=== PATIENT | female | born 1990 | race Caucasian/White ===

== ENCOUNTER 2021-09-30 12:21 | Emergency (ER) | payer MEDICAID, SELFPAY ==
[2021-09-30 12:54] VITALS: BP 127/90; PULSE 76; RESP 18; TEMP 36.9; O2SAT 99; BMI 23.8
[2021-09-30 14:42] LABS: PLT CLUMP 1
[2021-09-30 14:44] LABS: Hematocrit 40.4 % (37.0-47.0); Hemoglobin 13.5 g/dl (12.0-16.0); Mean Corpuscular HGB Conc 33.4 g/dl (31.0-35.0); Mean Corpuscular Hemoglobin 29.5 pg (27.0-33.0); Mean Corpuscular Volume 88.2 fL (80.0-98.0); Mean Platelet Volume 10.6 fL (9.4-12.3); Red Blood Count 4.58 X10*6/uL (4.20-5.50); Red Cell Distribution Width 12.8 % (11.0-16.0)
[2021-09-30 14:48] LABS: COVID-19 Test Negative (Negative)
[2021-09-30 14:54] LABS: IDNOW Serial# 55D5AD1C; Influenza A Negative (Negative); Influenza B2 Negative (Negative)
[2021-09-30 15:00] LABS: Strep A Nucleic Acid Negative (Negative)
[2021-09-30 15:01] LABS: Alanine Aminotransferase 67 U/L (0-31); Albumin Level 4.1 g/dL (3.5-5.0); Alkaline Phosphatase 70 U/L (39-117); Anion Gap 12 (12-20); Aspartate Amino Transferase 55 U/L (5-31); Bilirubin Total 0.5 mg/dL (0.0-1.0); Blood Urea Nitrogen 10 mg/dL (9-16); Calcium 9.4 mg/dL (8.4-10.2); Carbon Dioxide 26 mmol/L (22-29); Chloride 104 mmol/L (96-108); Creatinine Clr Calc Pharmacy 85.9; Estimated Glomerular Filt Rate > 60; Glucose Random 106 mg/dL (60-115); Potassium 4.1 mmol/L (3.3-5.1); Sodium 138 mmol/L (135-145); Total Protein 7.8 g/dL (6.5-8.0)
[2021-09-30 15:40] LABS: Platelet Count 124 X10*3/uL (160-400); White Blood Count 8.1 X10*3/uL (4.8-10.8)
[2021-09-30 16:17] LABS: Atypical Lymph Absolute Manual 1.1 x10*3/uL; Atypical Lymphs Percent Manual 14 % (0-6); Band Neutrophils Percent 1 % (3-5); Basophils Abs Manual 0.1 X10*3/uL (0.0-0.2); Basophils Percent Manual 1 % (0-2); Eosinophils Absolute Manual 0.2 X10*3/uL (0.0-0.4); Eosinophils Percent Manual 2 % (0-4); Lymphocytes Absolute Manual 3.8 X10*3/uL (1.2-4.9); Lymphocytes Percent Manual 47 % (20-40); Monocytes Absolute Manual 0.6 X10*3/uL (0.1-1.2); Monocytes Percent Manual 7 % (2-11); Neutrophils Absolute Manual 2.3 X10*3/uL (2.0-8.3); Neutrophils Percent Manual 28 % (45-73)
[2021-09-30 16:19] LABS: Microcytosis 1+ (5-14) /OIF; RBC Morphology NOTED
[2021-09-30 16:20] LABS: Giant Platelet PRESENT; Large Platelet PRESENT; Platelet Estimate SLIGHTLY DECREASED (NORMAL); Platelet Morphology Comment NOTED; Polychromasia 1+ (0-2) /OIF
[2021-09-30 16:21] LABS: Smudge Cells PRESENT; Toxic Granulation PRESENT; Toxic Vacuolation PRESENT
--- NOTE | 2021-09-30 17:00 | ED.GENADULT ---
HPI - General Adult General Chief complaint: General Medical Stated complaint: body aches Time Seen by Provider: 09/30/21 12:24 Source: patient Mode of arrival: ambulatory Limitations: no limitations History of Present Illness HPI narrative: 31-year-old female presents with symptoms that started yesterday body ache and sore throat. Patient lives with 3 other people 2 of which have tested positive for influenza A. No cough, no chest pain, no shortness of breath, no diarrhea, vomiting, abdominal pain, no urinary frequency or dysuria Related Data Previous Rx's Medication Instructions Recorded oseltamivir 75 mg capsule 75 mg PO BID 5 Days #10 cap 09/30/21 Allergies Allergy/AdvReac Type Severity Reaction Status Date / Time No Known Allergies Allergy Unverified 02/20/20 19:33 [No Known Allergies*] Review of Systems Constitutional: Constitutional: Reports body ache(s), Reports chills, Denies fatigue, Denies fever(s), Denies headache(s), Reports malaise and Denies weakness Eyes: Eyes: Denies diplopia ENT: Denies vertigo, Denies dizziness, Denies otalgia, Denies headache(s), Reports post nasal drip, Denies sinus pain and Reports sore throat Cardiovascular: Cardiovascular: Denies chest pain, Denies syncope, Denies leg edema, Denies lightheadedness, Denies Loss of Consciousness, Denies palpitations and Denies dyspnea Respiratory: Respiratory: Denies chest congestion, Denies cough and Denies dyspnea Gastrointestinal: Gastrointestinal: Denies abdominal pain, Denies hematochezia, Denies constipation, Denies diarrhea and Denies vomiting Musculoskeletal: Musculoskeletal: Reports myalgias Neurologic: Denies confusion, Denies vertigo, Denies dizziness, Denies syncope, Denies headache(s) and Denies weakness Psychiatric: Psychiatric: Denies anxiety, Denies confusion and Denies depression Endocrine: Endocrine: Denies fatigue and Denies palpitations [facility] Past Medical History Medical History (Updated 09/30/21 @ 16:20 by LATONYA Hurtado) No known health problems Social History Social History Advance Directives: No Advance Directives Information Provided: No Patient : No Physical Exam ED Vital Signs: Vital Signs - 24 hr 09/30/21 12:54 Temperature 98.5 F Pulse Rate 76 Respiratory Rate 18 Blood Pressure 127/90 H Pulse Oximetry 99 BMI result Body Mass Index 23.8 Const General: No confusion Nutritional Appearance: well nourished Orientation/consciousness: No confusion Limitations: no limitations HENMT Head: Yes normal to inspection, Yes normocephalic and Yes atraumatic Ears: hearing grossly normal bilaterally, external ears normal, TM's normal bilaterally and EAC's normal General nose exam: Normal external nose present Face and sinus: Yes normal facial exam and Yes sinuses nontender Mouth: mucous membranes dry Throat: Yes posterior oropharynx abnormal and Yes postnasal drainage Eyes Conjunctivae: conjunctivae normal Pupils: Equal, round and reactive pupils present EOM: EOMs intact bilaterally Neck Neck: Yes full ROM, Yes no lymphadenopathy and Yes supple Resp Effort & Inspection: normal respiratory effort and able to speak in complete sentences Auscultation: clear to auscultation bilaterally, no crackles, no rales, no rhonchi and no wheezes Cardio Rate: regular rate Rhythm: regular rhythm Heart sounds: S1 normal heart sound present and S2 normal heart sound present GI Inspection: Yes normal to inspection Palpation (GI): Soft to palpation, nontender, no guarding and not rigid Percussion: Yes normal to percussion Auscultation: normal bowel sounds Skin General skin exam: no rashes or lesions noted Neuro General: No confusion Cranial nerves: Yes Equal, round and reactive pupils present Extrem General: Yes normal to inspection and Yes full ROM Psych Appearance: grossly normal Affect: normal affect Attitude: cooperative Thought process: Normal thought process present Course Course Course Narrative: 31-year-old female with flu-like symptoms that started yesterday. Patient has 2/3 other people she lives with test positive for flu today. On exam, stable vitals, lungs clear to auscultation bilaterally. Injected oropharynx. Will treat with Tamiflu given patient's flu exposure and most likely etiology of this viral illness Gave return precautions Medical Decision Making Lab Data Result diagrams: 09/30/21 14:31 09/30/21 14:31 Labs: Lab Results 09/30/21 09/30/21 09/30/21 Range/Units 13:45 13:45 13:45 WBC (4.8-10.8) X10*3/uL RBC (4.20-5.50) X10*6/uL Hgb (12.0-16.0) g/dl Hct (37.0-47.0) % MCV (80.0-98.0) fL MCH (27.0-33.0) pg MCHC (31.0-35.0) g/dl RDW (11.0-16.0) % Plt Count (160-400) X10*3/uL MPV (9.4-12.3) fL Immature Gran % (Auto) Neut % (Auto) Lymph % (Auto) Crook % (Auto) Eos % (Auto) Baso % (Auto) Lymph # (Auto) [place] # (Auto) Eos # (Auto) Baso # (Auto) Abs Immat Gran (auto) Absolute Neuts (auto) Absolute Nucleated RBC (0.0-0.012) X10*3/uL Nucleated RBC % (auto) (0.0-0.2) /100WBC Neutrophils % (Manual) (45-73) % Band Neutrophils % (3-5) % Lymphocytes % (Manual) (20-40) % Atypical Lymphs % (Man) (0-6) % Monocytes % (Manual) (2-11) % Eosinophils % (Manual) (0-4) % Basophils % (Manual) (0-2) % Abs Neuts (Manual) (2.0-8.3) X10*3/uL Lymphocytes # (Manual) (1.2-4.9) X10*3/uL Atyp Lymphs # (Manual) x10*3/uL Monocytes # (Manual) (0.1-1.2) X10*3/uL Eosinophils # (Manual) (0.0-0.4) X10*3/uL Basophils # (Manual) (0.0-0.2) X10*3/uL Smudge Cells Toxic Granulation Toxic Vacuolation Platelet Estimate (NORMAL) Large Platelets Giant Platelets Plt Morphology Comment RBC Morphology Polychromasia /OIF Microcytosis /OIF Sodium (135-145) mmol/L Potassium (3.3-5.1) mmol/L Chloride (96-108) mmol/L Carbon Dioxide (22-29) mmol/L Anion Gap (12-20) BUN (9-16) mg/dL Creatinine (0.5-1.4) mg/dL Estim Creat Clear Calc Estimated GFR Random Glucose (60-115) mg/dL Calcium (8.4-10.2) mg/dL Total Bilirubin (0.0-1.0) mg/dL AST (5-31) U/L ALT (0-31) U/L Alkaline Phosphatase (39-117) U/L Total Protein (6.5-8.0) g/dL Albumin (3.5-5.0) g/dL COVID-19 (JORDYN) Negative (Negative) COVID-19 Clin Com See Note Influenza Type A (MIKIE) Negative (Negative) Influenza Type B (MIKIE) Negative (Negative) Influenza A & B Note See Note S. pyogenes GrpA MIKIE Negative (Negative) 09/30/21 09/30/21 Range/Units 14:31 14:31 WBC 8.1 (4.8-10.8) X10*3/uL RBC 4.58 (4.20-5.50) X10*6/uL Hgb 13.5 (12.0-16.0) g/dl Hct 40.4 (37.0-47.0) % MCV 88.2 (80.0-98.0) fL MCH 29.5 (27.0-33.0) pg MCHC 33.4 (31.0-35.0) g/dl RDW 12.8 (11.0-16.0) % Plt Count 124 L (160-400) X10*3/uL MPV 10.6 (9.4-12.3) fL Immature Gran % (Auto) Cancelled Neut % (Auto) Cancelled Lymph % (Auto) Cancelled Crook % (Auto) Cancelled Eos % (Auto) Cancelled Baso % (Auto) Cancelled Lymph # (Auto) Cancelled Crook # (Auto) Cancelled Eos # (Auto) Cancelled Baso # (Auto) Cancelled Abs Immat Gran (auto) Cancelled Absolute Neuts (auto) Cancelled Absolute Nucleated RBC 0.000 (0.0-0.012) X10*3/uL Nucleated RBC % (auto) 0.0 (0.0-0.2) /100WBC Neutrophils % (Manual) 28 L (45-73) % Band Neutrophils % 1 L (3-5) % Lymphocytes % (Manual) 47 H (20-40) % Atypical Lymphs % (Man) 14 H (0-6) % Monocytes % (Manual) 7 (2-11) % Eosinophils % (Manual) 2 (0-4) % Basophils % (Manual) 1 (0-2) % Abs Neuts (Manual) 2.3 (2.0-8.3) X10*3/uL Lymphocytes # (Manual) 3.8 (1.2-4.9) X10*3/uL Atyp Lymphs # (Manual) 1.1 x10*3/uL Monocytes # (Manual) 0.6 (0.1-1.2) X10*3/uL Eosinophils # (Manual) 0.2 (0.0-0.4) X10*3/uL Basophils # (Manual) 0.1 (0.0-0.2) X10*3/uL Smudge Cells PRESENT Toxic Granulation PRESENT Toxic Vacuolation PRESENT Platelet Estimate SLIGHTLY DECREASED (NORMAL) Large Platelets PRESENT Giant Platelets PRESENT Plt Morphology Comment NOTED RBC Morphology NOTED Polychromasia 1+ (0-2) /OIF Microcytosis 1+ (5-14) /OIF Sodium 138 (135-145) mmol/L Potassium 4.1 (3.3-5.1) mmol/L Chloride 104 (96-108) mmol/L Carbon Dioxide 26 (22-29) mmol/L Anion Gap 12 (12-20) BUN 10 (9-16) mg/dL Creatinine 0.75 (0.5-1.4) mg/dL Estim Creat Clear Calc 85.9 Estimated GFR > 60 Random Glucose 106 (60-115) mg/dL Calcium 9.4 (8.4-10.2) mg/dL Total Bilirubin 0.5 (0.0-1.0) mg/dL AST 55 H (5-31) U/L ALT 67 H (0-31) U/L Alkaline Phosphatase 70 (39-117) U/L Total Protein 7.8 (6.5-8.0) g/dL Albumin 4.1 (3.5-5.0) g/dL COVID-19 (JORDYN) (Negative) COVID-19 Clin Com Influenza Type A (MIKIE) (Negative) Influenza Type B (MIKIE) (Negative) Influenza A & B Note S. pyogenes GrpA MIKIE (Negative) Discharge Plan Discharge Clinical Impression: Influenza A Patient Disposition: Home, Self-Care Instructions: Influenza (ED) Additional Instructions: Please drink plenty of fluids, taking medicine, take Tylenol, saltwater gargles, return for any new concerning symptoms Prescriptions: New oseltamivir 75 mg capsule 75 mg PO BID 5 Days Qty: 10 0RF Interventions: ED Discharge Assessment Last Done: 09/30/21 16:51 Discharge Date/Time: 09/30/21 16:52
== END 2021-09-30 16:52 | disposition home or self-care (01) ==
PROVIDERS: Physician Assistant; Physician Assistant Medical; Emergency Provider Emergency Medicine; PCP Student in an Organized Health Care Education/Training Program
DX: J10.1 Influenza due to other identified influenza virus with other respiratory manifestations (principal); Z20.822 Contact with and (suspected) exposure to COVID-19
CPT/HCPCS: 36415; 80053; 85007; 85025; 85027; 87502; 87635; 87651; 99282; 99283

== ENCOUNTER 2022-02-13 18:10 | Emergency (ER) | payer MEDICAID, SELFPAY ==
--- NOTE | ~2022-02-13 | CT_ITS ---
EXAMINATION: CT ABDOMEN AND PELVIS WITHOUT CONTRAST CLINICAL INFORMATION: Urinary symptoms, vaginal bleeding and suprapubic discomfort COMPARISON: None TECHNIQUE: Multidetector volumetric imaging was performed from the superior aspect of the liver through the pubic symphysis. Sagittal and coronal reformatted images were obtained on the technologist's workstation. This CT examination was performed using dose optimization techniques as appropriate, variously including the following: *Automated exposure control *Adjustment of mA and/or kV according to patient size (this includes techniques or standardized protocols for targeted exams where dose is matched to indication/reason for exam; i.e. extremities or head) *Use of iterative reconstruction technique DLP: 370 mGy-cm FINDINGS: LUNG BASES: The visualized lung bases are unremarkable. LIVER, GALLBLADDER, AND BILIARY TREE: The liver is normal in size, shape, and attenuation. No focal hepatic lesion or biliary ductal dilatation is present. The gallbladder is unremarkable with no evidence of radiopaque gallstones, gallbladder wall thickening, or obvious pericholecystic inflammatory changes. PANCREAS: Unremarkable. SPLEEN: Unremarkable. ADRENAL GLANDS: Unremarkable. KIDNEYS AND URETERS: The kidneys are normal in size, shape, and attenuation. No hydronephrosis, hydroureter, or calculi seen. No perinephric stranding. BLADDER: Limited distention. No appreciable bladder wall thickening or surrounding inflammatory fat stranding GASTROINTESTINAL TRACT: Moderate to large amount of formed stool throughout the nondilated colon. No dilated bowel loops. No bowel wall thickening. Appendix is not visualized. No inflammatory change at the cecal base. No ascites or free air. ABDOMINAL WALL: No significant hernia is appreciated. LYMPH NODES: No lymphadenopathy VASCULAR: Normal caliber abdominal aorta. PELVIC VISCERA: Gynecologic structures are grossly unremarkable-limited assessment. Trace free pelvic fluid, within the physiologic range. OSSEOUS STRUCTURES: Unremarkable. CT/CT abdomen pelvis wo IV con IMPRESSION: 1. No acute intra-abdominal process identified. 2. Moderate to large amount of formed stool throughout the colon. Correlate clinically with signs or symptoms of constipation. 3. Trace free pelvic fluid, within the physiologic range. Fleischner guidelines were followed.
[2022-02-13 18:39] VITALS: BP 131/82; PULSE 68; RESP 18; TEMP 36.3; O2SAT 100; BMI 24.7
[2022-02-13 19:48] LABS: Appearance Urine Clear; Color Urine Yellow; Glucose Urine UA Negative (Negative); Leukocyte Esterase Urine Trace (Negative); Nitrite Urine Negative (Negative); PH 5.5 (5.0-9.0); Specific Gravity - Urine 1.015 (1.005-1.025); Urine Blood Large (3+) (Negative); Urine Ketones Negative (Negative); Urine Protein Negative (Neg-Trace)
[2022-02-13 19:51] LABS: Bacteria Urine None Seen (None Seen); Hyaline Casts Urine 0-2 /LPF (0-2); RBC Urine >20 /HPF (0-2); Squamous Epithelial Cell Urine 0-2 /HPF (0-2); WBC Urine 0-5 /HPF (0-5)
--- NOTE | 2022-02-13 20:23 | ED.FEMALEGU ---
HPI - Female Genitourinary General Chief complaint: Urogenital-Female Stated complaint: urine concerns + bones ache Time Seen by Provider: 02/13/22 20:05 Source: patient Mode of arrival: ambulatory Limitations: no limitations History of Present Illness HPI Narrative: 32-year-old female with no pertinent PMHx who presents to the ED for lower abdominal pain, vaginal bleeding, and myalgias x 1 day. The patient reports that today she developed suprapubic abdominal pain, non-radiating and began having vaginal bleeding X2 days. She reports that her last menstrual period was only 2 weeks ago in the typically regular only occurring once a month, though she reports missing her depo provera shot in December. She went through 6 pads today, containing dark blood w/o clots. She is unsure if she may be . She also reports that she was diagnosed with a UTI 6 weeks ago and prescribed antibiotics at that time, however, upon finishing this course she had persistent symptoms so she bought Ampicillin from a grocery store ([employer]). She reports that despite this her symptoms have been persistent and that she has been having urinary frequency and subprapubic pain. She denies any fevers, chills, headaches, dizziness, pelvic pain, pain w/ intercourse, back pain, chest pain, shortness of breath, nausea, or vomiting. Related Data Previous Rx's Medication Instructions Recorded oseltamivir 75 mg capsule 75 mg PO BID 5 days #10 caps 09/30/21 cefuroxime axetil 250 mg tablet 250 mg PO BID 5 days #10 tabs 02/13/22 docusate sodium 100 mg capsule 100 mg PO BID #20 caps 02/13/22 (Colace) phenazopyridine 100 mg tablet 200 mg PO TID 2 days #6 tabs 02/13/22 (Pyridium) sennosides 8.6 mg tablet (senna) 8.6 mg PO BEDTIME #14 tabs 02/13/22 Allergies Allergy/AdvReac Type Severity Reaction Status Date / Time No Known Allergies Allergy Verified 02/13/22 18:43 [No Known Allergies*] Review of Systems Review of Systems: Constitutional : No Weight loss, No Fever, No Chills, + Fatigue, No Malaise ENT/Mouth : No sore throat, No Rhinorrhea Eyes: No Eye Pain, No Swelling, No Redness Cardiovascular : No Chest Pain, No SOB, No Dyspnea on Exertion, No Orthopnea, No Edema, No Palpitations Respiratory : No Cough, No Sputum, No Wheezing Gastrointestinal : No Nausea, No Vomiting, No Diarrhea, No Constipation, + abdominal Pain (suprapubic), No Hematochezia, No Melena Genitourinary : + Dysuria, + Urinary Frequency, No Hematuria, + vaginal bleeding Musculoskeletal : No joint pain, No Myalgias, No Joint Swelling Skin : No Skin Lesions, No rash Neuro : No Weakness, No Numbness, No Dizziness, No Headache Psych : No Anxiety/Panic, No Depression All other systems reviewed and are negative Yes all other systems are reviewed and are negative [facility] Past Medical History Attestation statement: The following information was validated with the patient. Source: old records reviewed and nursing notes reviewed Medical History No known health problems Social History Social History Advance Directives: No Advance Directives Information Provided: Yes Physical Exam Vital Signs: Vital Signs: Last Vital Signs Temp 97.4 F 02/13/22 18:39 Pulse 68 02/13/22 18:39 Resp 18 02/13/22 18:39 BP 131/82 02/13/22 18:39 Pulse Ox 100 02/13/22 18:39 O2 Del Method 02/13/22 18:39 BMI result Body Mass Index 24.7 vss Appearance: Alert.? Oriented X3.? No acute distress.? Head: Normocephalic, atraumatic, no step-offs or deformities Eyes: Pupils equal, round and reactive to light.? Neck: Normal inspection.? Neck supple.? CVS: Normal heart rate and rhythm.? Pulses normal.? Respiratory: No respiratory distress.? Breath sounds normal.? Abdomen: Soft. +BS. + Mild suprapubic discomfort w/ palpation. No adnexal tenderness. Negative Villafuerte's, Mcburneys, rovsing signs. Skin: Skin warm and dry.? Normal skin color.? Normal skin turgor.? Extremities: No lower extremity edema.? No calf ttp. 5/5 strength to bilateral upper and lower extremities Sensitive exam: normal external genitalia, cervix is closed, no lumps, masses or lesions upon inspection, there is bright red dark blood within the vaginal canal, patient currently menstruating. No pain with bimanual exam. Unable to palpate any lumps or masses. Patient tolerated procedure well, denies any pain during examination Back: No midline tenderness, no C-spine tenderness, full range of motion, no CVA tenderness bilaterally Neuro: Oriented X 3.? No motor deficit.? No sensory deficit. CN 2-12 intact Course Reevaluation(s) Reevaluation #1: CBC and chemistry Appear to be at patient's baseline. Serum HCG negative. UA positive for blood with trace leukocytes. COVID negtive. Pending repeat CBC to assess stability of H&H. Time: 23:00 Reevaluation #2: CT of the abdomen and pelvis with no acute intra-abdominal process identified, moderate to large amount of formed stool throughout the colon, will give patient senna and Colace for constipation. There is trace free pelvic fluid within physiologic range within the pelvis per expected. Repeat H&H stable, no signs of hemodynamic instability. UA with no signs of acute infection however patient is symptomatic will send her home on Ceftin for 5 days as well as Pyridium. I advised her to not buy [id number] medications at [facility]. I also advised her to follow-up with her OBGYN as soon as possible. I repeated her abdominal exam which is benign, no pain with palpation in suprapubic region, negative CVA tenderness, again dark red blood in the vaginal canal, without clots, closed cervical os. Painless. She will be discharged home with prompt PCP and OBGYN follow-up, she tells me she has an OBGYN however I also gave her information for our OBGYN and K she is not able to get in in a timely manner. Advised her to call her PCP 1st thing tomorrow morning, patient agrees, patient feels comfortable with plan, patient without pain upon discharge tolerating p.o., appears comfortable, hemodynamically stable and in no acute distress. Time: 23:53 MDM - Female Genitourinary MDM Narrative Medical decision making narrative: 1999 32-year-old female presents with suprapubic discomfort, urinary frequency, urgency, vaginal bleeding. Physical examination with mild discomfort with palpation of suprapubic region. Normal sensitive exam. Hemodynamically stable. Patient appears comfortable and in no acute distress. Regular rate and rhythm. Lungs clear. Abdomen soft nontender nondistended. patient likely menstruating status post missing her Depo-Provera shot, abnormal uterine bleeding. Low suspicion for ruptured ovarian cyst or ovarian torsion. Patient has a painless sensitive exam which again is reassuring that these 2 diagnoses are unlikely. Patient is hemodynamically stable. Unlikely appendicitis, cholecystitis, diverticulitis. No CVA tenderness unlikely that this is pyelo. No signs of acute abdomen. Plan at this time is to obtain an HCG, basic labs, urine, CT of the abdomen and pelvis, COVID test. Medical Records Attestation: I reviewed the patient's medical records. Lab Data Attestation: I reviewed the patient's lab results. Result diagrams: 02/13/22 22:53 02/13/22 20:39 Labs: Lab Results 02/13/22 02/13/22 02/13/22 Range/Units 19:40 20:39 20:39 WBC 8.3 (4.8-10.8) X10*3/uL RBC 4.70 (4.20-5.50) X10*6/uL Hgb 13.9 (12.0-16.0) g/dl Hct 41.5 (37.0-47.0) % MCV 88.3 (80.0-98.0) fL MCH 29.6 (27.0-33.0) pg MCHC 33.5 (31.0-35.0) g/dl RDW 12.1 (11.0-16.0) % Plt Count 194 D (160-400) X10*3/uL MPV 10.4 (9.4-12.3) fL Immature Gran % (Auto) 0.2 (0.0-0.4) % Neut % (Auto) 39.4 L (45-73) % Lymph % (Auto) 46.9 H (20-40) % Dent % (Auto) 10.6 (2-11) % Eos % (Auto) 2.2 (0-4) % Baso % (Auto) 0.7 (0-2) % Lymph # (Auto) 3.9 (1.2-4.9) X10*3/uL Dent # (Auto) 0.9 (0.1-1.2) X10*3/uL Eos # (Auto) 0.2 (0.0-0.4) X10*3/uL Baso # (Auto) 0.1 (0.0-0.2) X10*3/uL Abs Immat Gran (auto) 0.02 (0.00-0.03) X10*3/uL Absolute Neuts (auto) 3.3 (2.0-8.3) x10*3/uL Absolute Nucleated RBC 0.000 (0.0-0.012) X10*3/uL Nucleated RBC % (auto) 0.0 (0.0-0.2) /100WBC Sodium 141 (135-145) mmol/L Potassium 3.6 (3.3-5.1) mmol/L Chloride 105 (96-108) mmol/L Carbon Dioxide 26 (22-29) mmol/L Anion Gap 14 (12-20) BUN 11 (9-16) mg/dL Creatinine 0.75 (0.5-1.4) mg/dL Estim Creat Clear Calc 92.7 Estimated GFR > 60 Random Glucose 78 (60-115) mg/dL Calcium 9.4 (8.4-10.2) mg/dL Total Bilirubin 0.4 (0.0-1.0) mg/dL AST 21 D (5-31) U/L ALT 30 (0-31) U/L Alkaline Phosphatase 77 (39-117) U/L Total Protein 7.6 (6.5-8.0) g/dL Albumin 4.5 (3.5-5.0) g/dL Beta HCG, Quant mIU/mL Urine Color Yellow Urine Appearance Clear Urine pH 5.5 (5.0-9.0) Ur Specific [place] 1.015 (1.005-1.025) Urine Protein Negative (Neg-Trace) mg/dL Urine Glucose (UA) Negative (Negative) mg/dL Urine Ketones Negative (Negative) mg/dL Urine Blood Large (3+) H (Negative) Urine Nitrite Negative (Negative) Ur Leukocyte Esterase Trace H (Negative) Urine RBC >20 H (0-2) /HPF Urine WBC 0-5 (0-5) /HPF Ur Squamous Epith Cells 0-2 (0-2) /HPF Urine Bacteria None Seen (None Seen) Hyaline Casts 0-2 (0-2) /LPF COVID-19 (JORDYN) (Negative) COVID-19 Clin Com 02/13/22 02/13/22 02/13/22 Range/Units 20:39 20:39 22:53 WBC 8.0 (4.8-10.8) X10*3/uL RBC 4.45 (4.20-5.50) X10*6/uL Hgb 13.1 (12.0-16.0) g/dl Hct 39.2 (37.0-47.0) % MCV 88.1 (80.0-98.0) fL MCH 29.4 (27.0-33.0) pg MCHC 33.4 (31.0-35.0) g/dl RDW 12.2 (11.0-16.0) % Plt Count 179 (160-400) X10*3/uL MPV 9.9 (9.4-12.3) fL Immature Gran % (Auto) 0.4 (0.0-0.4) % Neut % (Auto) 41.0 L (45-73) % Lymph % (Auto) 45.9 H (20-40) % Dent % (Auto) 10.2 (2-11) % Eos % (Auto) 1.9 (0-4) % Baso % (Auto) 0.6 (0-2) % Lymph # (Auto) 3.7 (1.2-4.9) X10*3/uL Dent # (Auto) 0.8 (0.1-1.2) X10*3/uL Eos # (Auto) 0.2 (0.0-0.4) X10*3/uL Baso # (Auto) 0.1 (0.0-0.2) X10*3/uL Abs Immat Gran (auto) 0.03 (0.00-0.03) X10*3/uL Absolute Neuts (auto) 3.3 (2.0-8.3) x10*3/uL Absolute Nucleated RBC 0.000 (0.0-0.012) X10*3/uL Nucleated RBC % (auto) 0.0 (0.0-0.2) /100WBC Sodium (135-145) mmol/L Potassium (3.3-5.1) mmol/L Chloride (96-108) mmol/L Carbon Dioxide (22-29) mmol/L Anion Gap (12-20) BUN (9-16) mg/dL Creatinine (0.5-1.4) mg/dL Estim Creat Clear Calc Estimated GFR Random Glucose (60-115) mg/dL Calcium (8.4-10.2) mg/dL Total Bilirubin (0.0-1.0) mg/dL AST (5-31) U/L ALT (0-31) U/L Alkaline Phosphatase (39-117) U/L Total Protein (6.5-8.0) g/dL Albumin (3.5-5.0) g/dL Beta HCG, Quant < 2 mIU/mL Urine Color Urine Appearance Urine pH (5.0-9.0) Ur Specific [place] (1.005-1.025) Urine Protein (Neg-Trace) mg/dL Urine Glucose (UA) (Negative) mg/dL Urine Ketones (Negative) mg/dL Urine Blood (Negative) Urine Nitrite (Negative) Ur Leukocyte Esterase (Negative) Urine RBC (0-2) /HPF Urine WBC (0-5) /HPF Ur Squamous Epith Cells (0-2) /HPF Urine Bacteria (None Seen) Hyaline Casts (0-2) /LPF COVID-19 (JORDYN) Negative (Negative) COVID-19 Clin Com See Note Critical Care Time Critical Care Time Critical Care Time: No Discharge Plan Discharge Clinical Impression: Vaginal bleeding, Cystitis, Suprapubic tenderness, Urinary frequency, Urinary urgency, Constipation Patient Disposition: Home, Self-Care Instructions: Dysfunctional Uterine Bleeding (ED), Abdominal Pain (ED), Urinary Urgency and Frequency (DC) Additional Instructions: Take your medications as prescribed. If you were prescribed antibiotics today, it is important that you take your medication to their entirety, do not skip any doses, do not finish them early. Follow-up with your primary care provider this week. follow-up with OBGYN as soon as possible. Return to the emergency department with new or worsening symptoms. Such as fevers, chills, chest pain, shortness of breath, nausea, vomiting, dizziness, headache, vision changes, lethargy In case of emergency call 911 CT/CT abdomen pelvis wo IV con IMPRESSION: ? 1. No acute intra-abdominal process identified. 2. Moderate to large amount of formed stool throughout the colon. Correlate clinically with signs or symptoms of constipation. 3. Trace free pelvic fluid, within the physiologic range.? ? Fleischner guidelines were followed. Prescriptions: New cefuroxime axetil 250 mg tablet 250 mg PO BID 5 Days Qty: 10 0RF phenazopyridine [Pyridium] 100 mg tablet 200 mg PO TID 2 Days Qty: 6 0RF sennosides [senna] 8.6 mg tablet 8.6 mg PO BEDTIME Qty: 14 0RF docusate sodium [Colace] 100 mg capsule 100 mg PO BID Qty: 20 0RF No Action oseltamivir 75 mg capsule 75 mg PO BID 5 Days Qty: 10 0RF Referrals: PhysicianButch [Primary Care Provider] - 2 days Dami Kinney MD [Physician] - 2 days Stand Alone Forms: Work/School Release
[2022-02-13 20:46] LABS: MANUAL DIFF FLAG NO
[2022-02-13 20:52] LABS: Basophils Absolute Auto 0.1 X10*3/uL (0.0-0.2); Basophils Percent Auto 0.7 % (0-2); Eosinophils Absolute Auto 0.2 X10*3/uL (0.0-0.4); Eosinophils Percent Auto 2.2 % (0-4); Hematocrit 41.5 % (37.0-47.0); Hemoglobin 13.9 g/dl (12.0-16.0); Imm Gran Abs Auto 0.02 X10*3/uL (0.00-0.03); Imm Gran Pct Auto 0.2 % (0.0-0.4); Lymphocytes Absolute Auto 3.9 X10*3/uL (1.2-4.9); Lymphocytes Percent Auto 46.9 % (20-40); Mean Corpuscular HGB Conc 33.5 g/dl (31.0-35.0); Mean Corpuscular Hemoglobin 29.6 pg (27.0-33.0); Mean Corpuscular Volume 88.3 fL (80.0-98.0); Mean Platelet Volume 10.4 fL (9.4-12.3); Monocytes Absolute Auto 0.9 X10*3/uL (0.1-1.2); Monocytes Percent Auto 10.6 % (2-11); Neutrophils Absolute Auto 3.3 x10*3/uL (2.0-8.3); Neutrophils Percent Auto 39.4 % (45-73); Platelet Count 194 X10*3/uL (160-400); Red Cell Distribution Width 12.1 % (11.0-16.0); White Blood Count 8.3 X10*3/uL (4.8-10.8)
[2022-02-13 21:07] LABS: COVID-19 Test Negative (Negative); IDNOW Serial# 16C4AD1C
[2022-02-13 21:10] LABS: Alanine Aminotransferase 30 U/L (0-31); Albumin Level 4.5 g/dL (3.5-5.0); Alkaline Phosphatase 77 U/L (39-117); Anion Gap 14 (12-20); Aspartate Amino Transferase 21 U/L (5-31); Bilirubin Total 0.4 mg/dL (0.0-1.0); Blood Urea Nitrogen 11 mg/dL (9-16); Calcium 9.4 mg/dL (8.4-10.2); Carbon Dioxide 26 mmol/L (22-29); Chloride 105 mmol/L (96-108); Creatinine Clr Calc Pharmacy 92.7; Estimated Glomerular Filt Rate > 60; Glucose Random 78 mg/dL (60-115); Potassium 3.6 mmol/L (3.3-5.1); Sodium 141 mmol/L (135-145); Total Protein 7.6 g/dL (6.5-8.0)
[2022-02-13 21:12] LABS: HCG Quantitative < 2 mIU/mL
[2022-02-13 22:57] LABS: MANUAL DIFF FLAG NO
[2022-02-13 22:59] LABS: Basophils Absolute Auto 0.1 X10*3/uL (0.0-0.2); Basophils Percent Auto 0.6 % (0-2); Eosinophils Absolute Auto 0.2 X10*3/uL (0.0-0.4); Eosinophils Percent Auto 1.9 % (0-4); Hematocrit 39.2 % (37.0-47.0); Hemoglobin 13.1 g/dl (12.0-16.0); Imm Gran Abs Auto 0.03 X10*3/uL (0.00-0.03); Imm Gran Pct Auto 0.4 % (0.0-0.4); Lymphocytes Absolute Auto 3.7 X10*3/uL (1.2-4.9); Lymphocytes Percent Auto 45.9 % (20-40); Mean Corpuscular HGB Conc 33.4 g/dl (31.0-35.0); Mean Corpuscular Hemoglobin 29.4 pg (27.0-33.0); Mean Corpuscular Volume 88.1 fL (80.0-98.0); Mean Platelet Volume 9.9 fL (9.4-12.3); Monocytes Absolute Auto 0.8 X10*3/uL (0.1-1.2); Monocytes Percent Auto 10.2 % (2-11); Neutrophils Absolute Auto 3.3 x10*3/uL (2.0-8.3); Platelet Count 179 X10*3/uL (160-400); Red Blood Count 4.45 X10*6/uL (4.20-5.50); Red Cell Distribution Width 12.2 % (11.0-16.0)
== END 2022-02-14 00:05 | disposition home or self-care (01) ==
PROVIDERS: Physician Assistant; Emergency Provider Internal Medicine
DX: N30.90 Cystitis, unspecified without hematuria (principal); M79.10 Myalgia, unspecified site; N93.8 Other specified abnormal uterine and vaginal bleeding; R35.0 Frequency of micturition; K59.00 Constipation, unspecified; N39.41 Urge incontinence; Z20.822 Contact with and (suspected) exposure to COVID-19; Z79.899 Other long term (current) drug therapy
CPT/HCPCS: 36415; 74176; 80053; 81001; 84702; 85025; 87635; 99282; 99283

== ENCOUNTER 2022-03-28 15:31 | Outpatient (REF) | payer MEDICAID, SELFPAY ==
--- NOTE | ~2022-03-28 | US_ITS ---
EXAMINATION: US PELVIS CLINICAL INFORMATION: Pelvic pain COMPARISON: Previous CT of the abdomen and pelvis February 2022 TECHNIQUE: Ultrasound of the pelvis is performed using both transabdominal and transvaginal transducers along with Doppler. Transvaginal imaging is performed due to inadequate visualization transabdominally. FINDINGS: The uterus is anteverted and measures 8.5 x 4.2 x 5.5 cm in dimension. There is a 1.1 x 1.1 x 0.8 cm hypoechoic lesion in the upper intramural right uterine body questionable for a small fibroid. No other focal uterine lesion is seen. Normal thickness endometrium measuring 1.1 cm. Small nabothian cysts in the cervix. The right ovary measures 3 x 1.6 x 2.1 cm and is normal-appearing. The left ovary measures 3.4 x 2.4 x 2.6 cm. There is a complex left ovarian cyst that is irregularly-shaped with thickened echogenic wall and internal echoes questionable for an involuting physiologic cyst. There is no fluid in the pelvis. US/US pelvic and transvaginal IMPRESSION: Question small right uterine body fibroid. 2 x 1.7 x 1.3 cm complex right ovarian cyst probably representing an involuting physiologic cyst.
== END 2022-03-28 15:32 | disposition home or self-care (01) ==
LOC: HO.HMGCX 15:31
PROVIDERS: PCP Student in an Organized Health Care Education/Training Program; Visit Provider Family Medicine
DX: R10.2 Pelvic and perineal pain (principal)
CPT/HCPCS: 76830; 76856

== ENCOUNTER 2022-04-24 19:53 | Emergency (ER) | payer MEDICAID, SELFPAY ==
[2022-04-24 19:56] VITALS: BP 135/62; PULSE 92; RESP 17; TEMP 37.5; O2SAT 98; BMI 26.6
[2022-04-24 20:11] LABS: MANUAL DIFF FLAG NO
[2022-04-24 20:14] LABS: Basophils Percent Auto 0.4 % (0-2); Eosinophils Percent Auto 0.3 % (0-4); Hematocrit 37.1 % (37.0-47.0); Hemoglobin 12.3 g/dl (12.0-16.0); Imm Gran Abs Auto 0.05 X10*3/uL (0.00-0.03); Imm Gran Pct Auto 0.6 % (0.0-0.4); Lymphocytes Absolute Auto 1.4 X10*3/uL (1.2-4.9); Lymphocytes Percent Auto 17.8 % (20-40); Mean Corpuscular HGB Conc 33.2 g/dl (31.0-35.0); Mean Corpuscular Hemoglobin 29.5 pg (27.0-33.0); Mean Platelet Volume 10.3 fL (9.4-12.3); Monocytes Absolute Auto 1.3 X10*3/uL (0.1-1.2); Monocytes Percent Auto 16.6 % (2-11); Neutrophils Percent Auto 64.3 % (45-73); Platelet Count 165 X10*3/uL (160-400); Red Blood Count 4.17 X10*6/uL (4.20-5.50); Red Cell Distribution Width 12.4 % (11.0-16.0); White Blood Count 7.8 X10*3/uL (4.8-10.8)
[2022-04-24 20:29] LABS: Alanine Aminotransferase 44 U/L (0-31); Alkaline Phosphatase 65 U/L (39-117); Anion Gap 11 (12-20); Aspartate Amino Transferase 29 U/L (5-31); Bilirubin Total 0.2 mg/dL (0.0-1.0); Blood Urea Nitrogen 11 mg/dL (9-16); Calcium 8.9 mg/dL (8.4-10.2); Carbon Dioxide 24 mmol/L (22-29); Chloride 107 mmol/L (96-108); Creatinine Clr Calc Pharmacy 104.5; Estimated Glomerular Filt Rate > 60; Glucose Random 100 mg/dL (60-115); Potassium 3.7 mmol/L (3.3-5.1); Sodium 138 mmol/L (135-145); Total Protein 6.7 g/dL (6.5-8.0)
[2022-04-24 20:52] LABS: Influenza A PCR NEGATIVE (Negative); Influenza B PCR NEGATIVE (Negative); Resp Syncy Virus RNA Qual PCR NEGATIVE (Negative); SARS COV2 PCR INHOUSE POSITIVE (Negative)
--- NOTE | 2022-04-24 22:10 | ED.URI ---
HPI - URI/Sore Throat General Chief Complaint: Nausea/Vomiting/Diarrhea Stated Complaint: , feeling sick, headache Time Seen by Provider: 04/24/22 22:08 Source: patient Mode of arrival: ambulatory Limitations: no limitations History of Present Illness HPI Narrative: Patient is 7 weeks feeling headache cold symptoms since yesterday no other family member sick no shortness of breath slight dry cough not vaccinated against COVID Related Data Previous Rx's Medication Instructions Recorded oseltamivir 75 mg capsule 75 mg PO BID 5 days #10 caps 09/30/21 cefuroxime axetil 250 mg tablet 250 mg PO BID 5 days #10 tabs 02/13/22 docusate sodium 100 mg capsule 100 mg PO BID #20 caps 02/13/22 (Colace) phenazopyridine 100 mg tablet 200 mg PO TID 2 days #6 tabs 02/13/22 (Pyridium) sennosides 8.6 mg tablet (senna) 8.6 mg PO BEDTIME #14 tabs 02/13/22 Allergies Allergy/AdvReac Type Severity Reaction Status Date / Time No Known Allergies Allergy Verified 02/13/22 18:43 [No Known Allergies*] Review of Systems Review of Systems: Yes all other systems are reviewed and are negative PMFSH Past Medical History Medical History No known health problems Social History Social History Advance Directives: No Advance Directives Information Provided: No Physical Exam Vital Signs: Vital Signs: Last Vital Signs Temp 98.1 F 04/24/22 22:17 Pulse 84 04/24/22 22:17 Resp 17 04/24/22 19:56 BP 129/51 L 04/24/22 22:17 Pulse Ox 99 04/24/22 22:17 O2 Del Method 04/24/22 22:17 BMI result Body Mass Index 26.6 Appearance: Alert. Oriented X3. No acute distress. Eyes: No pallor or icterus ENT: Pharynx normal. Oral Mucosa moist Neck: Normal inspection. Neck supple. CVS: Normal heart rate and rhythm. Pulses normal. Respiratory: No respiratory distress. Equal air entry bilateral, no wheezing/rales/rhonchi Abdomen: Soft and nontender. Bowel sounds are present, no mass palpable, no CVA tenderness Skin: Skin warm and dry. Normal skin color. Normal skin turgor. Extremities: No lower extremity edema. No calf tenderness Neuro: Oriented X 3. MDM - URI/Sore Throat MDM Narrative Medical decision making narrative: Patient COVID positive saturating 98-99% at room air lungs are clear discharge patient home advise COVID precautions Lab Data Attestation: I reviewed the patient's lab results. Result diagrams: 04/24/22 20:03 04/24/22 20:03 Labs: Lab Results 04/24/22 04/24/22 04/24/22 Range/Units 20:03 20:03 20:03 WBC 7.8 (4.8-10.8) X10*3/uL RBC 4.17 L (4.20-5.50) X10*6/uL Hgb 12.3 (12.0-16.0) g/dl Hct 37.1 (37.0-47.0) % MCV 89.0 (80.0-98.0) fL MCH 29.5 (27.0-33.0) pg MCHC 33.2 (31.0-35.0) g/dl RDW 12.4 (11.0-16.0) % Plt Count 165 (160-400) X10*3/uL MPV 10.3 (9.4-12.3) fL Immature Gran % (Auto) 0.6 H (0.0-0.4) % Neut % (Auto) 64.3 (45-73) % Lymph % (Auto) 17.8 L (20-40) % [place] % (Auto) 16.6 H (2-11) % Eos % (Auto) 0.3 (0-4) % Baso % (Auto) 0.4 (0-2) % Lymph # (Auto) 1.4 (1.2-4.9) X10*3/uL [place] # (Auto) 1.3 H (0.1-1.2) X10*3/uL Eos # (Auto) 0.0 (0.0-0.4) X10*3/uL Baso # (Auto) 0.0 (0.0-0.2) X10*3/uL Abs Immat Gran (auto) 0.05 H (0.00-0.03) X10*3/uL Absolute Neuts (auto) 5.0 (2.0-8.3) x10*3/uL Absolute Nucleated RBC 0.000 (0.0-0.012) X10*3/uL Nucleated RBC % (auto) 0.0 (0.0-0.2) /100WBC Sodium 138 (135-145) mmol/L Potassium 3.7 (3.3-5.1) mmol/L Chloride 107 (96-108) mmol/L Carbon Dioxide 24 (22-29) mmol/L Anion Gap 11 L (12-20) BUN 11 (9-16) mg/dL Creatinine 0.69 (0.5-1.4) mg/dL Estim Creat Clear Calc 104.5 Estimated GFR > 60 Random Glucose 100 (60-115) mg/dL Calcium 8.9 (8.4-10.2) mg/dL Total Bilirubin 0.2 (0.0-1.0) mg/dL AST 29 (5-31) U/L ALT 44 H (0-31) U/L Alkaline Phosphatase 65 (39-117) U/L Total Protein 6.7 (6.5-8.0) g/dL Albumin 4.0 (3.5-5.0) g/dL Influenza Type A (PCR) NEGATIVE (Negative) Influenza Type B (PCR) NEGATIVE (Negative) RSV RNA Qual (PCR) NEGATIVE (Negative) SARS-CoV-2 RNA (RT-PCR) POSITIVE A (Negative) Discharge Plan Discharge Clinical Impression: COVID-19 Patient Disposition: Home, Self-Care Instructions: COVID-19 (Coronavirus Disease 2019) (ED) Additional Instructions: Keep hydrated Social distancing advised Report to the ER if increased shortness of breath Tylenol for pain and fever Prescriptions: No Action oseltamivir 75 mg capsule 75 mg PO BID 5 Days Qty: 10 0RF cefuroxime axetil 250 mg tablet 250 mg PO BID 5 Days Qty: 10 0RF phenazopyridine [Pyridium] 100 mg tablet 200 mg PO TID 2 Days Qty: 6 0RF sennosides [senna] 8.6 mg tablet 8.6 mg PO BEDTIME Qty: 14 0RF docusate sodium [Colace] 100 mg capsule 100 mg PO BID Qty: 20 0RF Interventions: ED Discharge Assessment Last Done: 04/24/22 22:34 Discharge Date/Time: 04/24/22 22:35
[2022-04-24 22:17] VITALS: BP 129/51; PULSE 84; TEMP 36.7; O2SAT 99
== END 2022-04-24 22:35 | disposition home or self-care (01) ==
PROVIDERS: Emergency Provider Internal Medicine
DX: O98.511 Other viral diseases complicating pregnancy, first trimester (principal); U07.1 COVID-19; Z3A.01 Less than 8 weeks gestation of pregnancy; Z79.899 Other long term (current) drug therapy
CPT/HCPCS: 0241U; 36415; 80053; 85025; 99283

== ENCOUNTER 2022-05-21 19:16 | Emergency (ER) | payer MEDICAID, SELFPAY ==
--- NOTE | ~2022-05-21 | US_ITS ---
EXAMINATION: US OBSTETRICAL ULTRASOUND CLINICAL INFORMATION: 10 weeks with pelvic pain COMPARISON: 03/28/2022. LMP: 03/11/2022. Gestational age by maternal dates is 10 weeks 1 day. Estimated date of delivery by maternal dates is 12/16/2022. TECHNIQUE: Ultrasound of the maternal pelvis is performed using transabdominal transducer. M-mode Doppler is also performed. FINDINGS: There is a single intrauterine gestational sac with visible yolk sac, embryo/fetus, and cardiac activity. There is no significant subchorionic hemorrhage or hematoma. HR: 163 beats per minute. CRL (crown rump length): 4.15 cm (11 weeks 1 day +/- 4 days). MIREILLE (estimated date of delivery): 12/09/2022 +/- 4 days. MATERNAL ADNEXA: The right maternal ovary measures 1.4 x 1.2 x 1.4 cm. The left maternal ovary measures 2.2 x 2.0 x 2.0 cm. There is a corpus luteal cyst measuring 1.0 x 1.0 x 1.2 cm. There is no significant maternal adnexal mass. No maternal pelvic ascites. US/US OB <= 14 weeks fetus IMPRESSION: 1. Single intrauterine gestation with ultrasound gestational age of 11 weeks 1 day +/- 4 days. 2. Estimated date of delivery is 12/09/2022 +/- 4 days. 3. No maternal adnexal mass or pelvic ascites.
[2022-05-21 19:28] VITALS: BP 143/69; PULSE 89; RESP 16; TEMP 36.6; O2SAT 100; BMI 27.4
--- NOTE | 2022-05-21 19:28 | ED_ITS ---
HPI - General Chief complaint: Abdominal Pain Stated complaint: Abdominal Pain/ 10 Weeks Time Seen by Provider: 05/22/22 02:29 Source: patient Mode of arrival: ambulatory Limitations: no limitations History of Present Illness HPI Narrative: 32yoF who is [id number] who is currently 10 weeks being followed by [facility] had a confirmed IUP with ultrasound when she was 5 weeks based due date December 16, 2021 presenting to the ED with suprapubic abdominal pain with urinary frequency/urgency/dysuria for the past few days worse today.? Reports associated lower back pain/flank pain right-sided..? Reports she was on antibiotics approximately 3 weeks ago for possible UTI alt akhil she is unsure if her UTIs back.? She denies any vaginal bleeding any fevers or any other symptoms complaints or concerns at this time Related Data Previous Rx's Medication Instructions Recorded oseltamivir 75 mg capsule 75 mg PO BID 5 days #10 caps 09/30/21 cefuroxime axetil 250 mg tablet 250 mg PO BID 5 days #10 tabs 02/13/22 docusate sodium 100 mg capsule 100 mg PO BID #20 caps 02/13/22 (Colace) phenazopyridine 100 mg tablet 200 mg PO TID 2 days #6 tabs 02/13/22 (Pyridium) sennosides 8.6 mg tablet (senna) 8.6 mg PO BEDTIME #14 tabs 02/13/22 Allergies Allergy/AdvReac Type Severity Reaction Status Date / Time No Known Allergies Allergy Verified 02/13/22 18:43 [No Known Allergies*] Review of Systems Review of Systems: Constitutional : No Fever, No Chills ENT/Mouth : No sore throat, No Rhinorrhea Eyes: No Eye Pain, No Redness Cardiovascular : No Chest Pain, No SOB Respiratory : No Cough, No Sputum, No Wheezing Gastrointestinal : No Nausea, No Vomiting, No Diarrhea, + abdominal pain, Genitourinary : No irregular bleeding, + Dysuria, + Urinary Frequency, + flank pain, No pelvic pain Musculoskeletal : No Myalgias Skin : No rash Neuro : No Weakness, No Headache Psych : No Anxiety/Panic, No Depression Heme/Lymph: No bruising, No Lymphadenopathy Endocrine : No Polyuria, No Polydipsia Yes all other systems are reviewed and are negative [facility] Past Medical History Attestation statement: The following information was validated with the patient. Source: old records reviewed and nursing notes reviewed Medical History No known health problems Social History Social History Advance Directives: No Advance Directives Information Provided: No Physical Exam Vital Signs: Vital Signs: Last Vital Signs Temp 97.8 F 05/21/22 19:28 Pulse 89 05/21/22 19:28 Resp 16 05/21/22 19:28 BP 143/69 H 05/21/22 19:28 Pulse Ox 100 05/21/22 19:28 O2 Del Method 05/21/22 19:28 BMI result Body Mass Index 27.4 vital signs have been reviewed as normal and appeared to be correct. Blood pressure normal. Heart rate normal. Respiration rate normal. Temperature normal. Oxygen saturation normal. Appearance: Alert. Oriented X3. No acute distress. Head: Normal external exam. Normocephalic. Atraumatic. Eyes: PERRLA. EOMI. Conjunctiva and sclera normal. Eyelids normal. ENT: Pharynx normal. Uvula midline. Moist mucous membranes. No lesions/ulcerations or masses noted on the tongue. Normal voice. No trismus noted. No drooling noted. No muffled voice noted. Neck: Normal inspection. Neck supple. FROM. No adenopathy. Thyroid Normal. No tracheal deviation noted. No crepitus is noted. No meningeal signs. No neck mass noted. No signs of trauma noted. CVS: Normal heart rate and rhythm. Heart sound normal. Pulses normal throughout. No murmurs/rales/gallops. Respiratory: No respiratory distress. Painless inspiration. Breath sounds normal. No wheezes/rales/rhonchi noted. Chest nontender. No crepitus is noted. No accessory muscle usage noted or decreased air movement noted. No signs of trauma. Abdomen: Soft and nontender. Nondistended. No guarding. No rigidity. Bowel s ounds normal in all 4 quadrants. No distention noted. No organomegaly noted. No visible injury noted. No rebound tenderness. Negative Rovsing sign. Negative obturator's sign. Negative psoas sign. Negative Villafuerte sign. Back: No CVA tenderness. Full range of motion noted. Nontender. No signs of trauma. Patient neuro intact bilaterally and distally on all 4 extremities. Patient's reflexes intact bilaterally and distally on all 4 extremities. No rashes/lesion/induration/fluctuance or signs of infection noted. Skin: Skin warm and dry. Normal skin color. Normal skin turgor. No rashes /lesions/lacerations noted. Extremities: No lower extremity edema. No calf tenderness is noted. Ex tremities exhibit normal range of motion and nontender. Neuro: Oriented X 3. No motor deficit. No sensory deficit. Reflexes normal. Normal steady gait. No focal neuro deficits noted. CN's II-XII intact bilaterally? Vascular: + radial pulses/+ 2 distal pedal pulses/+2 dorsalis pedis b/l. Normal cap refill. No cyanosis noted to upper extremity nails and lower extremity toes nails. Course Course Course Narrative: RME-19:30PM - 32yoF who is [id number] who is currently 10 weeks being followed by [facility] had a confirmed IUP with ultrasound when she was 5 weeks based due date December 16, 2021 presenting to the ED with suprapubic abdominal pain with urinary frequency/urgency/dysuria for the past few days worse today. Reports associated lower back pain/flank pain right-sided.. Reports she was on antibiotics approximately 3 weeks ago for possible UTI although she is unsure if her UTIs back. She denies any vaginal bleeding any fevers or any other symptoms complaints or concerns at this time Patient was eating a burger while she was waiting to be called. I explained to her that she should not be eating and she is having abdominal pain. Plan: Labs, UA, ultrasound. Patient will be sent back to the waiting room to be evaluated in the ED. Reevaluation(s) Reevaluation #1: Patient had labs and all the patient's labs were normal. Her serum quant appropriately elevated. UA revealed moderate leukocytes although she had 6-10 epithelial cells therefore dirty catch. She was negative for COVID/RSV/flu. Patient had a ultrasound which revealed a single intrauterine gestation with ultrasound the station at age of 11 weeks and 1 day with estimated due date of 12/09/2022 +/-4 days no other acute processes noted. Although patient eloped before we can give her her results. I did try to contact the patient although she did not Answer. Medical Decision Making Lab Data MDM Lab Attestation statement: I reviewed the patient's lab results. Result Diagrams: 05/21/22 19:59 05/21/22 19:59 Labs: Lab Results 05/21/22 05/21/22 05/21/22 Range/Units 19:59 19:59 19:59 WBC 8.8 (4.8-10.8) X10*3/uL RBC 4.11 L (4.20-5.50) X10*6/uL Hgb 12.5 (12.0-16.0) g/dl Hct 36.6 L (37.0-47.0) % MCV 89.1 (80.0-98.0) fL MCH 30.4 (27.0-33.0) pg MCHC 34.2 (31.0-35.0) g/dl RDW 12.4 (11.0-16.0) % Plt Count 192 (160-400) X10*3/uL MPV 10.9 (9.4-12.3) fL Immature Gran % (Auto) 0.5 H (0.0-0.4) % Neut % (Auto) 58.8 (45-73) % Lymph % (Auto) 31.2 (20-40) % [place] % (Auto) 8.5 (2-11) % Eos % (Auto) 0.8 (0-4) % Baso % (Auto) 0.2 (0-2) % Lymph # (Auto) 2.8 (1.2-4.9) X10*3/uL [place] # (Auto) 0.8 (0.1-1.2) X10*3/uL Eos # (Auto) 0.1 (0.0-0.4) X10*3/uL Baso # (Auto) 0.0 (0.0-0.2) X10*3/uL Abs Immat Gran (auto) 0.04 H (0.00-0.03) X10*3/uL Absolute Neuts (auto) 5.2 (2.0-8.3) x10*3/uL Absolute Nucleated RBC 0.000 (0.0-0.012) X10*3/uL Nucleated RBC % (auto) 0.0 (0.0-0.2) /100WBC PT 11.6 (10.0-13.1) SEC INR 1.0 (0.9-1.1) Sodium 138 (135-145) mmol/L Potassium 3.3 (3.3-5.1) mmol/L Chloride 105 (96-108) mmol/L Carbon Dioxide 24 (22-29) mmol/L Anion Gap 12 (12-20) BUN 11 (9-16) mg/dL Creatinine 0.62 (0.5-1.4) mg/dL Estim Creat Clear Calc 117.7 Estimated GFR > 60 Random Glucose 98 (60-115) mg/dL Calcium 9.3 (8.4-10.2) mg/dL Magnesium 1.9 (1.6-2.6) mg/dL Total Bilirubin 0.2 (0.0-1.0) mg/dL AST 26 (5-31) U/L ALT 43 H (0-31) U/L Alkaline Phosphatase 59 (39-117) U/L Total Protein 6.9 (6.5-8.0) g/dL Albumin 4.0 (3.5-5.0) g/dL Lipase 28 (8-78) U/L Beta HCG, Quant 82781 mIU/mL Urine Color Urine Appearance Urine pH (5.0-9.0) Ur Specific [place] (1.005-1.025) Urine Protein (Neg-Trace) mg/dL Urine Glucose (UA) (Negative) mg/dL Urine Ketones (Negative) mg/dL Urine Blood (Negative) Urine Nitrite (Negative) Ur Leukocyte Esterase (Negative) Urine RBC (0-2) /HPF Urine WBC (0-5) /HPF Ur Squamous Epith Cells (0-2) /HPF Urine Bacteria (None Seen) Hyaline Casts (0-2) /LPF Urine Test (NEGATIVE) Influenza Type A (PCR) (Negative) Influenza Type B (PCR) (Negative) RSV RNA Qual (PCR) (Negative) SARS-CoV-2 RNA (RT-PCR) (Negative) Blood Type 05/21/22 05/21/22 05/21/22 Range/Units 19:59 19:59 19:59 WBC (4.8-10.8) X10*3/uL RBC (4.20-5.50) X10*6/uL Hgb (12.0-16.0) g/dl Hct (37.0-47.0) % MCV (80.0-98.0) fL MCH (27.0-33.0) pg MCHC (31.0-35.0) g/dl RDW (11.0-16.0) % Plt Count (160-400) X10*3/uL MPV (9.4-12.3) fL Immature Gran % (Auto) (0.0-0.4) % Neut % (Auto) (45-73) % Lymph % (Auto) (20-40) % [place] % (Auto) (2-11) % Eos % (Auto) (0-4) % Baso % (Auto) (0-2) % Lymph # (Auto) (1.2-4.9) X10*3/uL [place] # (Auto) (0.1-1.2) X10*3/uL Eos # (Auto) (0.0-0.4) X10*3/uL Baso # (Auto) (0.0-0.2) X10*3/uL Abs Immat Gran (auto) (0.00-0.03) X10*3/uL Absolute Neuts (auto) (2.0-8.3) x10*3/uL Absolute Nucleated RBC (0.0-0.012) X10*3/uL Nucleated RBC % (auto) (0.0-0.2) /100WBC PT (10.0-13.1) SEC INR (0.9-1.1) Sodium (135-145) mmol/L Potassium (3.3-5.1) mmol/L Chloride (96-108) mmol/L Carbon Dioxide (22-29) mmol/L Anion Gap (12-20) BUN (9-16) mg/dL Creatinine (0.5-1.4) mg/dL Estim Creat Clear Calc Estimated GFR Random Glucose (60-115) mg/dL Calcium (8.4-10.2) mg/dL Magnesium (1.6-2.6) mg/dL Total Bilirubin (0.0-1.0) mg/dL AST (5-31) U/L ALT (0-31) U/L Alkaline Phosphatase (39-117) U/L Total Protein (6.5-8.0) g/dL Albumin (3.5-5.0) g/dL Lipase (8-78) U/L Beta HCG, Quant mIU/mL Urine Color Yellow Urine Appearance Cloudy Urine pH 5.0 (5.0-9.0) Ur Specific [place] 1.025 (1.005-1.025) Urine Protein Negative (Neg-Trace) mg/dL Urine Glucose (UA) Negative (Negative) mg/dL Urine Ketones Negative (Negative) mg/dL Urine Blood Negative (Negative) Urine Nitrite Negative (Negative) Ur Leukocyte Esterase Moderate (2+) H (Negative) Urine RBC 0-2 (0-2) /HPF Urine WBC 11-20 H (0-5) /HPF Ur Squamous Epith Cells 6-10 (0-2) /HPF Urine Bacteria 3+ (None Seen) Hyaline Casts 0-2 (0-2) /LPF Urine Test (NEGATIVE) Influenza Type A (PCR) NEGATIVE (Negative) Influenza Type B (PCR) NEGATIVE (Negative) RSV RNA Qual (PCR) NEGATIVE (Negative) SARS-CoV-2 RNA (RT-PCR) NEGATIVE (Negative) Blood Type O Negative 05/21/22 Range/Units 19:59 WBC (4.8-10.8) X10*3/uL RBC (4.20-5.50) X10*6/uL Hgb (12.0-16.0) g/dl Hct (37.0-47.0) % MCV (80.0-98.0) fL MCH (27.0-33.0) pg MCHC (31.0-35.0) g/dl RDW (11.0-16.0) % Plt Count (160-400) X10*3/uL MPV (9.4-12.3) fL Immature Gran % (Auto) (0.0-0.4) % Neut % (Auto) (45-73) % Lymph % (Auto) (20-40) % [place] % (Auto) (2-11) % Eos % (Auto) (0-4) % Baso % (Auto) (0-2) % Lymph # (Auto) (1.2-4.9) X10*3/uL [place] # (Auto) (0.1-1.2) X10*3/uL Eos # (Auto) (0.0-0.4) X10*3/uL Baso # (Auto) (0.0-0.2) X10*3/uL Abs Immat Gran (auto) (0.00-0.03) X10*3/uL Absolute Neuts (auto) (2.0-8.3) x10*3/uL Absolute Nucleated RBC (0.0-0.012) X10*3/uL Nucleated RBC % (auto) (0.0-0.2) /100WBC PT (10.0-13.1) SEC INR (0.9-1.1) Sodium (135-145) mmol/L Potassium (3.3-5.1) mmol/L Chloride (96-108) mmol/L Carbon Dioxide (22-29) mmol/L Anion Gap (12-20) BUN (9-16) mg/dL Creatinine (0.5-1.4) mg/dL Estim Creat Clear Calc Estimated GFR Random Glucose (60-115) mg/dL Calcium (8.4-10.2) mg/dL Magnesium (1.6-2.6) mg/dL Total Bilirubin (0.0-1.0) mg/dL AST (5-31) U/L ALT (0-31) U/L Alkaline Phosphatase (39-117) U/L Total Protein (6.5-8.0) g/dL Albumin (3.5-5.0) g/dL Lipase (8-78) U/L Beta HCG, Quant mIU/mL Urine Color Urine Appearance Urine pH (5.0-9.0) Ur Specific [place] (1.005-1.025) Urine Protein (Neg-Trace) mg/dL Urine Glucose (UA) (Negative) mg/dL Urine Ketones (Negative) mg/dL Urine Blood (Negative) Urine Nitrite (Negative) Ur Leukocyte Esterase (Negative) Urine RBC (0-2) /HPF Urine WBC (0-5) /HPF Ur Squamous Epith Cells (0-2) /HPF Urine Bacteria (None Seen) Hyaline Casts (0-2) /LPF Urine Test POSITIVE H (NEGATIVE) Influenza Type A (PCR) (Negative) Influenza Type B (PCR) (Negative) RSV RNA Qual (PCR) (Negative) SARS-CoV-2 RNA (RT-PCR) (Negative) Blood Type Independent Interpretation Interpretation: ultrasound FINDINGS: There is a single intrauterine gestational sac with visible yolk sac, embryo/fetus, and cardiac activity.? There is no significant subchorionic hemorrhage or hematoma. HR:? 163 beats per minute. CRL (crown rump length): ? 4.15 cm (11 weeks 1 day +/- 4 days). MIRE[place] (estimated date of delivery):? 12/09/2022 +/- 4 days. ? MATERNAL ADNEXA: ? ? The right maternal ovary measures 1.4 x 1.2 x 1.4 cm. The left maternal ovary measures 2.2 x 2.0 x 2.0 cm.? There is a corpus luteal cyst measuring 1.0 x 1.0 x 1.2 cm. There is no significant maternal adnexal mass.? No maternal pelvic ascites. US/US OB <= 14 weeks fetus IMPRESSION: 1. Single intrauterine gestation with ultrasound gestational age of? 11 weeks 1 day +/- 4 days. 2. Estimated date of delivery is 12/09/2022 +/- 4 days. 3. No maternal adnexal mass or pelvic ascites. Discharge Plan Discharge Clinical Impression: Abdominal pain in Patient Disposition: Elopement Prescriptions: No Action oseltamivir 75 mg capsule 75 mg PO BID 5 Days Qty: 10 0RF cefuroxime axetil 250 mg tablet 250 mg PO BID 5 Days Qty: 10 0RF phenazopyridine [Pyridium] 100 mg tablet 200 mg PO TID 2 Days Qty: 6 0RF sennosides [senna] 8.6 mg tablet 8.6 mg PO BEDTIME Qty: 14 0RF docusate sodium [Colace] 100 mg capsule 100 mg PO BID Qty: 20 0RF Discharge Date/Time: 05/22/22 02:36
--- NOTE | 2022-05-21 19:45 | PC.NURSE ---
per alyce pt is to go to [facility] not [facility]
--- OUTSIDE RECORDS SUMMARY | 2022-05-21 19:57 | XMS_ITS | Continuity of Care Document ---
:1990 Author Organization [facility] Address [address] [place] [id number]- Care Team Providers Name Role Phone Maribell Rodriguez MD Primary Care Phys[place] [facility] [place]22 - 04/19/[address] [address] Discharge Disposition: A-D/C Home Attending Physician: Benito SINGH, August Admitting Physician: Benito SINGH, August Referring Physician: Benito SINGH, August Allergies, Adverse Reactions, Alerts No Known Allergies Medications Flagyl Tablet 500 mg, By Mouth, Every 12 hours, # 14 tablet, Refills 0, Maintenance, 02/24/22 14:06:00 EDT Start Date: 02/24/22 Stop Date: 03/03/22 Status: OrderedPrenatal 19 ([place]) oral tablet 1 tablet, By Mouth, Daily, # 90 tablet, 3 Refills, Maintenance, 04/19/22 14:39:00 EST, [id number], Partial fill upon patient request if the prescription is for a schedule II opioid drug., 1 tablet By Mouth Daily, 158, cm, 04/19/22 10:17:00 EST... Start Date: 04/19/22 Status: Ordered Procedures Procedure Date Related Diagnosis Body Site Status Appendectomy Completed Vital Signs Most recent to oldest [Reference Range]: 1 2 Weight 84.8 kg 67.6 kg (04/19/22 11:24 AM) (04/19/22 10:44 AM) Oxygen Saturation [94-100 %] 100 % 100 % (04/19/22 11:24 AM) (04/19/22 10:44 AM) Pulse Rate [55-90 bpm] 97 bpm 75 bpm *H* (04/19/22 10:44 AM) (04/19/22 11:24 AM) Blood Pressure [90-138/55-84 mm Hg] 137/79 mm Hg 123/ 72 mm Hg (04/19/22 11:24 AM) (04/19/22 10:44 AM) Respiratory Rate [16-30 br/min] 20 br/min 16 br/mi n (04/19/22 11:24 AM) (04/19/22 10:44 AM) Temperature [96.8-100.4 DegF] 97.2 DegF 98.2 DegF (04/19/22 11:24 AM) (04/19/22 10:44 AM) Mode of Delivery (Oxygen) Room air Room air (04/19/22 11:24 AM) (04/19/22 10:44 AM) Blood pressure sites Arm, left Arm, left (04/19/22 11:24 AM) (04/19/22 10:44 AM) Temperature Route Oral Oral (04/19/22:24 AM) (04/19/22 10:44 AM) Dry Weight 84.8 kg 67.6 kg (04/19/22 11:24 AM) (04/19/22 10:44 AM) Weight Obtained Via Standing scale Standing scale (04/19/22 11:24 AM) (04/19/22 10:44 AM) Dry Weight Obtained Via Standing scale Standing scale (04/19/22 11:24 AM) (04/19/22 10:44 AM) Social History Social History Type Response Smoking Status Never (less than 100 in life time) entered on: 04/19/22 Sex Note Event Display: PDC Limited Viability Event Display: PDC Limited Viability Authored Date: [id number] OBSTETRICS REPORT PATIENT INFO: CMRN: [id number] BMRN: [id number] : [birth year] (32 yrs)(F) Name: RAÚL RAYMUNDO Visit Date: 04/19/2022 01:50 pm PERFORMED BY: Performed By: Linnette Rodirges RDMS Attending: Kajal Carlson MD Referred By: Zunilda Thomas for Michelle Oliver MD [facility] INDICATIONS: viability O36.80_0 EVALUATION: Num Of Fetuses: 1 Gest. Sac: Seen in the intrauterine cavity Yolk Sac: Visualized Pole: Visualized Heart Rate(bpm): 112 Cardiac Activity: Present BIOMETRY: GS: 10 mm G.Age: 5w 5d MIREILLE: 12/15/22 CRL: 4.4 mm G.Age: 6w 1d MIREILLE: 12/12/22 OB HISTORY: : 4 Term: 2 Livin GESTATIONAL AGE: LMP: 5w 4d Date: 03/11/22 MIREILLE: 12/16/22 Best: 5w 4d Det. By: LMP (03/11/22) MIREILLE: 12/16/22 CERVIX UTERUS ADNEXA: Cervix Appears closed Left Ovary Simple cyst = 1.8 x 1.4cm Right Ovary Appears normal Cul De Sac No fluid seen Comment Vaginal scanning was done. COMMENTS: Viable intrauterine seen. The fetus is measuring appropriate for gestational age. Kajal Carlson MD Electronically Signed Final Report 04/19/2022 02:50 pm Event Display: PDC Limited Viability Authored Date: Please click on pdf link to open Avis Bob V: PERFORM Event Display: Discharge/Transfer Note Hospital Authored Date: Nursing Discharge Note Entered On: 04/19/2022 14:30 EST Performed On: 04/19/2022 14:30 EST by Avis Roche V Nursing Discharge Note 2 Discharge Time : 04/19/2022 14:30 EST Discharge Level of Care at Discharge : Home/Jail/Foster Care Patient Left Unit Via : Ambulatory Patient Accompanied Off Unit with : Significant other DC Instructions Provided & Signed by Pt : Yes Patient Understands D/C Instructions : Yes Patient Instructions Discharge Signed : Yes Did Pt have Specialty Bed or Wound Vac : No Avis Roche V - 04/19/2022 14:30 ESTAvis Roche V: PERFORM Event Display: Patient Education/Instruction Authored Date: Inpatient Adult Discharge Instructions [address] [address] Name: RAÚL RAYMUNDO : 1990 Visit: 04/19/2022 10:34:00 Current Date: 04/19/2022 14:10 Account: [id number] Inpatient Adult Discharge Instructions We would like to thank you for allowing us to assist you with your healthcare needs. The following includes patient education materials and information regarding your injury/illness. Our entire staff strives to provide an excellent experience for our patients and their families. PLEASE ENSURE YOU FOLLOW-UP PER THE INSTRUCTIONS BELOW! ?? YOUR OPINION IS IMPORTANT TO US! Please complete the survey you may receive by mail or email. Your feedback will be used to make improvements to the healthcare experiences of our patients and their families. Surveys are administered by [employer] ?? If further treatment with your primary care physician or another doctor is recommended, it is important for you to keep the appointment. Call your primary care physician or return to the Emergency Department immediately if your condition worsens, fails to improve, or new symptoms develop. If you need to find a doctor, you can call [facility] for a referral at [phone] or toll free at [phone].com ([phone]) or log in to [email or web address].. ?? You can view and manage your care through the patient portal or by using a health care tayler of your choosing. [employer] is a website that allows you to securely view your medical information including your hospital discharge summary, office visit summaries, medications and follow-up visits. You can also request appointments, renew medications, and request access to your medical information using a health care tayler of your choosing, or just ask a question. You can enroll at [email or web address] or register during your next office visit. You have been discharged from [facility], Patient Care Unit: WETU1. If you have any questions regarding these instructions after you leave, please call us and we will be happy to assist you. [facility] Your Care Team Attending Physician Benito SINGH, August Tests Performed Below is a partial list of the tests performed during your hospitalization. You may have had other tests and procedures not included in this list. Please discuss all test results with your provider. Beta HCG Serum (Females Only) Chlamydia/N. Gonorrhoeae TMA (NAAT)?-- Results Pending -- Complete Urinalysis?-- Results Pending -- Type and Screen Urine Culture?-- Results Pending -- Vaginosis Vaginitis Panel (BV, CV/TV)?-- Results Pending -- ? You will be contacted within 72 hours with your results. Primary Care Provider Jennifer SINGH, Maribell Husain Advance Directive Health Care Proxy on File No No qualifying data available. Discharge Vitals Temperature: 97.2 DegF Weight: 84.8 kg Pulse Rate:??97 bpm??High ?? Respiratory Rate: 20 br/min ?? Systolic Blood Pressure: 137 mm Hg ?? Diastolic Blood Pressure: 79 mm Hg ?? Oxygen Saturation: 100 % ?? Studies Pending All tests and labs ordered during this hospital stay have been completed unless listed below. Pleasediscuss all pending results with your provider listed above in these instructions. ?? Chlamydia/N. Gonorrhoeae TMA (NAAT) Complete Urinalysis Urine Culture Vaginosis Vaginitis Panel (BV, CV/TV) What to do next Instructions From Your Doctor Discharge Orders Discharge Medications RAÚL RAYMUNDO :1990 Visit Date:04/19/2022 Medications: Please continue your medications until treatment is completed or stopped by your provider. Medications not listed below should be discontinued. Discuss any questions related to medications with your provider. What How Much When Instructions Next Dose Unchanged Metronidazole (Flagyl Tablet) 500 Milligram Oral Every 12 hours Duration: 7 Days Test Results Below is a partial list of the most recent Laboratory test results done prior to this discharge. You may have had other tests and procedures not included in this list. Please discuss all test results with your provider. RHIG Available - IS (04/19/2022) RHIG LOT # - [id number] (04/19/2022) Beta HCG Serum (Females Only) (04/19/2022) ???Blood - 9959 mIU/mL Type and Screen (04/19/2022) ???Blood Type - O Negative???Antibody Screen - Negative Allergies (NKA means No Known Allergies) NKA Problems Active Problems??(1) ?? Education Materials Below is the list of Educational Leaflet Providered with your Discharge Instructions. Adapting to : First Trimester?? Valuables and Belongings I fully understand and agree that [facility] accepts no responsibility for all my personal property including clothing, toilet articles, radios, jewelry, dentures, hearing aids, rings, money, or any other property that is in my possession or is brought to me after admission. I understand certain valuables may be placed in a hospital safe for a short period of time. I understand that the hospital is not liable for loss or damage due to accident, fire, or other natural occurrence while said property is in the safe. I accept full responsibility for any personal property that I keep with me, and will not hold the hospital responsible in case of loss or disappearance. I acknowledge that i have been encouraged to send valuables and belongings home. ? Other Discharge Information ? Pulmonary Rehab Status?? Pulmonary Rehab Discharge Status?? Respiratory Rate: 20 br/min ? Common Emergency Awareness Tips IS IT A STROKE? Act FAST and Check for these signs: FACE Does the face look uneven? ARM Does one arm drift down? SPEECH Does their speech sound strange? TIME Call at any sign of stroke ?? Heart Attack Signs Chest discomfort: Most heart attacks involve discomfort in the center of the chest and lasts more than a few minutes, or goes away and comes back. It can feel like uncomfortable pressure, squeezing, fullness or pain. Discomfort in upper body: Symptoms can include pain or discomfort in one or both arms, back, neck, jaw or stomach. Shortness of breath: With or without discomfort. Other signs: Breaking out in a cold sweat, nausea, or lightheaded. Remember, MINUTES DO MATTER. If you experience any of these heart attack warning signs, call to get immediate medical attention! ?? Smoking can increase your chances of developing chronic health problems and can cause harmful effects to other family members in your house. If you smoke, you are strongly encouraged to quit. Please call [facility] Link at [phone] or [phone].com ([phone]) or log in to [email or web address] for referrals to smoking cessation programs. ?? The National Suicide Prevention Hotline is available 26/12 if you or someone you know needs to find areason to keep living. By calling 6-264-814-[employer] (1738) you'll be connected to a skilled, trained counselor at a crisis center in your area. INPATIENT DISCHARGE INSTRUCTIONS SIGNATURE PAGE BREANNE RAÚL Location:[facility] Registration Date and Time:04/19/2022 10:34 EST Primary Care Physician: Maribell Rodriguez MD, I RAÚL RAYMUNDO, have received the above patient education materials/instructions and have verbalized understanding. If ambulance or transport services are being used I further acknowledge being given a choice of service. ?? If you need to contact me, please call me at this number: . Patient/Emblem Maker Name: Patient/Emblem Maker Signature: Relationship to Patient: Witness Name/Signature: Date: Avis Roche V: PERFORM Event Display: Patient Education/Instruction Authored Date: [id number] [place] [address] Name: RAÚL RAYMUNDO : 1990 Visit: 04/19/2022 10:34:00 Current Date: 04/19/2022 14:09 Account: [id number] Inpatient Adult Discharge Instructions We would like to thank you for allowing us to assist you with your healthcare needs. The following includes patient education materials and information regarding your injury/illness. Our entire staff strives to provide an excellent experience for our patients and their families. PLEASE ENSURE YOU FOLLOW-UP PER THE INSTRUCTIONS BELOW! ?? YOUR OPINION IS IMPORTANT TO US! Please complete the survey you may receive by mail or email. Your feedback will be used to make improvements to the healthcare experiences of our patients and their families. Surveys are administered by [employer] ?? If further treatment with your primary care physician or another doctor is recommended, it is important for you to keep the appointment. Call your primary care physician or return to the Emergency Department immediately if your condition worsens, fails to improve, or new symptoms develop. If you need to find a doctor, you can call [facility] for a referral at [phone] or toll free at [phone].com ([phone]) or log in to [email or web address].. ?? You can view and manage your care through the patient portal or by using a health care tayler of your choosing. [employer] is a website that allows you to securely view your medical information including your hospital discharge summary, office visit summaries, medications and follow-up visits. You can also request appointments, renew medications, and request access to your medical information using a health care tayler of your choosing, or just ask a question. You can enroll at [email or web address] or register during your next office visit. You have been discharged from [facility], Patient Care Unit: WETU1. If you have any questions regarding these instructions after you leave, please call us and we will be happy to assist you. [facility] Your Care Team Attending Physician Benito SINGH, August Tests Performed Below is a partial list of the tests performed during your hospitalization. You may have had other tests and procedures not included in this list. Please discuss all test results with your provider. Beta HCG Serum (Females Only) Chlamydia/N. Gonorrhoeae TMA (NAAT)?-- Results Pending -- Complete Urinalysis?-- Results Pending -- Type and Screen Urine Culture?-- Results Pending -- Vaginosis Vaginitis Panel (BV, CV/TV)?-- Results Pending -- ? You will be contacted within 72 hours with your results. Primary Care Provider Jennifer SINGH, Maribell Husain Advance Directive Health Care Proxy on File No No qualifying data available. Discharge Vitals Temperature: 97.2 DegF Weight: 84.8 kg Pulse Rate:??97 bpm??High ?? Respiratory Rate: 20 br/min ?? Systolic Blood Pressure: 137 mm Hg ?? Diastolic Blood Pressure: 79 mm Hg ?? Oxygen Saturation: 100 % ?? Studies Pending All tests and labs ordered during this hospital stay have been completed unless listed below. Pleasediscuss all pending results with your provider listed above in these instructions. ?? Chlamydia/N. Gonorrhoeae TMA (NAAT) Complete Urinalysis Urine Culture Vaginosis Vaginitis Panel (BV, CV/TV) What to do next Instructions From Your Doctor Discharge Orders Discharge Medications RAÚL RAYMUNDO :1990 Visit Date:04/19/2022 Medications: Please continue your medications until treatment is completed or stopped by your provider. Medications not listed below should be discontinued. Discuss any questions related to medications with your provider. What How Much When Instructions Next Dose Unchanged Metronidazole (Flagyl Tablet) 500 Milligram Oral Every 12 hours Duration: 7 Days Test Results Below is a partial list of the most recent Laboratory test results done prior to this discharge. You may have had other tests and procedures not included in this list. Please discuss all test results with your provider. RHIG Available - IS (04/19/2022) RHIG LOT # - [id number] (04/19/2022) Beta HCG Serum (Females Only) (04/19/2022) ???Blood - 9959 mIU/mL Type and Screen (04/19/2022) ???Blood Type - O Negative???Antibody Screen - Negative Allergies (NKA means No Known Allergies) NKA Problems Active Problems??(1) ?? Education Materials Below is the list of Educational Leaflet Providered with your Discharge Instructions. Valuables and Belongings I fully understand and agree that [facility] accepts no responsibility for all my personal property including clothing, toilet articles, radios, jewelry, dentures, hearing aids, rings, money, or any other property that is in my possession or is brought to me after admission. I understand certain valuables may be placed in a hospital safe for a short period of time. I understand that the hospital is not liable for loss or damage due to accident, fire, or other natural occurrence while said property is in the safe. I accept full responsibility for any personal property that I keep with me, and will not hold the hospital responsible in case of loss or disappearance. I acknowledge that i have been encouraged to send valuables and belongings home. ? Other Discharge Information ? Pulmonary Rehab Status?? Pulmonary Rehab Discharge Status?? Respiratory Rate: 20 br/min ? Common Emergency Awareness Tips IS IT A STROKE? Act FAST and Check for these signs: FACE Does the face look uneven? ARM Does one arm drift down? SPEECH Does their speech sound strange? TIME Call at any sign of stroke ?? Heart Attack Signs Chest discomfort: Most heart attacks involve discomfort in the center of the chest and lasts more than a few minutes, or goes away and comes back. It can feel like uncomfortable pressure, squeezing, fullness or pain. Discomfort in upper body: Symptoms can include pain or discomfort in one or both arms, back, neck, jaw or stomach. Shortness of breath: With or without discomfort. Other signs: Breaking out in a cold sweat, nausea, or lightheaded. Remember, MINUTES DO MATTER. If you experience any of these heart attack warning signs, call to get immediate medical attention! ?? Smoking can increase your chances of developing chronic health problems and can cause harmful effects to other family members in your house. If you smoke, you are strongly encouraged to quit. Please call [facility] Link at [phone] or [phone].com ([phone]) or log in to [email or web address] for referrals to smoking cessation programs. ?? The National Suicide Prevention Hotline is available 26/12 if you or someone you know needs to find areason to keep living. By calling 2-782-636-[employer] (7180) you'll be connected to a skilled, trained counselor at a crisis center in your area. INPATIENT DISCHARGE INSTRUCTIONS SIGNATURE PAGE RAÚL RAYMUNDO Location:[facility] Registration Date and Time:04/19/2022 10:34 EST Primary Care Physician: Jennifer SINGH, Maribell Husain, I RAÚL RAYMUNDO, have received the above patient education materials/instructions and have verbalized understanding. If ambulance or transport services are being used I further acknowledge being given a choice of service. ?? If you need to contact me, please call me at this number: . Patient/Emblem Maker Name: Patient/Emblem Maker Signature: Relationship to Patient: Witness Name/Signature: Date: Avis Roche V: PERFORM Event Display: Patient Education Leaflets Authored Date: [id number] Adapting to : First Trimester ?? [address] Adapting to : First Trimester As your body adjusts during your first trimester of , you may have to change or limit yourdaily activities. You???ll need more rest. You may also need to use the energy you have more wisely. Your changing body Almost every part of your body is affected as you adapt to . The uterus and cervix will start to soften right away. You may not look very during the first 3 months. But you are likely to have some common signs of early : ??? Nausea ??? Fatigue ??? Frequent urination ??? Mood swings ??? Bloating of the belly ??? Constipation ??? Heartburn ??? Missed or light periods (first trimester bleeding) ??? Nipple or breast tenderness and breast swelling ?? It???s not too late to start good habits What matters most is protecting your baby from this moment on. If you smoke, drink alcohol, or use drugs, now is the time to stop. If you need help, talk with your healthcare provider: ??? Smoking increases the risk of stillbirth??or having a iat-zubso-bnaram baby. If you smoke, quit now. ??? Alcoholand drugs have been linked with miscarriage, defects, intellectual disability, and low weight. Don't drink alcohol or take drugs. ?? Tips to relieve nausea During , nausea can happen at any time of the day, but it may be worse in the morning. To help prevent nausea: ??? Eat small, light meals at frequent intervals. ??? Drink fluids often. ??? Get up slowly. Eat a few unsalted crackers before you get out of bed. ??? Avoid smells that bother you.??? Avoid spicy and fatty foods. ??? Eat an ice pop??in your favorite flavor. ??? Get plenty of rest. ??? Ask your healthcare provider about taking carrie or vitamin B6 for nausea and vomiting. ??? Talk with your healthcare provider if you take vitamins that upset your stomach. ?? Work concerns The end of the first trimester is a good time to discuss working during with your employer. Follow your healthcare provider???s advice if your job needs you to stand for a long time, work with hazardous tools, or even sit at a desk all day. Your workspace, workload, or scheduled hours may need to be adjusted. Perhaps you can change body postures more often or take an extra break. ?? Advice for travel Talk to your healthcare provider first, but the second trimester may be the best time for any travel. You may be advised to avoid certain trips while you???re . Food and water can be concerns in developing countries. Travel by car is a good choice, as you can stop, get out, and stretch. Bring snacks and water along. Fasten the lap belt below your belly, low over your hips. Also be sure to wear the shoulder harness. ?? Intimacy Unless your healthcare provider tells you to, there's no reason to stop having sex while you???re . You or your partner may notice changes in desire. Desire may be less in the first trimester,due to nausea and fatigue. In the second trimester, sex may be very enjoyable. The third trimester can be a challenge comfort-obrien. Try different positions and see what???s best for you both. ?? Last Reviewed Date: 2019 ?? 7279-3038 [employer]. All rights reserved. This information is not intended as a substitute for professional medical care. Always follow your healthcare professional's instructions. ?? Patient Care team information Care Team PersonnelName: Maribell Rodriguez MD Position: [facility] Outreach Member Role: PCP Address: Address: [address] [place] [address]- Name: Avis Roche V Position: [facility] OB RN Member Role: Patient Care Provider Care Team Related PersonsName: CORNEL CASTILLO Address: home [address] [place] [address]
--- OUTSIDE RECORDS SUMMARY | 2022-05-21 19:57 | XMS_ITS | Continuity of Care Document ---
:1990 Author Organization [facility] Address [address] [place] [address]- Care Team Providers Name Role Phone Maribell Rodriguez MD Primary Care Physician [place] [facility] [place] 05[place]14[place]22 [facility] [address] [place] [id number]- Allergies, Adverse Reactions, Alerts No Known Allergies Medications Flagyl Tablet 500 mg, By Mouth, Every 12 hours, # 14 tablet, Refills 0, Maintenance, 02/24/22 14:06:00 EDT Start Date: 02/24/22 Stop Date: 03/03/22 Status: OrderedPrenatal 19 ([place]) oral tablet 1 tablet, By Mouth, Daily, # 90 tablet, 3 Refills, Maintenance, 04/19/22 14:39:00 EST, [id number], Partial fill upon patient request if the prescription is for a schedule II opioid drug., 1 tablet By Mouth Daily, 158, cm, 04/19/22 10:17:00 EST... Start Date: 04/19/22 Status: Ordered Social History Social History Type Response Smoking Status Never (less than 100 in life time) entered on: 04/19/22 Sex Patient Care team information Care Team PersonnelName: Maribell Rodriguez MD Position: [facility] Outreach Member Role: PCP Address: Address: [address] [place] [address]- Care Team Related PersonsName: CORNEL CASTILLO Address: home [address] [place] [address]
--- OUTSIDE RECORDS SUMMARY | 2022-05-21 19:57 | XMS_ITS | Continuity of Care Document ---
:1990 Author Organization [facility] Address [address] [place] [address]- Care Team Providers Name Role Phone Maribell Rodriguez MD Primary Care Physician [place] [facility] [place] - 04/19/[address] [address]- Discharge Disposition: Transferred to an intermediate care faci Attending Physician: Vidal Bertrand MD Admitting Physician: Vidal Bertrand MD Referring Physician: Not on Staff, Referring MD Allergies, Adverse Reactions, Alerts No Known Allergies Medications Flagyl Tablet 500 mg, By Mouth, Every 12 hours, # 14 tablet, Refills 0, Maintenance, 02/24/22 14:06:00 EDT Start Date: 02/24/22 Stop Date: 03/03/22 Status: OrderedPrenatal 19 ([place]) oral tablet 1 tablet, By Mouth, Daily, # 90 tablet, 3 Refills, Maintenance, 04/19/22 14:39:00 EST, [id number], Partial fill upon patient request if the prescription is for a schedule II opioid drug., 1 tablet By Mouth Daily, 158, cm, 04/19/22 10:17:00 EST... Start Date: 04/19/22 Status: Ordered Vital Signs Most recent to oldest [Reference Range]: 1 Height 158 cm (04/19/22 10:17 AM) Weight 67.9 kg (04/19/22 10:17 AM) Oxygen Saturation [94-100 %] 100 % (04/19/22 10:17 AM) Pulse Rate [55-90 bpm] 62 bpm (04/19/22 10:17 AM) Body Mass Index [18.5-24.99 kg/m2] 27.2 kg/m2 *H* (04/19/22 10:17 AM) Blood Pressure [90-138/55-84 mm Hg] 130/79 mm Hg (04/19/22 10:17 AM) Respiratory Rate [16-30 br/min] 16 br/min (04/19/22 10:17 AM) Temperature [96.8-100.4 DegF] 98.2 DegF (04/19/22 10:17 AM) Mode of Delivery (Oxygen) Room air (04/19/22 10:17 AM) Blood pressure sites Arm, right (04/19/22 10:17 AM) Temperature Route Oral (04/19/22 10:17 AM) Dry Weight 67.9 kg (04/19/22 10:17 AM) Weight Obtained Via Standing scale (04/19/22 10:17 AM) Dry Weight Obtained Via Standing scale (04/19/22 10:17 AM) Social History Social History Type Response Smoking Status Never (less than 100 in life time) entered on: 04/19/22 Sex Patient Care team information Care Team PersonnelName: Maribell Rodriguez MD Position: [facility] Outreach Member Role: PCP Address: Address: [address] [place] [address]- Care Team Related PersonsName: CORNEL CASTILLO Address: [address] [place] [address]
--- OUTSIDE RECORDS SUMMARY | 2022-05-21 19:57 | XMS_ITS | Continuity of Care Document ---
:1990 Author Organization [facility] Address [address] [place] [address]- Care Team Providers Name Role Phone Maribell Rodriguez MD [id number] - 02/22/[address] [address]- Discharge Disposition: A-D/C Home Attending Physician: Amelia Plunkett MD Admitting Physician: Amelia Plunkett MD Referring Physician: Not on Staff, Referring MD Allergies, Adverse Reactions, Alerts No Known Allergies Medications Pyridium 100 mg oral tablet 1 tablet = 100 mg, By Mouth, 3 times a day, for 3 days, # 9 tablet, 0 Refills, Acute 02/25/22 23:30:00 EDT, 02/22/22 23:30:00 EDT, Tablet, [facility], Partial fill upon patient request if the prescription is for a schedule II opioi... Start Date: 02/22/22 Stop Date: 02/25/22 Status: Ordered Vital Signs Most recent to oldest 1 2 3 [Reference Range]: Height 158 cm 158 cm 158 cm (02/22/22 11:42 PM) (02/22/22 6:48 PM) (02/22/22 6: 26 PM) Weight 64.5 kg 64.5 kg 64.5 kg (02/22/22 11:42 PM) (02/22/22 6:48 PM) (02/22/22 6: 26 PM) Oxygen Saturation [94-100 %] 100 % 100 % 99 % (02/22/22 11:42 PM) (02/22/22 6:26 PM) (02/22/22 6: 24 PM) Pulse Rate [55-90 bpm] 88 bpm 68 bpm 76 bpm (02/22/22 11:42 PM) (02/22/22 6:26 PM) (02/22/22 6: 24 PM) Body Mass Index [18.5-24.99 25.84 kg/m2 25.84 kg/m2 kg/m2] *H* *H* (02/22/22 11:42 PM) (02/22/22 6:26 PM) Blood Pressure [90-138/55-84 115/60 mm Hg 111/67 mm Hg mm Hg] (02/22/22 11:42 PM) (02/22/22 6:26 PM) Respiratory Rate [16-30 16 br/min 16 br/min br/min] (02/22/22 11:42 PM) (02/22/22 6:26 PM) Temperature [96.8-100.4 DegF] 97.8 DegF 98.5 DegF (02/22/22 11:42 PM) (02/22/22 6:26 PM) Mode of Delivery (Oxygen) Room air Room air (02/22/22 11:42 PM) (02/22/22 6:26 PM) Blood pressure sites Arm, right (02/22/22 6:26 PM) Temperature Route Oral Oral (02/22/22 11:42 PM) (02/22/22 6:26 PM) Dry Weight 64.5 kg 64.5 kg 64.5 kg (02/22/22 11:42 PM) (02/22/22 6:48 PM) (02/22/22 6: 26 PM) Weight Obtained Via Standing scale (02/22/22 6:26 PM) Dry Weight Obtained Via Standing scale (02/22/22 6:26 PM) Care Team PersonnelName: Maribell Rodriguez MD Address: [address] [place] [id number]
--- OUTSIDE RECORDS SUMMARY | 2022-05-21 19:57 | XMS_ITS | Continuity of Care Document ---
:1990 Author Organization [facility] Address [address] [place] [address]- Care Team Providers Name Role Phone Maribell Rodriguez MD Primary Care Physician En[place] [facility] [place] Date(s): 05/04/22 - 05/04/[address] [address] Discharge Disposition: A-D/C Home Attending Physician: Amelia Raza DO Admitting Physician: Amelia Raza DO Referring Physician: Amelia Raza DO Allergies, Adverse Reactions, Alerts No Known Allergies Medications Flagyl Tablet 500 mg, By Mouth, Every 12 hours, # 14 tablet, Refills 0, Maintenance, 02/24/22 14:06:00 EDT Start Date: 02/24/22 Stop Date: 03/03/22 Status: OrderedMacrobid macrocrystals-monohydrate 100 mg oral capsule 1 capsule = 100 mg, By Mouth, 2 times a day, for 7 days, # 14 capsule, 0 Refills, Acute 05/11/22 16:18:00 EST, 05/04/22 16:18:00 EST, Capsule, [id number], Partial fill upon patient request if the prescription is for a schedule II opioid drug.,... Start Date: 05/04/22 Stop Date: 05/11/22 Status: OrderedPrenatal 19 ([place]) oral tablet 1 tablet, By Mouth, Daily, # 90 tablet, 3 Refills, Maintenance, 04/19/22 14:39:00 EST, [id number], Partial fill upon patient request if the prescription is for a schedule II opioid drug., 1 tablet By Mouth Daily, 158, cm, 04/19/22 10:17:00 EST... Start Date: 04/19/22 Status: Ordered Procedures Procedure Date Related Diagnosis Body Site Status [place] tooth Completed Results Orders for Microbiology Reports Name Date Urine Culture (URINE CULTURE) 05/04/22 Microbiology Reports TEST:Urine Culture STATUS:Unauthenticated BODY SITE: SOURCE:URINE COLLECTED DATE/TIME:05/04/22 1:04 PMUrine Culture SPECIMEN DESCRIPTION : URINE CLEAN CATCH/MIDSTREAM SPECIAL REQUESTS : NONE Reflexed from [id number] REPORT STATUS : PRELIMINARY REPORT Vital Signs Most recent to oldest [Reference Range]: 1 Oxygen Saturation [94-100 %] 100 % (05/04/22 1:02 PM) Pulse Rate [55-90 bpm] 80 bpm (05/04/22 1:02 PM) Blood Pressure [90-138/55-84 mm Hg] 124/63 mm Hg (05/04/22 1:02 PM) Respiratory Rate [16-30 br/min] 16 br/min (05/04/22 1:02 PM) Temperature [96.8-100.4 DegF] 98.3 DegF (05/04/22 1:02 PM) Mode of Delivery (Oxygen) Room air (05/04/22 1:02 PM) Blood pressure sites Arm, right (05/04/22 1:02 PM) Temperature Route Oral (05/04/22 1:02 PM) Social History Social History Type Response Smoking Status Never (less than 100 in life time) entered on: 04/19/22 Sex Note Dalia Blackwell RN: PERFORM Event Display: Discharge/Transfer Note Hospital Authored Date: [id number] Nursing Discharge Note Entered On: 05/04/2022 16:23 EST Performed On: 05/04/2022 16:23 EST by Dalia Blackwell RN Nursing Discharge Note 2 Discharge Time : 05/04/2022 16:23 EST Discharge Level of Care at Discharge : Home/Prison/Foster Care Patient Left Unit Via : Ambulatory Patient Accompanied Off Unit with : Significant other DC Instructions Provided & Signed by Pt : Yes Patient Understands D/C Instructions : Yes Patient Instructions Discharge Signed : Yes Did Pt have Specialty Bed or Wound Vac : No Dalia Blackwell RN - 05/04/2022 16:23 Marie HUTCHINS, Dalia Russell: PERFORM Event Display: Patient Education/Instruction Authored Date: [id number] Inpatient Adult Discharge Instructions [address] [address] Name: RAÚL RAYMUNDO : 1990 Visit: 05/04/2022 12:25:00 Current Date: 05/04/2022 16:18 Account: [id number] Inpatient Adult Discharge Instructions We would like [...] and their families. Surveys are administered by [employer] ?? If further treatment with your primary care physician or another doctor is recommended, it is important for you to keep the appointment. Call your primary care physician or return to the Emergency Department immediately if your condition worsens, fails to improve, or new symptoms develop. If you need to find a doctor, you can call [facility] [employer] for a referral at [phone] or toll free at [phone]) or log in to [email or web address].. ?? You can view and manage your care through the patient portal or by using a health care tayler of your choosing. [employer] is a website that allows you to securely view your medical information including your hospital discharge summary, office visit summaries, medications and follow-up visits. You can also request appointments, renew medications, and request access to your medical information using a health care tayler of your choosing, or just ask a question. You can enroll at [email or web address] or register during your next office visit. You have been discharged from [facility], Patient Care Unit: WETU1. If you have any questions regarding these instructions after you leave, please call us and we will be happy to assist you. [facility] Your Care Team Attending Physician Otmaskin DO, Amelia A Tests Performed Below is a partial list of the tests performed during your hospitalization. You may have had other tests and procedures not included in this list. Please discuss all test results with your provider. Complete Urinalysis/Reflex Culture Primary Care Provider Maribell Rodriguez MD Advance Directive Health Care Proxy on File No No qualifying data available. Discharge Vitals Temperature: 98.3 DegF Pulse Rate: 80 bpm Respiratory Rate: 16 br/min Systolic Blood Pressure: 124 mm Hg Diastolic Blood Pressure: 63 mm Hg Oxygen Saturation: 100 % Studies Pending All tests and labs ordered during this hospital stay have been completed unless listed below. Pleasediscuss all pending results with your provider listed above in these instructions. ?? Chlamydia/N. Gonorrhoeae TMA (NAAT) (CHLAMYDIA GC AMP PROBE) Urine Culture Vaginosis Vaginitis Panel (BV, CV/TV) (VAGINITIS PANEL (BV, CV/TV)) What to do next Instructions From Your Doctor Discharge Orders You Need to Schedule the Following Appointments [facility] [place] [employer] [phone] When?? Where: Discharge Medications RAÚL RAYMUNDO :1990 Visit Date:05/04/2022 Medications: Please continue your medications until treatment is completed or stopped by your provider. Medications not listed below should be discontinued. Discuss any questions related to medications with your provider. What How Much When Instructions Next Dose Unchanged Metronidazole (Flagyl Tablet) 500 Milligram Oral Every 12 hours Duration: 7 Days Unchanged Multivitamin, ( 19 ([place]) oral tablet) 1 tab(s) Oral Daily Test Results Below is a partial list of the most recent Laboratory test results done prior to this discharge. You may have had other tests and procedures not included in this list. Please discuss all test results with your provider. Complete Urinalysis/Reflex Culture (05/04/2022) ???Appear/Color, Urine - YELLOW???Clarity - TURBID???Specific [place], Urine - 1.030???pH, Urine - 5.5???Albumin, Urine - 1+???Glucose, Urine - NEGATIVE???Ketones, Urine - NEGATIVE???Bilirubin, Urine -NEGATIVE???Hemoglobin, Urine - NEGATIVE???Nitrite, Urine - NEGATIVE???Leukocyte, Urine - 3+???Urobili nogen - NORMAL???WBC's, Urine - 5 /HPF???RBC's, Urine - 2 /HPF???Bacteria - HEAVY???Squamous Epith -23 /HPF???Mucus - SLIGHT???Culture Indication - CULTURE INDICATED Allergies (NKA means No Known Allergies) NKA Problems Active Problems??(1) ?? Education Materials Below is the list of Educational Leaflet Providered with your Discharge Instructions. Urinary Tract Infections in Women?? Nitrofurantoin Oral Capsule?? Valuables and Belongings I fully understand and agree that [facility] accepts no responsibility for all my [...] Status?? Pulmonary Rehab Discharge Status?? Respiratory Rate: 16 br/min ? Common Emergency Awareness Tips IS [...] are strongly encouraged to quit. Please call [facility] [employer] network [employer] Link at [phone] or [phone] ([phone]) or log in to [email or web address] for referrals to smoking cessation programs. ?? The National Suicide Prevention Hotline is available 26/12 if you or someone you know needs to find areason to keep living. By calling 5-046-199-Wireless Se[employer] (6518) you'll be connected to a skilled, trained counselor at a crisis center in your area. INPATIENT DISCHARGE INSTRUCTIONS SIGNATURE PAGE RAÚL RAYMUNDO Location:[facility] Registration Date and Time:05/04/2022 12:25 EST Primary Care Physician: Jennifer SINGH, Maribell Husain, I RAÚL RAYMUNDO, have received the above patient education materials/instructions and have verbalized understanding. If ambulance or transport services are being used I further acknowledge being given a choice of service. ?? If you need to contact me, please call me at this number: . Patient/Metal Stud Framer Name: Patient/Metal Stud Framer Signature: Relationship to Patient: Witness Name/Signature: Date: DZuleyka HUTCHINS, Dalia Russell: PERFORM Event Display: Patient Education Leaflets Authored Date: [id number] Urinary Tract Infections in Women ?? [id number] Urinary Tract Infections in Women Urinary tract infections (UTIs) are most often caused by bacteria. These bacteria enter the urinarytract. The bacteria may come from inside the body. Or they may travel from the skin outside the rectum or vagina into the urethra. Female anatomy makes it easy for bacteria from the bowel to enter a woman???s urinary tract. This is the most common source of UTI. This means women develop UTIs more often than men. Pain in or around the urinary tract is a common UTI symptom. Most UTIs are treated with antibiotics. These kill the bacteria. The length of time you need to take them depends on the type of infection. It may be as short as 3 days. If you have repeated UTIs, youmay need a low-dose antibiotic for several months. Take antibiotics exactly as directed. Don???t stop taking them until all of the medicine is gone. If you stop taking the antibiotic too soon, the infection may not go away. You may also develop a resistance to the antibiotic. This can make it much harder to treat in the future. Home care The lifestyle changes below will help get rid of your UTI. They may also help prevent future UTIs: ??? Drink plenty of fluids. This includes water, juice, or other caffeine-free drinks. Fluids help flush bacteria out of your body. ??? Empty your bladder. Always empty your bladder when you feel the urge to pee. And always pee before going to sleep. Urine that stays in your bladder can lead to infection. Try to pee before and after sex as well. ??? Practice good personal hygiene. Wipe yourself from front to back after using the toilet. This helps keep bacteria from getting into the urethra. ??? Use condoms during sex. These help prevent UTIs caused by sexually transmitted bacteria. Also don't use sp ermicides during sex. These can increase the risk for UTIs. Choose other forms of control instead. For women who tend to get UTIs after sex, a low-dose of a preventive antibiotic may be used. Be sure to discuss this option with your healthcare provider. ??? Try holistic supplements such as cranberry tablets and D-mannose. These may help prevent UTIs. ??? Try topical vaginal estrogen. You can use this to help prevent UTIs if you have gone through menopause. ?? Follow-up care Follow up with your healthcare provider as directed. He or she may test to make sure the infection has cleared. If needed, more treatment may be started. ?? When to seek medical advice Call your healthcare provider right away if any of these occur: ??? Frequent urination ??? Pain or burning when passing urine ??? Fever of 100.4??F (38??C) or higher , or as directed by your healthcare provider ??? Urine looks dark, cloudy, or reddish in color. This may mean that blood is in the urine. ??? Urine smells bad ??? Feeling pain even when not urinating ??? Tiredness ??? Pain in the belly (abdomen) area below the bellybutton, or in the back or side, below the ribs ??? Nausea or vomiting ??? Have a strong urge to urinate, but only a small amount of urine is passed ??? Uncomfortable pressure above the pubic bone ??? Feeling confused or very tired (in older adults) ?? Last Reviewed Date: 2019 ?? [id number] The [employer]. All rights reserved. This information is not intended as a substitute for professional medical care. Always follow your healthcare professional's instructions. ??Rosalva HUTCHINS, Dalia Russell: PERFORM Event Display: Patient Education Leaflets Authored Date: [id number] Nitrofurantoin Oral Capsule ?? [id number] Nitrofurantoin Oral Capsule Brands: Macrobid Uses For treating bacterial infection. ?? Instructions If you have trouble swallowing this medicine, please ask your pharmacist if a liquid is available. Take the medicine with food. Store at room temperature away from heat, light, and moisture. Do not keep in the bathroom. Drink extra water while on this medicine. Adults should try to drink 6-8 cups (48 to 64 oz.) of water every day. Do not take with antacids containing magnesium. If you forget to take a dose on time, take it as soon as you remember. If it is almost time for thenext dose, do not take the missed dose. Return to your normal dosing schedule. Do not take 2 doses of this medicine at one time. Tell your doctor and pharmacist about all your medicines. Include prescription and gfbw-ska-oukzpwhsaeaeyfay, vitamins, and herbal medicines. Tell your doctor if symptoms do not get better or if they get worse. Keep using this medicine for the full number of days that it is prescribed. Do not stop the medicine even if you start to feel better. ?? Cautions Tell your doctor and pharmacist if you ever had an allergic reaction to a medicine. This medicine is associated with a rare but very serious medical condition. Please speak with your doctor about symptoms you should look out for while on this medicine. Notify your doctor immediately if you develop those symptoms. Some patients taking this medicine have experienced serious side effects. Please speak with your doctor to understand the risks and benefits associated with this medicine. Do not use the medication any more than instructed. Please check with your doctor before drinking alcohol while on this medicine. Contact your doctor if you develop any signs of a new infection such as fever, cough, sore throat, or chills. Please tell your doctor if you have moderate to severe diarrhea while on this medicine. Do not treat the diarrhea with ddxd-fpv-eogrrdx diarrhea medicine. Tell the doctor or pharmacist if you are , planning to be , or . Do not start or stop any other medicines without first speaking to your doctor or pharmacist. Call your doctor right away if you notice any unusual bleeding or bruising. Do not share this medicine with anyone who has not been prescribed this medicine. ?? Side Effects The following is a list of some common side effects from this medicine. Please speak with your doctor about what you should do if you experience these or other side effects. ??? diarrhea ??? changes in the color of the urine or stool ??? liver problems ??? nausea and vomiting ??? stomach upset or abdominal pain ??? vaginal itching or yeast infection Call your doctor or get medical help right away if you notice any of these more serious side effects: ??? unusual bruising or discoloration on skin ??? chest pain ??? confusion ??? severe, watery or bloody diarrhea ??? fever or chills ??? flu-like symptoms ??? numbness or tingling in hands and feet ??? signs of liver damage (such as yellowing of eye or skin, dark urine, or unusual tiredness) ??? shortness of breath ??? red, peeling or blistering skin ??? light colored stool ??? severe or persistent vomiting A few people may have an allergic reaction to this medicine. Symptoms can include difficulty breathing, skin rash, itching, swelling, or severe dizziness. If you notice any of these symptoms, seek medical help quickly. ?? Extra Please speak with your doctor, nurse, or pharmacist if you have any questions about this medicine. ?? [email or web address] IMPORTANT NOTE: This document tells you briefly how to take your medicine, but it does not tell youall there is to know about it. Your doctor or pharmacist may give you other documents about your medicine. Please talk to them if you have any questions. Always follow their advice. There is a more complete description of this medicine available in Swedish. Scan this code on your smartphone or tablet or use the web address below. You can also ask your pharmacist for a printout. If you have any questions, please ask your pharmacist. The display and use of this drug information is subject to Terms of Use. Copyright(c) 2021 [employer]. ?? The [employer]. All rights reserved. This information is not intended as a substitute for professional medical care. Always follow your healthcare professional's instructions. ?? Patient Care team information Care Team PersonnelName: Maribell Rodriguez MD Position: [facility] Outreach Member Role: PCP Address: Address: [address] [place] [address]- Name: Dalia Blackwell RN Position: [facility] OB RN Member Role: OB RN Care Team Related PersonsName: CORNEL CASTILLO Address: [address] [place] [address]
[2022-05-21 20:10] LABS: MANUAL DIFF FLAG NO
[2022-05-21 20:29] LABS: Basophils Percent Auto 0.2 % (0-2); Eosinophils Absolute Auto 0.1 X10*3/uL (0.0-0.4); Eosinophils Percent Auto 0.8 % (0-4); Hematocrit 36.6 % (37.0-47.0); Hemoglobin 12.5 g/dl (12.0-16.0); Imm Gran Abs Auto 0.04 X10*3/uL (0.00-0.03); Imm Gran Pct Auto 0.5 % (0.0-0.4); Lymphocytes Absolute Auto 2.8 X10*3/uL (1.2-4.9); Lymphocytes Percent Auto 31.2 % (20-40); Mean Corpuscular HGB Conc 34.2 g/dl (31.0-35.0); Mean Corpuscular Hemoglobin 30.4 pg (27.0-33.0); Mean Corpuscular Volume 89.1 fL (80.0-98.0); Mean Platelet Volume 10.9 fL (9.4-12.3); Monocytes Absolute Auto 0.8 X10*3/uL (0.1-1.2); Monocytes Percent Auto 8.5 % (2-11); Neutrophils Absolute Auto 5.2 x10*3/uL (2.0-8.3); Neutrophils Percent Auto 58.8 % (45-73); Platelet Count 192 X10*3/uL (160-400); Red Blood Count 4.11 X10*6/uL (4.20-5.50); Red Cell Distribution Width 12.4 % (11.0-16.0); White Blood Count 8.8 X10*3/uL (4.8-10.8)
[2022-05-21 20:31] LABS: Appearance Urine Cloudy; Color Urine Yellow; Glucose Urine UA Negative (Negative); Leukocyte Esterase Urine Moderate (2+) (Negative); Nitrite Urine Negative (Negative); Specific Gravity - Urine 1.025 (1.005-1.025); UMIC TRIGGER UACC YES; Urine Blood Negative (Negative); Urine Ketones Negative (Negative); Urine Protein Negative (Neg-Trace)
[2022-05-21 20:42] LABS: UPreg QC Valid YES; Urine Pregnancy POSITIVE (NEGATIVE)
[2022-05-21 20:47] LABS: Bacteria Urine 3+ (None Seen); Hyaline Casts Urine 0-2 /LPF (0-2); RBC Urine 0-2 /HPF (0-2); UACC Culture Trigger YES
[2022-05-21 21:06] LABS: Alanine Aminotransferase 43 U/L (0-31); Alkaline Phosphatase 59 U/L (39-117); Anion Gap 12 (12-20); Aspartate Amino Transferase 26 U/L (5-31); Bilirubin Total 0.2 mg/dL (0.0-1.0); Blood Urea Nitrogen 11 mg/dL (9-16); Calcium 9.3 mg/dL (8.4-10.2); Carbon Dioxide 24 mmol/L (22-29); Chloride 105 mmol/L (96-108); Creatinine Clr Calc Pharmacy 117.7; Estimated Glomerular Filt Rate > 60; Glucose Random 98 mg/dL (60-115); Lipase 28 U/L (8-78); Magnesium 1.9 mg/dL (1.6-2.6); Potassium 3.3 mmol/L (3.3-5.1); Sodium 138 mmol/L (135-145); Total Protein 6.9 g/dL (6.5-8.0)
[2022-05-21 21:26] LABS: Influenza A PCR NEGATIVE (Negative); Influenza B PCR NEGATIVE (Negative); Resp Syncy Virus RNA Qual PCR NEGATIVE (Negative); SARS COV2 PCR INHOUSE NEGATIVE (Negative)
[2022-05-21 21:47] LABS: HCG Quantitative 83701 mIU/mL
[2022-05-21 23:49] LABS: Prothrombin Time 11.6 SEC (10.0-13.1)
== END 2022-05-22 02:36 | disposition left against medical advice (07) ==
PROVIDERS: Physician Assistant Medical; Emergency Provider Emergency Medicine
DX: O26.891 Other specified pregnancy related conditions, first trimester (principal); R10.9 Unspecified abdominal pain; Z3A.11 11 weeks gestation of pregnancy
CPT/HCPCS: 0241U; 36415; 76801; 80053; 81001; 81025; 83690; 83735; 84702; 85025; 85610; 86900; 86901; 87086; 99282; 99284

== ENCOUNTER 2022-06-23 13:12 | Emergency (ER) | payer MEDICAID, SELFPAY ==
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
[2022-06-23 13:42] VITALS: BP 113/87; PULSE 79; RESP 18; TEMP 36.6; O2SAT 98; BMI 29.2
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
[2022-06-23 14:09] VITALS: BP 110/55; PULSE 77; RESP 16; O2SAT 100
[2022-06-23 14:11] LABS: MANUAL DIFF FLAG NO
[2022-06-23 14:14] LABS: Basophils Percent Auto 0.2 % (0-2); Eosinophils Absolute Auto 0.1 X10*3/uL (0.0-0.4); Eosinophils Percent Auto 0.7 % (0-4); Hematocrit 36.8 % (37.0-47.0); Hemoglobin 12.3 g/dl (12.0-16.0); Imm Gran Abs Auto 0.09 X10*3/uL (0.00-0.03); Imm Gran Pct Auto 0.8 % (0.0-0.4); Lymphocytes Absolute Auto 2.9 X10*3/uL (1.2-4.9); Lymphocytes Percent Auto 27.3 % (20-40); Mean Corpuscular HGB Conc 33.4 g/dl (31.0-35.0); Mean Corpuscular Hemoglobin 29.9 pg (27.0-33.0); Mean Corpuscular Volume 89.5 fL (80.0-98.0); Mean Platelet Volume 10.2 fL (9.4-12.3); Monocytes Absolute Auto 0.9 X10*3/uL (0.1-1.2); Monocytes Percent Auto 8.7 % (2-11); Neutrophils Absolute Auto 6.7 x10*3/uL (2.0-8.3); Neutrophils Percent Auto 62.3 % (45-73); Platelet Count 193 X10*3/uL (160-400); Red Blood Count 4.11 X10*6/uL (4.20-5.50); Red Cell Distribution Width 12.2 % (11.0-16.0); White Blood Count 10.7 X10*3/uL (4.8-10.8)
[2022-06-23 14:32] LABS: Prothrombin Time 11.1 SEC (10.0-13.1)
[2022-06-23 14:37] LABS: Alanine Aminotransferase 64 U/L (0-31); Albumin Level 3.9 g/dL (3.5-5.0); Alkaline Phosphatase 55 U/L (39-117); Anion Gap 12 (12-20); Aspartate Amino Transferase 41 U/L (5-31); Bilirubin Total 0.2 mg/dL (0.0-1.0); Blood Urea Nitrogen 8 mg/dL (9-16); Calcium 9.5 mg/dL (8.4-10.2); Carbon Dioxide 23 mmol/L (22-29); Chloride 105 mmol/L (96-108); Creatinine Clr Calc Pharmacy 129.9; Estimated Glomerular Filt Rate > 60; Glucose Random 81 mg/dL (60-115); Magnesium 1.8 mg/dL (1.6-2.6); Potassium 3.9 mmol/L (3.3-5.1); Sodium 136 mmol/L (135-145)
[2022-06-23] MEDS: Acetaminophen 325 MG TABLET 975 MG PO (16:01)
== END 2022-06-23 16:04 | disposition home or self-care (01) ==
PROVIDERS: Physician Assistant Medical; Emergency Provider Emergency Medicine Emergency Medical Services
DX: S33.5XXA Sprain of ligaments of lumbar spine, initial encounter (principal); R10.30 Lower abdominal pain, unspecified; M54.50 Low back pain, unspecified; R42 Dizziness and giddiness; V43.62XA Car passenger injured in collision with other type car in traffic accident, initial encounter; Y93.9 Activity, unspecified; Y92.410 Unspecified street and highway as the place of occurrence of the external cause; Y99.9 Unspecified external cause status; Z79.899 Other long term (current) drug therapy
CPT/HCPCS: 36415; 76700; 76815; 80053; 83735; 85025; 85610; 86900; 86901; 99284

== ENCOUNTER 2023-05-24 14:25 | Outpatient (REF) | payer MEDICAID, SELFPAY | END 2023-05-24 14:26 | disposition home or self-care (01) | LOC: HO.CHCLNP 14:25 | PROVIDERS: Visit Provider Internal Medicine | DX: R30.0 Dysuria (principal) | CPT/HCPCS: 87086 ==

== ENCOUNTER 2024-08-23 16:14 | Outpatient (REF) | payer MEDICAID, SELFPAY ==
[2024-08-25 12:17] LABS: Bacterial Vaginosis PCR POSITIVE (Negative); Candida Group PCR NOT DETECTED (Not Detect); Candida glab krusei PCR NOT DETECTED (Not Detect); Trichomonas vaginalis PCR NOT DETECTED (Not Detect)
[2024-08-25 13:09] LABS: CT PCR NOT DETECTED (Not Detect.); NG PCR NOT DETECTED (Not Detect.)
== END 2024-08-23 16:15 | disposition home or self-care (01) ==
LOC: HO.CHCLNP 16:14
PROVIDERS: Visit Provider Student in an Organized Health Care Education/Training Program
DX: N76.0 Acute vaginitis (principal)
CPT/HCPCS: 81515; 87491; 87591

== ENCOUNTER 2025-03-05 19:36 | Outpatient (REF) | payer MEDICAID, SELFPAY ==
--- OUTSIDE RECORDS SUMMARY | 2025-03-05 14:40 | XMS_ITS | Encounter Summary ---
Author Organization [employer] Address [address] [facility] 7[address] [place] [address] Care Team Providers Care Check Airman Name Role Phone Davis Lucas KAVON Primary Care Provider [phone] Reason for Visit * Reason Comments Urinary Frequency Encounter Details Date Type Department Care Team ([facility] Contact Info) Description 03/05/2025 2:40 PM EDT Office Visit [facility] [address] [place], [place] [phone] Aisha Munson MD [address] [place] [address] Urinary frequency (Primary Dx); Screen for STD (sexually transmitted disease) Social History Tobacco Use Types Packs/Day Years Used Date Smoking Tobacco: Every Day Cigarettes Smokeless Tobacco: Never Tobacco Cessation:Ready to Q uit: Not Asked; Counseling Given: Not Answered Comments:Smokes 5 cig a day x the last 2 years. Comments Unknown Sex and Gender Information Value Date Recorded Sex Assigned at Female 04/04/2022 10:33 AM EDT Legal Sex Female 10:33 AM EDT Gender Identity Female 04/04/2022 10:33 AM EDT Sexual Orientation Straight 08/23/2024 3: 38 PM EDT documented as of this encounter Last Filed Vital Signs Vital Sign Reading Time Taken Comments Blood Pressure 133/84 03/05/2025 3:03 PM EDT Pulse 75 03/05/2025 3:03 PM EDT Temperature - - Respiratory Rate 20 03/05/2025 3:03 PM EDT Oxygen Saturation 98% 03/05/2025 3:03 PM EDT Inhaled Oxygen Concentration - - Weight 70.8 kg (156 lb) 03/05/2025 3:03 PM EDT Height 157.5 cm (5' 2 ) 03/05/2025 3:03 PM EDT Body Mass Index 28.53 03/05/2025 3:03 PM EDT documented in this encounter Progress Notes * Aisha Munson MD - 03/05/2025 2:40 PM EDT SUBJECTIVE Soumya Garcia is a 35 y.o. female who presents for Urinary Frequency. Urinary Frequency Associated symptoms include frequency. Pertinent negatives include no chills. 5 days history of urinary frequency with lower abdominal pain. No associated fever. Patient admits drinking sodas daily. Mrs. Soumya Garcia also reports associated vaginal discharge (unclear color) no particular odor. Sexually active with 1 sexual partner only for several years. Sexual partner is asymptomatic. Problem List[1] Allergies[2] Medications Ordered Prior to Encounter[3] Review of Systems Constitutional: Negative for appetite change, chills and diaphoresis. Respiratory: Negative for cough, choking and shortness of breath. Cardiovascular: Negative for palpitations and leg swelling. Gastrointestinal: Positive for abdominal pain. Genitourinary: Positive for frequency and vaginal discharge. Musculoskeletal: Negative for gait problem and joint swelling. OBJECTIVE Vitals: 03/05/25 1503 BP: 133/84 BP Location: Left arm Patient Position: Sitting BP Cuff Size: Adult Pulse: 75 Resp: 20 SpO2: 98% Weight: 156 lb (70.8 kg) Height: 5' 2 (1.575 m) Physical Exam Constitutional: General: She is not in acute distress. Appearance: Normal appearance. She is not ill-appearing, toxic-appearing or diaphoretic. Pulmonary: Effort: Pulmonary effort is normal. Abdominal: Tenderness: There is abdominal tenderness. There is no right CVA tenderness or left CVA tenderness. Neurological: Mental Status: She is alert. Psychiatric: Mood and Affect: Mood normal. Assessment/Plan Assessment/Plan Diagnoses and all orders for this visit: Urinary frequency - POCT Urinalysis - Culture, Urine, Routine; Future - Chlamydia/N. Gonorrhoeae RNA, TMA, Urogenitial - HIV-1/2 Antigen and Antibodies, Fourth Generation, with Reflexes; Future - Hepatitis C Antibody with Reflex to HCV, RNA, Quantitative, Real-Time PCR; Future - RPR (Monitor) with Reflex to Titer; Future - Urinalysis w/reflex microscopic; Future - Trichomonas vaginalis RNA, Qualitative, TMA, Males; Future - Bacterial Vaginosis Panel - nitrofurantoin, macrocrystal-monohydrate, (Macrobid) 100 MG capsule; Take 1 capsule (100 mg) by mouth 2 times daily for 7 days. - phenazopyridine (Pyridium) 100 MG tablet; Take 1 tablet (100 mg) by mouth if needed in the morning, at noon, and at bedtime for bladder spasms for up to 3 days. Urine culture was ordered. Patient will be contacted with the results and the results of the rest of the workup. Instructed to call the office if not feeling any better in the next 48 to 72 hours. Advised to increase fluid intake Screen for STD (sexually transmitted disease) Comments: Safe sexual practices [1] There is no problem list on file for this patient. [2] No Known Allergies [3] Current Outpatient Medications on File Prior to Visit Medication Sig Dispense Refill aluminum chloride (Drysol) 20 % external solution Leave on skin for 6-8 hrs; wash off next morning with soap & water. Wear a t-shirt while sleeping. Wait at least 2 hours after bathing before applying. Do not apply to wounds or broken, irritated skin. 35 mL 3 No current facility-administered medications on file prior to visit. documented in this encounter Miscellaneous Notes * Patient Education Note - Aisha Munson MD - 03/05/2025 7:53 PM EDT Images from the original note were not included. Patient Education Table of Contents Peeing Often (Urinary Frequency) in Adults To view videos and all your education online visit, [email or web address] or scan this QR code with your smartphone. Access to this content will in one year. Peeing Often (Urinary Frequency) in Adults Urinary frequency means peeing, or urinating, more often than usual. This is also called overactivebladder. People usually pee 6 or 7 times in 24 hours. If you're concerned that you pee more often than usual, or if peeing often is starting to affect your day-to-day life, you may have an overactivebladder. How often you pee depends on: How much you drink and what you drink. How much you exercise. What medicines you're taking. The health of your bladder muscles and pelvic muscles. If you pee often, you may also feel an urgent need to pee. The stress and anxiety of needing to find a bathroom quickly can make this problem feel worse. This problem may go away on its own. You may also wish to seek treatment. Home treatments are the first step in treating the problem. Surgery may be done if home treatment fails. Follow these instructions at home: Bladder health Your health care provider can suggest ways to help you improve your bladder health. You may be toldto: Start a bladder diary. Keep track of these things: ? How often you pee. ? How much you pee at one time. ? What you eat and drink. ? If you leak any pee. Follow a bladder training program. You may be told to: ? Wait before going to the bathroom. In doing this, you learn to ignore some of the urges to pee. ? Wait a minute after you pee and try to pee again. This helps if you feel you are not completely emptying your bladder. ? Set a time to pee. The goal is to slowly increase the amount of time in which you wait to pee. Do Kegel exercises. These exercises help the muscles that control peeing to become stronger. This may help you control the urge to pee. Eating and drinking Eat and drink as told. You may be told to: Avoid caffeine. Drink small amounts of fluid more often. Avoid drinking in the evening. Stop drinking alcohol. Avoid foods or drinks that may irritate the bladder, such as: ? Coffee, tea, or soda. ? Artificial sweeteners. ? Early fruits, tomato-based foods, and chocolate. Urinary frequency may be worse if you have trouble pooping (constipation). You may need to take these steps to help prevent or treat the problem: Take medicines to help you poop. Eat foods high in fiber, like beans, whole grains, and fresh fruits and vegetables. Drink more fluids as told. General instructions Take your medicines only as told. Keep all follow-up visits. Your provider needs to check if the home treatments are working or if you need more treatment. Contact a health care provider if: You start peeing more than before. You feel pain when you pee. You notice blood in your pee. Your pee looks cloudy. You have a fever or chills. You throw up or you feel like you may throw up. Get help right away if: You can't pee. This information is not intended to replace advice given to you by your health care provider. Make sure you discuss any questions you have with your health care provider. Document Released: 2010-03-18 Document Updated: 2024-02-29 Document Reviewed: 2024-02-29 [employer] Patient Education ? 2024 [employer] documented in this encounter Plan of Treatment Scheduled Orders Name Type Priority Associated Diagnoses Orde r Schedule Culture, Urine, Routine Microbiology Routine Urinary frequency Expected: 03/05/2025 (Approximate), Expires: 03/05/2026 Chlamydia/N. Gonorrhoeae RNA, TMA, Urogenitial Microbiology Routine Urinary frequency Ordered: 03/05/2025 HIV-1/2 Antigen and Antibodies, Fourth Generation, with Reflexes Lab Routine Urinary frequency Expected: 03/05/2025 (Approximate), Expires: 03/05/2026 Hepatitis C Antibody with Reflex to HCV, RNA, Quantitative, Real-Time PCR Lab Routine Urinary frequency Expected: 03/05/2025, Expires: 03/05/2026 RPR (Monitor) with Reflex to Titer Lab Routine Urinary frequency Expected: 03/05/2025, Expires: 03/05/2026 Urinalysis w/reflex microscopic Lab Routine Urinary frequency Expected: 03/05/2025, Expires: 03/05/2026 Trichomonas vaginalis RNA, Qualitative, TMA, Males Lab Routine Urinary frequency Expected: 03/05/2025, Expires: 03/05/2026 Bacterial Vaginosis Panel Microbiology Routine Urinary frequency Ordered: 03/05/2025 documented as of this encounter Procedures Procedure Name Priority Date/Time Associated Diagnosis Comments POCT URINALYSIS DIPSTICK Routine 03/05/2025 3:31 PM EDT Urinary frequency documented in this encounter Results * POCT Urinalysis (03/05/2025 3:31 PM EDT) Color, UA Yellow Clarity, UA Clear Glucose, UA Negative Bilirubin, UA Negative Ketones, UA Negative Spec Grav, UA 1.030 Blood, UA Negative Negative, None Detected pH, UA 6.0 Protein, UA Negative Urobilinogen, UA 0.2 Leukocytes, UA Trace Negative, Rare, Trace Nitrite, UA Negative Negative, None Detected Appearance, UA clear QC Media Lot # [id number] Lot# Expiration Date 3393,026 Urine 03/05/2025 3:31 PM EDT Aisha Munson MD POINT OF CARE TEST ENTER/ED IT ORDERABLES Final Result documented in this encounter Visit Diagnoses Diagnosis Urinary frequency- Primary Screen for STD (sexually transmitted disease) Screening examination for venereal disease documented in this encounter Care Teams Check Airman Relationship Specialty Start Date End Date Davis Lucas CNP PCP - General Family Medicine 01/14/25 documented as of this encounter
--- OUTSIDE RECORDS SUMMARY | 2025-03-05 19:39 | XMS_ITS | Encounter Summary ---
Author Organization [employer] Address [address] [facility] 7[address] [place] [address] Care Team Providers Care Ginner Helper Name Role Phone Davis Lucas CNP Primary Care Provider [phone] Encounter Details Date Type Department Care Team (Latest Contact Info) Description 03/05/2025 Travel Social History Tobacco Use Types Packs/Day Years Used Date Smoking Tobacco: Every Day Cigarettes Smokeless Tobacco: Never Comments:Smokes 5 cig a day x the last 2 years. Comments Unknown Sex and Gender Information Value Date Recorded Sex Assigned at Female 04/04/2022 10:33 AM EDT Legal Sex Female 10:33 AM EDT Gender Identity Female 04/04/2022 10:33 AM EDT Sexual Orientation Straight 08/23/2024 3: 38 PM EDT documented as of this encounter Plan of Treatment Not on file documented as of this encounter Visit Diagnoses Not on filedocumented in this encounter Care Teams Ginner Helper Relationship Specialty Start Date End Date Davis Lucas CNP PCP - General Family Medicine 01/14/25 documented as of this encounter
--- OUTSIDE RECORDS SUMMARY | 2025-03-05 19:39 | XMS_ITS | Clinical Summary ---
Author Organization [employer] Address [address] [facility] [address] [place] [address] Care Team Providers Care Chemical Compounder Name Role Phone Davis Lucas CNP Primary Care Provider [phone] [phone] Allergies No known active allergies Medications aluminum chloride (Drysol) 20 % external solution Leave on skin for 6-8 hrs; wash off next morning with soap & water. Wear a t-shirt while sleeping. Wait at least 2 hours after bathing before applying. Do not apply to wounds or broken, irritated skin. 35 mL 3 3 Active nitrofurantoin, macrocrystal-mo nohydrate, (Macrobid) 100 MG capsuleIndicati ons:Urinary frequency Take 1 capsule (100 mg) by mouth 2 times daily for 7 days. 14 capsule 5 03/12/20 25 Active phenazopyridine (Pyridium) 100 MG tabletIndicatio ns:Urinary frequency Take 1 tablet (100 mg) by mouth if needed in the morning, at noon, and at bedtime for bladder spasms for up to 3 days. 6 tablet 5 03/08/20 25 Active Active Problems No known active problems Encounters Date Type Department Care Team Description 03/05/2025 2:40 PM EDT Office Visit [facility] [address] [place] [address] Aisha Munson MD Urinary frequency (Primary Dx); Screen for STD (sexually transmitted disease) 03/05/2025 Travel 03/05/2025 Telephone [facility] MED[facility] [address] [place] [address] Davis Lucas CNP Nurse Triage from Last 3 Months Social History Tobacco Use Types Packs/Day Years [...] Orientation Straight 08/23/2024 3: 38 PM EDT Last Filed Vital Signs Vital Sign Reading Time Taken Comments Blood Pressure 133/84 03/05/2025 3:03 PM EDT Pulse 75 03/05/2025 3:03 PM EDT Temperature 36.7 C (98.1 F) 08/23/2024 2:43 PM EDT Respiratory Rate 20 03/05/2025 3:03 PM EDT Oxygen Saturation 98% 03/05/2025 3:03 PM EDT Inhaled Oxygen Concentration - - Weight 70.8 kg (156 lb) 03/05/2025 3:03 PM EDT Height 157.5 cm (5' 2 ) 03/05/2025 3:03 PM EDT Body Mass Index 28.53 03/05/2025 3:03 PM EDT Plan of Treatment Health Maintenance Due Date Last Done Comments Depression Screening 1990 Lipid Panel 1990 SDOH Screening 1990 Disability Screening 1990 Alcohol/Substance Use Screening 2002 Family Planning (PISQ) 2005 HPV Vaccines (1 - 3-dose series) 2005 Hepatitis B Vaccines (1 of 3 - 19+ 3-dose series) 2009 Pneumococcal Vaccine: Pediat rics (0 to 5 Years) and At-Risk Patients (6 to 49) Years (1 of 2 - PCV) 2009 COVID-19 Vaccine ( - 2023-2 5 season) 2025 Influenza Vaccine (#1) 2025 Pap Smear 06/08/2025 06/08/2022 Tobacco Screening 03/05/2026 03/05/2025 Cervical Cancer Screening 06/08/2027 HPV/Cotest 06/08/2027 06/08/2022 DTaP/Tdap/Td Vaccines (2 - T d or Tdap) 09/15/2032 09/15/2022 Zoster Vaccines (1 of 2) 01/18/2040 RSV Patients and Pa tients Aged 60 years or older (1 - 1-dose 75+ series) 2065 HIV Screening Completed 06/14/2019 Hepatitis C Screening Completed 06/14/2019 HIB Vaccines Aged Out No longer eligi ble based on patient's age to complete this topic Hepatitis A Vaccines Aged Out No long er eligible based on patient's age to complete this topic IPV Vaccines Aged Out No longer eligi ble based on patient's age to complete this topic Meningococcal B Vaccine Aged Out No l onger eligible based on patient's age to complete this topic Meningococcal Vaccine Aged Out No eva althea eligible based on patient's age to complete this topic RSV under 20 months Aged Out No longe r eligible based on patient's age to complete this topic Rotavirus Vaccines Aged Out No longer eligible based on patient's age to complete this topic Procedures Procedure Name Priority Date/Time Associated Diagnosis Comments POCT URINALYSIS DIPSTICK Routine 03/05/2025 3:31 PM EDT Urinary frequency PAP/HPV Routine 06/08/2022 [facility] HISTORICAL HEPATITIS C ANTIBODY RFLX Routine 06/14/2019 11:20 AM EST [facility] HISTORICAL HIV AB/AG Routine 06/14/2019 11:20 AM EST from Last 3 Months or Most Recently Relevant to Health Maintenance Results * POCT Urinalysis (03/05/2025 3:31 PM [...] Media Lot # [id number] Lot# Expiration Date [id number] Urine 03/05/2025 3:31 PM EDT Aisha Munson MD POINT OF CARE TEST ENTER/ED IT ORDERABLES Final Result * (ABNORMAL) Hm Pap Smear (06/08/2022) Pathologist [facility] Pap Epithelial cell abnormality(A ) Negative for intraephithelial lesion or malignancy, Other Comment:ASCUS HPV Not Detected Undetected, Indeterminate, Quantitative, Not Detected Historical Provider HEALTH MAINTENANCE Final Result * HEPATITIS C ANTIBODY RFLX (06/14/2019 11:20 AM EST) [facility] HEPATITIS C ANTIBODY NONREACTIVE NONREACTIVE [facility] Comment: Antibodies to HCV not detected; does not exclude early acute HCV infection. 06/14/2019 11:2 0 AM EST Maribell Rodriguez MD HISTORICAL/NON ORDERABLE LABS Fi nal Result [facility] [address] * HIV AB/AG (06/14/2019 11:20 AM EST) [facility] HIV AG/AB NONREACTIVE [facility] Comment: HIV-1 p24 Ag and/or HIV-1/HIV-2 Ab not detected. A test result that is nonreactive does not exclude the possibility of exposure to or infection with HIV-1 and/or HIV-2. Nonreactive results in this assay for individuals with prior exposure to HIV-1 and/or HIV-2 may be due to antigen and antibody levels that are below the limit of detection of this assay. The [employer] HIV Ag/Ab Combo assay result and supplemental assay results should be interpreted in conjunction with the patient's clinical presentation, history and other laboratory results. If the results are inconsistent with clinical evidence, additional testing is suggested to confirm the result. 06/14/2019 11:2 0 AM EST Maribell Rodriguez MD HISTORICAL/NON ORDERABLE LABS Fi nal Result [facility] [address] from Last 3 Months or Most Recently Relevant to Health Maintenance Insurance [facility] C3 Care Teams Chemical Compounder Relationship Specialty Start Date End Date Davis Lucas CNP PCP - General Family Medicine 01/14/25
--- OUTSIDE RECORDS SUMMARY | 2025-03-05 19:39 | XMS_ITS | Encounter Summary ---
Author Organization [employer] Address [address] [facility] [address] [place] [address] Care Team Providers Care Hematologist Oncologist Name Role Phone Davis Lucas CNP Primary Care Provider [phone] Reason for Visit * Reason Onset Date Comments Nurse Triage 03/05/2025 Encounter Details Date Type Department Care Team ([facility] st Contact Info) Description 03/05/2025 Telephone [facility] [address] [place], [place] [phone] Davis Lucas CNP [address] [place], [place] [phone] Nurse Triage Social History Tobacco Use Types Packs/Day Years [...] PM EDT documented as of this encounter Miscellaneous Notes * Telephone Encounter - Gilda Cano RN - 03/05/2025 11:14 AM EDT called pt to triage, spoke to pt. pt states several days duration of urinary frequency, urgency, small amounts, low back pain, pelvic pressure. pt denies known fever, strong odor, blood, or other associated or severe symptoms. advised home care: rest, fluids, monitor temperature, and all back as needed. given appt today with [facility] at 2:40 for exam. pt understands and agrees with plan. insuranceverified. Protocol Used: Urinary Symptoms (Adult) Protocol-Based Disposition: See in Office or Video Visit Today Video visit not offered Positive Triage Questions: * Side (flank) or lower back pain present * Urinating more frequently than usual (i.e., frequency) OR new-onset of the feeling of an urgent need to urinate (i.e., urgency) * Patient wants to be seen * All higher-acuity triage questions were negative Care Advice Discussed: * Reasons To Call Back - Fever occurs - Pain or burning with urination - Unable to urinate and bladder feels full - You become worse * Telephone Encounter - Alexis Crump - 03/05/2025 10:31 AM EDT Symptom: Urination Pain Outcome: Schedule an urgent appointment (within 1 hour) or talk to a nurse or provider soon Reason: Severe pain now Please contact pt at [phone]. documented in this encounter Plan of Treatment Not on file documented as of this encounter Visit Diagnoses Not on filedocumented in this encounter Care Teams Hematologist Oncologist Relationship Specialty Start Date End Date Davis Lucas CNP PCP - General Family Medicine 01/14/25 documented as of this encounter
[2025-03-06 05:40] LABS: Bacterial Vaginosis PCR POSITIVE (Negative); Candida Group PCR NOT DETECTED (Not Detect); Candida glab krusei PCR NOT DETECTED (Not Detect); Trichomonas vaginalis PCR NOT DETECTED (Not Detect)
== END 2025-03-05 19:37 | disposition home or self-care (01) ==
LOC: HO.HHCLNP 19:36
PROVIDERS: Visit Provider Internal Medicine
DX: R35.0 Frequency of micturition (principal)
CPT/HCPCS: 81515

== ENCOUNTER 2025-03-19 09:54 | Outpatient (REF) | payer MEDICAID, SELFPAY ==
--- OUTSIDE RECORDS SUMMARY | 2025-03-19 11:41 | XMS_ITS | Clinical Summary ---
Author Organization [employer] Address [address] [facility] 7t [place] [address] Care Team Providers Care Elevator Builder Name Role Phone Davis Lucas CNP Primary Care Provider [phone] Allergies No known active allergies Medications aluminum [...] 7 days. 14 capsule 5 03/12/20 25 phenazopyridine (Pyridium) 100 MG tabletIndicatio ns:Urinary frequency Take 1 tablet (100 mg) by mouth if needed in the morning, at noon, and at bedtime for bladder spasms for up to 3 days. 6 tablet 5 03/08/20 25 metroNIDAZOLE (Flagyl) 500 MG tabletIndicatio ns:Bacterial vaginosis Take 1 tablet (500 mg) by mouth 2 times daily for 7 days. 14 tablet 5 03/13/20 25 Active Problems No known active problems Encounters Date Type Department Care Team Description 03/19/2025 Telephone [facility] [address] [place] [address] Davis Lucas CNP Nurse Triage 03/06/2025 Results Follow-Up [facility] [address] [place] [address] Ledy Rees, CUONG POCT Urinalysis, Bacterial Vaginosis Panel 03/06/2025 Orders Only [facility] [address] [place] [address] Aisha Munson MD Bacterial vaginosis (Primary Dx) 03/05/2025 2:40 PM EDT Office Visit [facility] [address] [place] [address] Aisha Munson MD Urinary frequency (Primary Dx); Screen for STD (sexually transmitted disease) 03/05/2025 Travel 03/05/2025 Telephone [facility] [address] [place] [address] Davis Lucas CNP Nurse Triage from Last [...] 03/05/2025 3:03 PM EDT Plan of Treatment Upcoming Encounters Date Type Department Care Team (Late st Contact Info) Description 03/19/2025 2:45 PM EDT Office Visit [facility] PEDS [address] [place] [address] Aisha Munson MD [address] [place] [address] Health Maintenance Due Date Last Done Comments [...] Routine 03/05/2025 3:31 PM EDT Urinary frequency BACTERIAL VAGINOSIS PANEL Routine 03/05/2025 3:22 PM EDT Urinary frequency HM PAP/HPV Routine 06/08/2022 [facility] HISTORICAL HEPATITIS C ANTIBODY RFLX Routine 06/14/2019 11:20 AM EST [facility] HISTORICAL HIV AB/AG Routine 06/14/2019 11:20 AM [...] Media Lot # [id number] Lot# Expiration Date [id number] Urine 03/05/2025 3:31 PM EDT Aisha Munson MD POINT OF CARE TEST ENTER/ED IT ORDERABLES Final Result * (ABNORMAL) Bacterial Vaginosis Panel (03/05/2025 3:22 PM EDT) TRICHOMONAS VAGINALIS DETECTION BY PCR NOT DETECTED Not Detect [facility] BACTERIAL VAGINOSIS DETECTION BY PCR POSITIVE(A) Negative [facility] Comment:The BV organism targ ets of the Xpert Xpress MVP test can becommensal in women; Xpert Xpress MVP positive results forbacterial vaginosis should be considered in conjunction withother clinical and patient information to determine thedisease status. Organisms that are not detected by the XpertXpress MVP test have also been reported to be associatedwith BV and aerobic vaginitis.The Xpert Xpress MVP test performance has not been evaluatedin patients under the age of 14. EMMA GROUP DETECTION BY PCR NOT DETECTED Not Detect [facility] Emma glab krusei PCR NOT DETECTED Not Detect [facility] Swab Vaginal structure / Unknown 03/05/2025 3:22 PM EDT 03/05/2025 7:38 PM EDT Aisha Munson MD LAB MICROBIOLOGY - GENERAL ORDERABLES Final Result Performing Organization Address [facility] Co de Phone Number [facility] [address] [place] [address] [phone] * (ABNORMAL) Hm Pap Smear (06/08/2022) Pathologist [facility] Pap Epithelial cell abnormality(A ) Negative for intraephithelial lesion or malignancy, Other Comment:ASCUS HPV Not Detected Undetected, Indeterminate, Quantitative, Not Detected Historical Provider HEALTH MAINTENANCE Final Result * HEPATITIS C ANTIBODY RFLX (06/14/2019 11:20 AM EST) Pathologist [facility] HEPATITIS C ANTIBODY NONREACTIVE NONREACTIVE [facility] Comment: Antibodies to HCV not detected; does not exclude early acute HCV infection. 06/14/2019 11:2 0 AM EST Maribell Rodriguez MD HISTORICAL/NON ORDERABLE LABS Fi nal Result Performing Organization Address City/[facility]/ZIP Co de Phone Number [facility] [address] * HIV AB/AG (06/14/2019 11:20 AM EST) HIV AG/AB NONREACTIVE [facility] [...] of detection of this assay. The [employer] Blower HIV Ag/Ab Combo assay result and supplemental assay results should be interpreted in conjunction with the patient's clinical presentation, history and other laboratory results. If the results are inconsistent with clinical evidence, additional testing is suggested to confirm the result. 06/14/2019 11:2 0 AM EST us Maribell Rodriguez MD HISTORICAL/NON ORDERABLE LABS Fi nal Result [facility] [address] from Last 3 Months or Most Recently Relevant to Health Maintenance [facility] C[facility] Care Teams Elevator Builder Relationship Specialty Start Date End Date Davis Lucas CNP PCP - General Family Medicine 01/14/25
--- OUTSIDE RECORDS SUMMARY | 2025-03-19 11:41 | XMS_ITS | Clinical Summary ---
Author Organization [facility] it Address [address] [place] [address] Care Team Providers Care Shroudman Name Role Phone Balaji See MD Primary Care Provider [phone] Social History Tobacco Use Types Packs/Day Years Used Date Smoking Tobacco: Never Assessed Comments Unknown Sex and Gender Information Value Date Recorded Sex Assigned at Not on file Legal Sex Female 12:59 AM EST Gender Identity Not on file Sexual Orientation Not on file Plan of Treatment Health Maintenance Due Date Last Done Comments DTaP,Tdap,and Td Vaccines (1 - Tdap) 2009 Hepatitis B Vaccines (1 of 3 - 19+ 3-dose series) 2009 Cervical Cancer Screening: P ap Smear 2011 HPV Vaccines (1 - 3-dose SCD M series) 2017 HIV Screening 05/08/2022 Hepatitis C Screening 05/08/2022 Social Influencers of Health Screening 05/08/2022 Depression Screening 06/05/2024 COVID-19 Vaccine ( - 2023-2 5 season) 2025 Influenza Vaccine (#1) 2025 05/16/2016 RSV Immunization Adult Patie nts (1 - 1-dose 75+ series) 2065 HIB Vaccines Aged Out No longer eligi ble based on patient's age to complete this topic Hepatitis A Vaccines Aged Out No long er eligible based on patient's age to complete this topic IPV Vaccines Aged Out No longer eligi ble based on patient's age to complete this topic MMR Vaccines Aged Out No longer eligi ble based on patient's age to complete this topic Meningococcal ACWY Vaccine Aged Out N o longer eligible based on patient's age to complete this topic Meningococcal B Vaccine Aged Out No l onger eligible based on patient's age to complete this topic Pneumococcal Vaccine: Pediat rics (0 to 5 Years) and At-Risk Patients (6 to 49 Years) Aged Out No longer eligi ble based on patient's age to complete this topic RSV Immunization Patients Un bishop 20 months Aged Out No longer eligible b ased on patient's age to complete this topic Varicella Vaccines Aged Out No longer eligible based on patient's age to complete this topic Care Teams Shroudman Relationship Specialty Start Date End Date Balaji See MD [address] [place] [address] PCP - General Internal Medicine 05/16/16
--- OUTSIDE RECORDS SUMMARY | 2025-03-19 11:41 | XMS_ITS | Encounter Summary ---
Author Organization [employer] Address [address] [facility] 7t [place] [address] Care Team Providers Care Chief Service Dispatcher Name Role Phone Davis Lucas CNP Primary Care Provider [phone] Reason for Visit * Reason Onset Date Comments Nurse Triage 03/19/2025 Encounter Details Date Type Department Care Team ([facility] Contact Info) Description 03/19/2025 Telephone [facility] [address] [place], [place] [phone] Davis Lucas CNP [address] [place], [place] [phone] Nurse Triage Social History Tobacco Use Types [...] encounter Miscellaneous Notes * Telephone Encounter - Ledy Rees RN - 03/19/2025 9:47 AM EDT TC placed to patient [phone] in regards to below message. Patient was recently seen on 03/05/25and had a BV swab completed which returned positive for BV, patient was tx with metronidazole and also given macrobid for reported urinary s/s. Patient reports she completed the macrobid and metronidazole last week on and on Monday she developed urinary symptoms again. Patient reports vaginal itchiness, has to apply pressure on her abdomen to initiate urination, increased urinary frequency, back pain (however does report recently started exercising as well). Patient reports vaginal area is very sensitive even my underwear bothers me . Patient also endorses groves disharge. Patient denies any fevers or foul-smelling urine. Patient reports she had intercourse after finishing the macrobid and metronidazole and it was extremely painful when it was in me . RN notes BW was ordered at last appt on 03/05/25 however patient reprots she forgot to complete the labs as she was focused on the medications. Patient advised on the importance to complete the labs orderd as some are to r/o STI's which is very important to r/o causes of her s/s. Patient reports she will come to the lab now to complete the labs ordered on 03/05/25. RN scheduled patient for an appt with Dr. Manzano today at 2:45pm for re- evaluation, potential BV swab repeated (to r/o yeast infection from antibiotics use) and potentially have urine tested. Jennifertent agreed to appt date and time. Protocol Used: Urinary Symptoms (Adult) Protocol-Based Disposition: See in Office or Video Visit Today Video visit not offered Positive Triage Questions: * Side (flank) or lower back pain present * Urinating more frequently than usual (i.e., frequency) OR new-onset of the feeling of an urgent need to urinate (i.e., urgency) * Patient wants to be seen * All higher-acuity triage questions were negative * Telephone Encounter - Lissa Bojorquez - 03/19/2025 9:27 AM EDT Symptom: Urine Symptoms Outcome: Schedule an urgent appointment (within 4 hours) or talk to a nurse or provider soon Reason: Pain when passing urine (peeing) The caller accepted this outcome. Contact pt at [phone] documented in this encounter Plan of Treatment Upcoming Encounters Date Type Department Care Team (Late st Contact Info) Description 03/19/2025 2:45 PM EDT Office Visit [facility] [address] [place] [address] Aisha Munson MD [address] [place] [address] documented as of this encounter Visit Diagnoses Not on filedocumented in this encounter Care Teams Chief Service Dispatcher Relationship Specialty Start Date End Date Davis Lucas CNP PCP - General Family Medicine 01/14/25 documented as of this encounter
--- OUTSIDE RECORDS SUMMARY | 2025-03-19 11:41 | XMS_ITS | Encounter Summary ---
Author Organization [employer] Address [address] [facility] 7t [place] [address] Care Team Providers Care Behavioral Scientist Name Role Phone Davis Lucas KAVON Primary Care Provider [phone] Encounter Details Date Type Department Care Team ([facility] Contact Info) Description 03/06/2025 Orders Only [facility] MED & PEDS [address] [place], [place] [phone] Aisha Munson MD [address] [place], [place] [phone] Bacterial vaginosis (Primary Dx) Social History Tobacco Use Types Packs/Day Years [...] as of this encounter Plan of Treatment Upcoming Encounters Date Type Department Care Team ([facility] Contact Info) Description 03/19/2025 2:45 PM EDT Office Visit [facility] [address] [place], [place] [phone] Aisha Munson MD [address] [place], [place] [phone] documented as of this encounter Visit Diagnoses Diagnosis Bacterial vaginosis- Primary Unspecified vaginitis and vulvovaginitis documented in this encounter Care Teams Behavioral Scientist Relationship Specialty Start Date End Date Davis Lucas CNP PCP - General Family Medicine 01/14/25 documented as of this encounter
[2025-03-19 14:09] LABS: Appearance Urine Clear; Glucose Urine UA Negative (Negative); PH 5.5 (5.0-9.0); Specific Gravity - Urine 1.020 (1.005-1.025); UMIC TRIGGER UACC YES
[2025-03-19 14:31] LABS: UACC Culture Trigger YES
[2025-03-20 04:34] LABS: Bacterial Vaginosis PCR NEGATIVE (Negative); Candida Group PCR NOT DETECTED (Not Detect); Candida glab krusei PCR NOT DETECTED (Not Detect); Trichomonas vaginalis PCR NOT DETECTED (Not Detect)
[2025-03-20 05:05] LABS: HIV Num 1 0.14 S/CO (0.00-0.99); ~HepC Num1 0.08 S/CO (0.00-0.79); ~Hepatitis C Antibody Nonreactive (Nonreactive)
[2025-03-20 05:05] LABS: CT PCR NOT DETECTED (Not Detect.); NG PCR NOT DETECTED (Not Detect.)
== END 2025-03-19 09:55 | disposition home or self-care (01) ==
LOC: HO.CHCLDS 09:54
PROVIDERS: Visit Provider Internal Medicine
DX: R35.0 Frequency of micturition (principal); N76.0 Acute vaginitis; Z20.2 Contact with and (suspected) exposure to infections with a predominantly sexual mode of transmission; Z11.4 Encounter for screening for human immunodeficiency virus [HIV]; Z11.59 Encounter for screening for other viral diseases
CPT/HCPCS: 36415; 81001; 81515; 86592; 86803; 87086; 87389; 87491; 87591

== ENCOUNTER 2025-04-14 11:56 | Outpatient (REF) | payer MEDICAID, SELFPAY ==
--- OUTSIDE RECORDS SUMMARY | 2025-04-14 10:45 | XMS_ITS | Encounter Summary ---
Author Organization [email or web address] Address [address] [facility] 7t [place] [address] Care Team Providers Care Director Of Financial Aid Name Role Phone LucasDavis KAVON Primary Care Provider [phone] Reason for Visit * Reason Comments Urinary Frequency Encounter Details Date Type Department Care Team ([facility] Contact Info) Description 04/14/2025 10:45 AM EST Office Visit [facility] MED & PEDS [address] [place] [address] Aisha Munson MD [address] [place] [address] Urinary frequency (Primary Dx) Social History Tobacco Use Types [...] Sign Reading Time Taken Comments Blood Pressure 144/82 04/14/2025 10:54 AM EST Pulse 62 04/14/2025 10:54 AM EST Temperature - - Respiratory Rate 20 04/14/2025 10:54 AM EST Oxygen Saturation 98% 04/14/2025 10:54 AM EST Inhaled Oxygen Concentration - - Weight 69.9 kg (154 lb) 04/14/2025 10:54 AM EST Height 157.5 cm (5' 2 ) 04/14/2025 10:54 AM EST Body Mass Index 28.17 04/14/2025 10:54 AM EST documented in this encounter Progress Notes * Aisha Munson MD - 04/14/2025 10:45 AM EST HILDA Garcia is a 35 y.o. female who presents for Urinary Frequency. Urinary Frequency Associated symptoms include frequency. Pertinent negatives include no chills or hematuria. Ms Soumya Garcia is c/o Urinary frequency and burning. Treated for a UTI and BV. No significant improvement Received Pyridium from her pharmacy w/ some transient alleviation of her symptoms. They recurred the following day. NO reported fever of any other constitutional symptoms. No gross hematuria. Problem List[1] Allergies[2] Medications Ordered Prior to Encounter[3] Review of Systems Constitutional: Negative for chills, diaphoresis and fatigue. Respiratory: Negative for cough, choking and shortness of breath. Cardiovascular: Negative for leg swelling. Genitourinary: Positive for frequency. Negative for decreased urine volume, genital sores, hematuria, pelvic pain and vaginal pain. Musculoskeletal: Negative for gait problem, joint swelling and myalgias. OBJECTIVE Vitals: 04/14/25 1054 BP: (!) 144/82 BP Location: Left arm Patient Position: Sitting BP Cuff Size: Adult Pulse: 62 Resp: 20 SpO2: 98% Weight: 154 lb (69.9 kg) Height: 5' 2 (1.575 m) Physical Exam Constitutional: General: She is not in acute distress. Appearance: Normal appearance. She is not ill-appearing, toxic-appearing or diaphoretic. Pulmonary: Effort: Pulmonary effort is normal. Abdominal: Palpations: Abdomen is soft. Neurological: Mental Status: She is alert. Assessment/Plan Assessment/Plan Diagnoses and all orders for this visit: Urinary frequency - POCT Urinalysis - Hemoglobin A1c; Future - Basic Metabolic Panel; Future - oxybutynin (Ditropan) 5 MG tablet; Take 1 tablet (5 mg) by mouth 3 times daily. Possible Irritable bladder. Advised to start Oxybutinin and to follow up w/ PCP to assess improvement in a month or so. Ms Soumya Garcia will be called w/ the results of the work up. Urged to keep her appointment w/ DR TRAN for her Glass Block Bender exam. [1] There is no problem list on [...] prior to visit. documented in this encounter Plan of Treatment Upcoming Encounters Date Type Department Care Team (Late st Contact Info) Description 05/08/2025 1:30 PM EST Office Visit [facility] MED & PEDS [address] [place] [address] Kelley Tran MD [address] [place] [address] Scheduled Orders Name Type Priority Associated Diagnoses Orde r Schedule POCT Urinalysis Point of Care Testing Routine Urinary frequency Ordered: 04/14/2025 Hemoglobin A1c Lab Routine Urinary frequency Expected: 04/14/2025 (Approximate), Expires: 04/14/2026 Basic Metabolic Panel Lab Routine Urinary frequency Expected: 04/14/2025 (Approximate), Expires: 04/14/2026 documented as of this encounter Visit Diagnoses Diagnosis Urinary frequency- Primary documented in this encounter Care Teams Director Of Financial Aid Relationship Specialty Start Date End Date Davis Lucas CNP PCP - General Family Medicine 01/14/25 documented as of this encounter
--- OUTSIDE RECORDS SUMMARY | 2025-04-14 14:26 | XMS_ITS | Encounter Summary ---
Author Organization [employer] [facility] Address 75 [facility] 7t [place] [address] Care Team Providers Care Home Comfort Advisor Name Role Phone Davis Lucas CNP Primary Care Provider [phone] Encounter Details Date Type Department Care Team (Latest Contact Info) Description 04/14/2025 Travel Social History Tobacco Use Types Packs/Day [...] Description 05/08/2025 1:30 PM EST Office Visit [facility] PEDS [address] [place] [address] Kelley Tran MD [address] [place] [address] documented as of this encounter Visit Diagnoses Not on filedocumented in this encounter Care Teams Home Comfort Advisor Relationship Specialty Start Date End Date Davis Lucas CNP PCP - General Family Medicine 01/14/25 documented as of this encounter
--- OUTSIDE RECORDS SUMMARY | 2025-04-14 14:26 | XMS_ITS | Clinical Summary ---
Author Organization [facility] it Address [address] [place] [address] Care Team Providers Care Director Acute Name Role Phone Balaji See MD Primary Care Provider [phone] Social History Tobacco Use Types Packs/Day Years [...] Depression Screening 06/05/2024 COVID-19 Vaccine ( - 2024-2 6 season) 2025 Influenza Vaccine (#1) 2025 05/16/2016 [...] age to complete this topic Care Teams Director Acute Relationship Specialty Start Date End Date Balaji See MD [place] [address] PCP - General Internal Medicine 05/16/16
--- OUTSIDE RECORDS SUMMARY | 2025-04-14 14:26 | XMS_ITS | Encounter Summary ---
Author Organization [employer] Address 75 [facility] 7t [place] [address] Care Team Providers Care Hr Coordinator Name Role Phone Davis Lucas CNP Primary Care Provider [phone] Reason for Visit * Reason Onset Date Comments Nurse Triage 04/09/2025 Encounter Details Date Type Department Care Team ([facility] Contact Info) Description 04/09/[address] [facility] PEDS [address] [place], [place] [phone] Davis Lucas CNP [address] [place] [address] Nurse Triage Social History Tobacco Use Types [...] encounter Miscellaneous Notes * Telephone Encounter - Sendy Khanna RN - 04/09/2025 2:13 PM EST TC placed to the pt in regard to reported urinary symptoms. The pt does endorse frequency, burning and malodorous urine. The pt states that she was seen earlier in the month at [facility] for similar symptoms and was only found to have trace amount of blood in UA. The pt states she has tried OTC medications to try an alleviate the burning with little relief. Pt is afebrile but has lower back pain. Pt adv ised that in order to r/o a potential UTI a UA will have to be performed. Pt given [facility] hours of operation and advised this is the easiest way to have this testing performed. Pt agreeable and will come to [facility] tommorow. Protocol Used: Urinary Symptoms (Adult) Protocol-Based Disposition: See in Office or Video Visit Today Video visit offer not recorded Positive Triage Questions: * Side (flank) or lower back pain present * Bad or foul-smelling urine * Urinating more frequently than usual (i.e., frequency) OR new-onset of the feeling of an urgent need to urinate (i.e., urgency) * Can't control passage of urine (i.e., urinary incontinence) and new-onset (< 2 weeks) or getting worse * Patient wants to be seen * Dribbling (losing urine) just after finishing urination (i.e., post-void dribbling) * All other urine symptoms * All higher-acuity triage questions were negative * Telephone Encounter - Zuly Forrester - 04/09/2025 12:32 PM EST Symptoms: Urine Symptoms, Urination Pain Outcome: Schedule an urgent appointment (within 1 hour) or talk to a nurse or provider soon Reason: Severe pain now The caller accepted this outcome. Contact pt at [phone] documented in this encounter Plan of Treatment Upcoming Encounters Date Type Department Care Team (Late st Contact Info) Description 05/08/2025 1:30 PM EST Office Visit [facility] [address] [place] [address] Kelley Tran MD [address] [place] [address] documented as of this encounter Visit Diagnoses Not on filedocumented in this encounter Care Teams Hr Coordinator Relationship Specialty Start Date End Date Davis Lucas CNP PCP - General Family Medicine 01/14/25 documented as of this encounter
--- OUTSIDE RECORDS SUMMARY | 2025-04-14 14:26 | XMS_ITS | Encounter Summary ---
Author Organization [employer] Address 75 [facility] 7t [place] [address] Care Team Providers Care Metaphysicist Name Role Phone Davis Lucas KVAON Primary Care Provider [phone] Encounter Details Date Type Department Care Team ([facility] Contact Info) Description 03/20/2025 Results Follow-Up [facility] MED & PEDS [address] [place] [address] Aisha Munson MD [address] [place], [place] [phone] POCT Urinalysis, Chlamydia/N. Gonorrhoeae RNA, TMA, Vaginal, Bacterial Vaginosis Panel Social History Tobacco Use Types Packs/Day Years [...] Encounters Date Type Department Care Team (Late Contact Info) Description 05/08/2025 1:30 PM EST Office Visit [facility] PEDS [address] [place], [place] [phone] Kelley Tran MD [address] [place], [place] [phone] documented as of this encounter Visit Diagnoses Not on filedocumented in this encounter Care Teams Metaphysicist Relationship Specialty Start Date End Date Davis Lucas CNP PCP - General Family Medicine 01/14/25 documented as of this encounter
--- OUTSIDE RECORDS SUMMARY | 2025-04-14 14:26 | XMS_ITS | Encounter Summary ---
Author Organization [employer] Address [address] [facility] [address] [place] [address] Care Team Providers Care Armhole Sewer Name Role Phone Davis Lucas KAVON Primary Care Provider [phone] Encounter Details Date Type Department Care Team ([facility] Contact Info) Description 03/06/[address] [facility] [address] [place], [place] [phone] Aisha Munson MD [address] [place], [place] [phone] Bacterial vaginosis (Primary Dx) Social History Tobacco [...] Upcoming Encounters Date Type Department Care Team ([facility] Contact Info) Description 05/08/2025 1:30 PM EST Office Visit [facility] [address] [place], [place] [phone] Kelley Tran MD [address] [place], [place] [phone] documented as of this encounter Procedures Procedure Name Priority Date/Time Associated Diagnosis Comments URINALYSIS, COMPLETE, WITH REFLEX TO CULTURE Routine 03/19/2025 10:09 AM EDT Bacterial vaginosis CULTURE, URINE, ROUTINE Routine 03/19/2025 12:00 AM EDT Bacterial vaginosis documented in this encounter Results * (ABNORMAL) Urinalysis, Complete, with Reflex to Culture (03/19/2025 10:09 AM EDT) Color Urine Yellow [facility] Appearance Urine Clear [facility] PH 5.5 5.0 - 9.0 [facility] Glucose Urine UA Negative Negative mg/dL [facility] Urine Blood Negative Negative [facility] Specific Lucas - Urine 1.020 1.005 - 1.025 [facility] Urine Protein Negative Neg-Trace mg/dL [facility] Urine Ketones Negative Negative mg/dL [facility] Nitrite Urine Negative Negative [facility] Leukocyte Esterase Urine Small (1+)(A) Negative [facility] RBC Urine 0-2 0 - 2 /HPF [facility] Urine WBC 0-5 0 - 5 /HPF [facility] Urine Squamous Epithelial Cell 3-5 0 - 2 /HPF [facility] Urine Bacteria Trace None Seen [facility] Hyaline Casts, Urine 0-2 0 - 2 /LPF [facility] 03/19/2025 10:0 9 AM EDT 03/19/2025 1:58 PM EDT Narrative [facility] - 03/19/2025 2:32 PM EDT [id number], Clean Catch us Aisha Munson MD LAB URINE ORDERABLES Final Result [facility] [address] [place] [phone] * Culture, Urine, Routine (03/19/2025 12:00 AM EDT) Urine Urine specimen obtained by clean catch procedure / Unknown 03/19/2025 03/19/2025 Comment:UACC Narrative [facility] - 03/20/2025 10:56 AM EDT Urine Culture No growth. Specimen Source: Urine clean catch us Aisha Munson MD LAB MICROBIOLOGY - GENERAL ORDERABLES Final Result [facility] [address] [place] [address] [phone] documented in this encounter Visit Diagnoses Diagnosis Bacterial vaginosis- Primary Unspecified vaginitis and vulvovaginitis documented in this encounter Care Teams Armhole Sewer Relationship Specialty Start Date End Date Davis Lucas CNP PCP - General Family Medicine 01/14/25 documented as of this encounter
--- OUTSIDE RECORDS SUMMARY | 2025-04-14 14:26 | XMS_ITS | Clinical Summary ---
Author Organization [employer] Address [address] [facility] [address] [place] [address] Care Team Providers Care Post Adoption Coordinator Name Role Phone Davis Lucas CNP Primary Care Provider [phone] Allergies No known active allergies Medications aluminum chloride (Drysol) 20 % external solution Leave on skin for 6-8 hrs; wash off next morning with soap & water. Wear a t-shirt while sleeping. Wait at least 2 hours after bathing before applying. Do not apply to wounds or broken, irritated skin. 35 mL 3 3 Active oxybutynin (Ditropan) 5 MG tabletIndicatio ns:Urinary frequency Take 1 tablet (5 mg) by mouth 3 times daily. 90 tablet 11 5 04/14/20 26 Active Active Problems No known active problems Encounters Date Type Department Care Team Description 04/14/2025 10:45 AM EST Office Visit [facility] [address] [place] [address] Aisha Munson MD Urinary frequency (Primary Dx) 04/14/2025 Travel 04/09/2025 Telephone [facility] [address] [place] [address] Davis Lucas CNP Nurse Triage 03/24/2025 Telephone [facility] [address] [place] [address] Davis Lucas CNP Results 03/20/2025 Results Follow-Up [facility] [address] [place] [address] Aisha Munson MD POCT Urinalysis, Chlamydia/N. Gonorrhoeae RNA, TMA, Vaginal, Bacterial Vaginosis Panel 03/19/2025 2:45 PM EDT Office Visit [facility] [address] [place] [address] Aisha Munson MD Acute vaginitis (Primary Dx); Urinary frequency; Dietary counseling; Exercise counseling; Overweight 03/19/2025 Travel 03/19/[address] [address] Davis Lucas CNP Nurse Triage 03/06/2025 Results Follow-Up [facility] [address] [place] [address] Ledy Rees RN POCT Urinalysis, Bacterial Vaginosis Panel 03/06/2025 Orders Only [facility] [address] [place] [address] Aisha Munson MD Bacterial vaginosis (Primary Dx) 03/05/2025 2:40 PM EDT Office Visit [facility] [address] [place] [address] Aisha Munson MD Urinary frequency (Primary Dx); Screen for STD (sexually transmitted disease) 03/05/2025 Travel 03/05/[address] [address] Davis Lucas CNP Nurse Triage from Last [...] Pulse 62 04/14/2025 10:54 AM EST Temperature 36.7 C (98.1 F) 08/23/2024 2:43 PM EDT Respiratory Rate 20 04/14/2025 10:54 AM EST Oxygen Saturation 98% 04/14/2025 10:54 AM EST Inhaled Oxygen Concentration - - Weight 69.9 kg (154 lb) 04/14/2025 10:54 AM EST Height 157.5 cm (5' 2 ) 04/14/2025 10:54 AM EST Body Mass Index 28.17 04/14/2025 10:54 AM EST Plan of Treatment Upcoming Encounters Date Type Department Care Team (Late st Contact Info) Description 05/08/2025 1:30 PM EST Office Visit [facility] [address] [place] [address] Kelley Tran MD [address] [place] [address] Health Maintenance Due Date Last Done Comments Depression Screening 1990 Lipid Panel 1990 SDOH Screening 1990 Disability Screening 1990 Alcohol/Substance Use Screening 2002 Family Planning (PISQ) 2005 HPV Vaccines (1 - 3-dose series) 2005 Hepatitis B Vaccines (1 of 3 - 19+ 3-dose series) 2009 Pneumococcal Vaccine: Pediatrics (0 to 5 Years) and At-Risk Patients (6 to 49) Years (1 of 2 - PCV) 2009 COVID-19 Vaccine ( - 2023-2 5 season) 2025 Influenza Vaccine (#1) 2025 Pap Smear 06/08/2025 06/08/2022 Tobacco Screening 04/14/2026 04/14/2025 Cervical Cancer Screening 06/08/2027 HPV/Cotest 06/08/2027 06/08/2022 DTaP/Tdap/Td Vaccines (2 - T d or Tdap) 09/15/2032 09/15/2022 Zoster Vaccines (1 of 2) 01/18/2040 RSV Patients and Patients Aged 60 years or older (1 - 1-dose 75+ series) 2065 HIV Screening Completed 03/19/2025, 06/14/2019 Hepatitis C Screening Completed 03/19/2025 , 06/14/2019 HIB Vaccines Aged Out No longer [...] Associated Diagnosis Comments POCT URINALYSIS DIPSTICK Routine 03/19/2025 4:18 PM EDT Acute vaginitis Urinary frequency BACTERIAL VAGINOSIS PANEL Routine 03/19/2025 3:37 PM EDT Acute vaginitis CHLAMYDIA/N. GONORRHOEAE RNA, TMA, UROGENITAL Routine 03/19/2025 3:37 PM EDT Acute vaginitis CULTURE, URINE, ROUTINE Routine 03/19/2025 3:37 PM EDT Acute vaginitis URINALYSIS, COMPLETE, WITH REFLEX TO CULTURE Routine 03/19/2025 10:09 AM EDT Bacterial vaginosis RPR (MONITOR) W/REFL TITER Routine 03/19/2025 9:57 AM EDT Urinary frequency HEPATITIS C AB W/REFL TO HCV RNA, QN, PCR Routine 03/19/2025 9:57 AM EDT Urinary frequency HIV 1/2 ANTIGEN/ANTIBODY, FOURTH GENERATION W/RFL Routine 03/19/2025 9:57 AM EDT Urinary frequency CULTURE, URINE, ROUTINE Routine 03/19/2025 12:00 AM EDT Bacterial vaginosis POCT URINALYSIS DIPSTICK Routine 03/05/2025 3:31 PM EDT Urinary frequency BACTERIAL VAGINOSIS PANEL Routine 03/05/2025 3:22 PM EDT Urinary frequency HM PAP/HPV Routine 06/08/2022 from Last 3 Months or Most Recently Relevant to Health Maintenance Results * (ABNORMAL) POCT Urinalysis (03/19/2025 4:18 PM EDT) Only the most recent of2 resultswithin the time period is included. Color, UA Yellow Clarity, UA Clear Glucose, UA Negative Bilirubin, UA Negative Ketones, UA Negative Spec Grav, UA 1.020 Blood, UA Positive(A) Negative, None Detected Comment:trace-intact pH, UA 6.0 Protein, UA Negative Urobilinogen, UA 0.2 Leukocytes, UA Trace Negative, Rare, Trace Comment:trace Nitrite, UA Negative Negative, None Detected Appearance, UA clear QC Media Lot # [id number] Lot# Expiration Date [id number] Urine (Urine, Random) 03/19/2025 4:18 PM EDT Aisha Munson MD POINT OF CARE TEST ENTER/ED IT ORDERABLES Final Result * Bacterial Vaginosis Panel (03/19/2025 3:37 PM EDT) Only the most recent of2 resultswithin the time period is included. TRICHOMONAS VAGINALIS DETECTION BY PCR NOT DETECTED Not Detect [facility] BACTERIAL VAGINOSIS DETECTION BY PCR NEGATIVE Negative [facility] Comment:The BV organism targ ets [...] DETECTION BY PCR NOT DETECTED Not Detect [facility] Emma glab krusei PCR NOT DETECTED Not Detect [facility] Swab Vaginal structure / Unknown 03/19/2025 3:37 PM EDT 03/19/2025 7:18 PM EDT Aisha Munson MD LAB MICROBIOLOGY - GENERAL ORDERABLES Final Result [facility] [address] [place] [phone] * Chlamydia/N. Gonorrhoeae RNA, TMA, Vaginal (03/19/2025 3:37 PM EDT) CT PCR NOT DETECTED Not Detect. [facility] Comment:A not detected test result does not exclude the possibilityof infection because test results can be affected byimproper specimen collection, concurrent antibiotic therapy,or the number of organisms in the specimen which may bebelow the sensitivity of the test. As with many diagnostictests, results from the Xpert CT/NG assay should beinterpreted in conjunction with other laboratory andclinical data available to the clinician.Xpert CT/NG performance has not been evaluated in patientsless than 14 years of age. The assay should not be used forthe evaluationof suspected sexual abuse or for other medico-legalindications. Additional testing is recommended in anycircumstance when false positive or false negative resultscould lead to adverse medical, social or psychologicalconsequences. NG PCR NOT DETECTED Not Detect. [facility] Comment:A not detected test result does not exclude the possibilityof infection because test results can be affected byimproper specimen collection, concurrent antibiotic therapy,or the number of organisms in the specimen which may bebelow the sensitivity of the test. As with many diagnostictests, results from the Xpert CT/NG assay should beinterpreted in conjunction with other laboratory andclinical data available to the clinician.Xpert CT/NG performance has not been evaluated in patientsless than 14 years of age. The assay should not be used forthe evaluationof suspected sexual abuse or for other medico-legalindications. Additional testing is recommended in anycircumstance when false positive or false negative resultscould lead to adverse medical, social or psychologicalconsequences. Swab (Vaginal Swab) 03/19/2025 3:37 PM EDT 03/19/2025 7:18 PM EDT Aisha Munson MD LAB MICROBIOLOGY - GENERAL ORDERABLES Final Result Performing Organization Address City/[facility] Co de Phone Number [facility] [address] [place] [phone] * Culture, Urine, Routine (03/19/2025 3:37 PM EDT) Only the most recent of2 resultswithin the time period is included. Urine Urine specimen obtained by clean catch procedure / Unknown 03/19/2025 3:37 PM EDT 03/19/2025 6:41 PM EDT Comment:UACC Narrative [facility] - 03/21/2025 10:22 AM EDT Urine Culture No growth. Specimen Source: Urine clean catch us Aisha Munson MD LAB MICROBIOLOGY - GENERAL ORDERABLES Final Result Performing Organization Address City/[facility] Co de Phone Number [facility] [address] [place] [phone] * (ABNORMAL) Urinalysis, Complete, with Reflex to Culture (03/19/2025 10:09 AM EDT) Color Urine Yellow [facility] Appearance Urine Clear [facility] PH 5.5 5.0 - 9.0 [facility] Glucose Urine UA Negative Negative mg/dL [facility] Urine Blood Negative Negative [facility] Specific [place] - Urine 1.020 1.005 - 1.025 [facility] Urine Protein Negative Neg-Trace mg/dL [facility] Urine Ketones Negative Negative mg/dL [facility] Nitrite Urine Negative Negative [facility] Leukocyte Esterase Urine Small (1+)(A) Negative [facility] RBC Urine 0-2 0 - 2 /HPF [facility] Urine WBC 0-5 0 - 5 /HPF [facility] Urine Squamous Epithelial Cell 3-5 0 - 2 /HPF [facility] Urine Bacteria Trace None Seen [facility] Hyaline Casts, Urine 0-2 0 - 2 /LPF [facility] 03/19/2025 10:0 9 AM EDT 03/19/2025 1:58 PM EDT Narrative [facility] - 03/19/2025 2:32 PM EDT [id number], Clean Catch us Aisha Munson MD LAB URINE ORDERABLES Final Result Performing Organization Address [facility]/ZIP Co de Phone Number [facility] [address] [place] [phone] * Hepatitis C Antibody with Reflex to HCV, RNA, Quantitative, Real-Time PCR (03/19/2025 9:57 AM EDT) Hepatitis C Antibody Nonreactive Nonreactive [facility] Comment:Antibodies to HCV no t detected; does not exclude early acuteHCV infection. Blood Venous blood specimen / Unknown 03/19/2025 9:57 AM EDT 03/19/2025 2:07 PM EDT us Aisha Munson MD LAB BLOOD ORDERABLES Final Result Performing Organization Address [facility]/ZIP Co de Phone Number [facility] [address] [place] [phone] * RPR (Monitor) with Reflex to??Titer (03/19/2025 9:57 AM EDT) RPR (Monitor) w/Refl Titer NON-REACTI VE NON-REACT BETTYE [facility] Comment:THIS TEST WAS PERFOR MED AT:[employer] [place] [phone] MUHAMMAD MD Rapid Plasma Reagin Ab Titer TNP [facility] Blood Venous blood specimen / Unknown 03/19/2025 9:57 AM EDT 03/19/2025 2:07 PM EDT us Aisha Munson MD LAB BLOOD ORDERABLES Final Result Performing Organization Address City/[facility]/ZIP Co de Phone Number [facility] [address] [place] [phone] * HIV-1/2 Antigen and Antibodies, Fourth Generation, with Reflexes (03/19/2025 9:57 AM EDT) HIV AB/AG Nonreactive Nonreactive [facility] Comment:HIV-1 p24 Ag and/or HIV-1/HIV-2 Ab not detected.A test result that is nonreactive does not exclude thepossibility of exposure to or infection with HIV-1 and/orHIV-2. Nonreactive results in this assay for individualswith prior exposure to HIV-1 and/or HIV-2 may be due toantigen and antibody levels that are below the limit ofdetection of this assay.The [employer] HIV Ag/Ab Combo assay result andsupplemental assay results should be interpreted inconjunction with the patient's clinical presentation,history and other laboratory results. If the results areinconsistent with clinical evidence, additional testing issuggested to confirm the result. Blood Venous blood specimen / Unknown 03/19/2025 9:57 AM EDT 03/19/2025 2:07 PM EDT us Aisha Munson MD LAB BLOOD ORDERABLES Final Result Performing Organization Address City/[facility]/ZIP Co de Phone Number [facility] [address] [place] [address] [phone] * (ABNORMAL) Hm Pap Smear (06/08/2022) Pap Epithelial cell abnormality(A ) Negative for intraephithelial lesion or malignancy, Other Comment:ASCUS HPV Not Detected Undetected, Indeterminate, Quantitative, Not Detected us Historical Provider HEALTH MAINTENANCE Final Result from Last 3 Months or Most Recently Relevant to Health Maintenance [facility] Care Teams Post Adoption Coordinator Relationship Specialty Start Date End Date Davis Lucas CNP PCP - General Family Medicine 01/14/25
[2025-04-14 15:08] LABS: Anion Gap 12 (12-20); Blood Urea Nitrogen 8 mg/dL (9-16); Calcium 9.4 mg/dL (8.4-10.2); Carbon Dioxide 25 mmol/L (22-29); Chloride 106 mmol/L (96-108); Estimated Glomerular Filt Rate > 60; Potassium 3.6 mmol/L (3.3-5.1); Sodium 139 mmol/L (135-145)
== END 2025-04-14 11:57 | disposition home or self-care (01) ==
LOC: HO.CHCLDS 11:56
PROVIDERS: Visit Provider Internal Medicine
DX: R35.0 Frequency of micturition (principal)
CPT/HCPCS: 36415; 80048; 83036

== ENCOUNTER 2025-05-05 16:24 | Outpatient (REF) | payer MEDICAID, SELFPAY ==
--- OUTSIDE RECORDS SUMMARY | 2025-05-05 09:20 | XMS_ITS | Encounter Summary ---
Author Organization [employer] Address [address] [facility] [address] [place] [address] Care Team Providers Care Elevator Troubleshooter Name Role Phone Davis Lucas CNP Primary Care Provider [phone] Reason for Visit * Reason Comments Abdominal Pain Encounter Details Date Type Department Care Team ([facility] Contact Info) Description 05/05/2025 9:20 AM EST Office Visit [facility] [address] [place] [address] Vidal Newton MD [address] [place] [address] Dysuria (Primary Dx); Suprapubic pain; Vaginal discharge; [...] Yesterday threw away all her synthetic underwear. History of appendectomy. Lives with 3 children. [...] - POCT urinalysis dipstick manually resulted (CPT 09290) - POCT , urine manually resulted - [...] 05/08/2025 1:30 PM EST Office Visit [facility] [address] [place] [address] Kelley Tran MD [address] [place] [address] 05/13/2025 9:15 AM EST Office Visit [facility] [address] [place] [address] Davis Lucas CNP [address] [place] [address] Scheduled Orders Name Type Priority Associated Diagnoses Orde r Schedule Bacterial Vaginosis Microbiology Routine Elevated blood pressure reading in office without diagnosis of hypertension Ordered: 05/05/2025 Chlamydia/N. Gonorrhoeae RNA, TMA, Urogenitial Microbiology Routine Elevated blood pressure reading in office without diagnosis of hypertension Ordered: 05/05/2025 documented as of this encounter Procedures Procedure [...] (ABNORMAL) POCT urinalysis dipstick manually resulted (CPT 37956) (05/05/2025 10:34 AM EST) Color, UA Yellow [...] CARE TEST ENTER/EDIT OR DERABLES Final Result documented in this encounter Visit Diagnoses Diagnosis Dysuria- Primary Suprapubic pain Abdominal pain, other specified site Vaginal discharge Leukorrhea, not specified as infective Elevated blood pressure reading in office without diagnosis of hypertension documented in this encounter Care Teams Elevator Troubleshooter Relationship Specialty Start Date End Date Davis Lucas CNP PCP - General Family Medicine 01/14/25 documented as of this encounter
--- OUTSIDE RECORDS SUMMARY | 2025-05-05 18:45 | XMS_ITS | Clinical Summary ---
Author Organization [employer] Address [address] [facility] 7t [place] [address] Care Team Providers Care Evening Or Night Nurse Supervisor Name Role Phone Davis Lucas VARNISHER Primary Care Provider [phone] Allergies No known active allergies Medications aluminum [...] 90 tablet 11 5 04/14/20 26 Active acetaminophen (Tylenol) 500 MG tablet Take 2 tablets (1,000 mg) by mouth every 6 (six) hours if needed for moderate pain or fever for up to 25 doses. 50 tablet 05/05/2025 11:14 AM EST 5 Active Blood Pressure kit 1 each 2 times daily. 1 kit 5 05/05/20 26 Active metroNIDAZOLE (Flagyl) 500 MG tablet Take 1 tablet (500 mg) by mouth after breakfast and after evening meal for 7 days. 14 tablet 05/05/2025 11:14 AM EST 5 05/12/20 25 Active Active Problems Problem Noted Date Diagnosed Date S/P appendectomy 05/05/2025 Encounters Date Type Department Care Team Description 05/05/2025 9:20 AM EST Office Visit [facility] [address], [place] [phone] Vidal Newton MD Dysuria (Primary Dx); Suprapubic pain; Vaginal discharge; Elevated blood pressure reading in office without diagnosis of hypertension 05/05/2025 Travel 04/28/2025 Patient Outreach [facility] [address] [place] [address] Davis Lucas CNP Pre-visit Planning ([facility] unable to reach [facility]) 04/14/2025 10:45 AM EST Office Visit [facility] [address] [place] [address] Aisha Munson MD Urinary frequency (Primary Dx) 04/14/2025 Results Follow-Up [facility] [address] [place] [address] Aisha Munson MD Hemoglobin A1c, Basic Metabolic Panel 04/14/2025 Travel 04/09/2025 Telephone [facility] [address] [place] [address] Davis Lucas CNP Nurse Triage 03/24/[address] [address] Davis Lucas CNP Results 03/20/2025 Results Follow-Up [facility] [address] [place] [address] Aisha Munson MD POCT Urinalysis, Chlamydia/N. Gonorrhoeae RNA, TMA, Vaginal, Bacterial Vaginosis Panel 03/19/2025 2:45 PM EDT Office Visit [facility] [address] [place] [address] Aisha Munson MD Acute vaginitis (Primary Dx); Urinary frequency; Dietary counseling; Exercise counseling; Overweight 03/19/2025 Travel 03/19/[address] [address] Davis Lcuas CNP Nurse Triage 03/06/2025 Results Follow-Up [facility] [address] [place] [address] Ledy Rees RN POCT Urinalysis, Bacterial Vaginosis Panel 03/06/2025 Orders Only [facility] [address] [place] [address] Aisha Munson MD Bacterial vaginosis (Primary Dx) 03/05/2025 2:40 PM EDT Office Visit [facility] [address] [place] [address] Aisha Munson MD Urinary frequency (Primary Dx); Screen for STD (sexually transmitted disease) 03/05/2025 Travel 03/05/2025 Telephone [facility] [address] [place] [address] Davis Lucas CNP Nurse Triage from Last [...] (158 lb) 05/05/2025 9:24 AM EST Height 157.5 cm (5' 2 ) 04/14/2025 10:54 AM EST Body Mass Index 28.9 04/14/2025 10:54 AM EST Plan of Treatment Upcoming Encounters Date Type Department Care Team (Late st Contact Info) Description 05/08/2025 1:30 PM EST Office Visit [facility] [address] [place] [address] Kelley Tran MD [address] [place] [address] 05/13/2025 9:15 AM EST Office Visit [facility] [address] [place] [address] Lance Júniorabdifatah, KAVON [address] [place] [address] Health Maintenance Due Date Last Done Comments Depression Screening 1990 SDOH Screening 1990 Disability Screening 1990 Alcohol/Substance Use Screening 2002 Family Planning (PISQ) 2005 HPV Vaccines (1 - 3-dose series) 2005 Hepatitis B Vaccines (1 of 3 - 19+ 3-dose series) 2009 COVID-19 Vaccine (2024-2 6 season) 2025 Influenza Vaccine (#1) 2025 Pap Smear 06/08/2025 06/08/2022 Tobacco Screening 05/05/2026 05/05/2025 Cervical Cancer Screening 06/08/2027 HPV/Cotest 06/08/2027 06/08/2022 [...] age to complete this topic Pneumococcal Vaccine: Pediatrics (0 to 5 Years) and At-Risk Patients (6 to 49) Years Aged Out No longer eligible b ased [...] reading in office without diagnosis of hypertension BASIC METABOLIC PANEL Routine 04/14/2025 11:57 AM EST Urinary frequency HEMOGLOBIN A1C Routine 04/14/2025 11:57 AM EST Urinary frequency POCT URINALYSIS DIPSTICK Routine 03/19/2025 4:18 PM [...] Relevant to Health Maintenance Results * POCT , urine manually resulted (05/05/2025 10:34 AM EST) Preg Test, Ur Negative Negative, Indeterminate, None Detected, Trace, 3+, Specimen unsatisfactory for evaluation, Weakly Positive, 1+, 2+ Urine 05/05/2025 10:3 4 AM EST us Vidal Newton MD POINT OF CARE TEST ENTER/EDIT OR DERABLES Final Result * (ABNORMAL) POCT urinalysis dipstick manually resulted (CPT 47654) (05/05/2025 10:34 AM EST) Only the most recent of3 resultswithin the time period is included. Color, [...] TEST ENTER/EDIT OR DERABLES Final Result * Hemoglobin A1c (04/14/2025 11:57 AM EST) Hemoglobin A1c 5.3 <6.0 % [facility] Comment:Hemoglobin A1C Refer ence Range Adults: 4.8 - 6.0 % Non diabetic: < 6.0 % Goal: < 7.0 %Additional Action Suggested: > 8.0 %Note: Hemoglobin A1c results are invalid for patients with abnormal amounts of HbF. Blood transfusions may impact the HbA1c concentration in the patient sample. Estimated Average Glucose 105 mg/dL [facility] Comment:eAG = Estimated ave rage glucose which is %A1C expressed asaverage glucose, using the formula of the [id number] Glucose study (ADAG), Diabetes Care, Vol.31,#8,Jan. 2007 Blood Venous blood specimen / Unknown 04/14/2025 11:57 AM EST 04/14/2025 2:20 PM EST us Aisha Munson MD LAB BLOOD ORDERABLES Final Result [facility] [address] [place] [phone] * (ABNORMAL) Basic Metabolic Panel (04/14/2025 11:57 AM EST) Sodium 139 135 - 145 mmol/L [facility] Potassium 3.6 3.3 - 5.1 mmol/L [facility] Chloride 106 96 - 108 mmol/L [facility] Carbon Dioxide 25 22 - 29 mmol/L [facility] Anion Gap 12 12 - 20 [facility] Urea Nitrogen (BUN) 8(L) 9 - 16 mg/dL [facility] Creatinine, Serum 0.63 0.5 - 1.4 mg/dL [facility] Estimated Glomerular Filt Rate >60 [facility] Comment:Chronic Kidney Disea se: Estimated GFR < 60 mL/min/1.62n2Wcxvur Kidney Disease: Estimated GFR < 15 mL/min/1.73m2 Glucose 86 60 - 115 mg/dL [facility] Calcium 9.4 8.4 - 10.2 mg/dL [facility] Blood Venous blood specimen / Unknown 04/14/2025 11:57 AM EST 04/14/2025 2:21 PM EST us Aisha Munson MD LAB BLOOD ORDERABLES Final Result Performing Organization Address [facility] de Phone Number [facility] [address] [place] [phone] * Bacterial Vaginosis Panel (03/19/2025 3:37 PM EDT) Only the most recent of2 resultswithin the time period is included. [facility] TRICHOMONAS VAGINALIS DETECTION BY PCR NOT DETECTED Not Detect [facility] BACTERIAL VAGINOSIS DETECTION BY PCR NEGATIVE Negative [facility] Comment:The BV organism targ ets [...] BY PCR NOT DETECTED Not Detect [facility] Emma glab krusei PCR NOT DETECTED Not Detect [facility] Swab Vaginal structure / Unknown 03/19/2025 3:37 PM EDT 03/19/2025 7:18 PM EDT us Aisha Munson MD LAB MICROBIOLOGY - GENERAL ORDERABLES Final Result Performing Organization Address [facility] Co de Phone Number [facility] [address] [place] [phone] * Chlamydia/N. Gonorrhoeae RNA, TMA, Vaginal (03/19/2025 3:37 PM EDT) [facility] CT PCR NOT DETECTED Not Detect. [facility] Comment:A not detected test result [...] psychologicalconsequences. NG PCR NOT DETECTED Not Detect. [facility] Comment:A not detected test result [...] LAB MICROBIOLOGY - GENERAL ORDERABLES Final Result [facility] [address] [place] [phone] * Culture, Urine, Routine (03/19/2025 3:37 PM EDT) Only the most recent of2 resultswithin the time period is included. Urine Urine specimen obtained by clean catch procedure / Unknown 03/19/2025 3:37 PM EDT 03/19/2025 6:41 PM EDT Comment:UACC Narrative [facility] - 03/21/2025 10:22 AM EDT Urine Culture No growth. Specimen Source: Urine clean catch us Aisha Munson MD LAB MICROBIOLOGY - GENERAL ORDERABLES Final Result Performing Organization Address [facility]/ZIP Co de Phone Number [facility] [address] [place] [address] [phone] * (ABNORMAL) Urinalysis, Complete, with Reflex to Culture (03/19/2025 10:09 AM EDT) Color Urine Yellow [facility] Appearance Urine Clear [facility] PH 5.5 5.0 - 9.0 [facility] Glucose Urine UA Negative Negative mg/dL [facility] Urine Blood Negative Negative [facility] Specific Stewart - Urine 1.020 1.005 - 1.025 [facility] Urine Protein Negative Neg-Trace mg/dL [facility] Urine Ketones Negative Negative mg/dL [facility] Nitrite Urine Negative Negative [facility] Leukocyte Esterase Urine Small (1+)(A) Negative [facility] RBC Urine 0-2 0 - 2 /HPF [facility] Urine WBC 0-5 0 - 5 /HPF [facility] Urine Squamous Epithelial Cell 3-5 0 - 2 /HPF [facility] Urine Bacteria Trace None Seen [facility] Hyaline Casts, Urine 0-2 0 - 2 /LPF [facility] 03/19/2025 10:0 9 AM EDT 03/19/2025 1:58 PM EDT Narrative [facility] - 03/19/2025 2:32 PM EDT [id number], Clean Catch us Aisha Munson MD LAB URINE ORDERABLES Final Result Performing Organization Address [facility] Co de Phone Number [facility] [address] [place] [address] [phone] * Hepatitis C Antibody with Reflex to HCV, RNA, Quantitative, Real-Time PCR (03/19/2025 9:57 AM EDT) Pathologist [facility] Hepatitis C Antibody Nonreactive Nonreactive [facility] Comment:Antibodies to HCV no t detected; does not exclude early acuteHCV infection. Blood Venous blood specimen / Unknown 03/19/2025 9:57 AM EDT 03/19/2025 2:07 PM EDT Aisha Munson MD LAB BLOOD ORDERABLES Final Result Performing Organization Address [facility] de Phone Number [facility] [address] [place] [phone] * RPR (Monitor) with Reflex to??Titer (03/19/2025 9:57 AM EDT) [facility] RPR (Monitor) w/Refl Titer NON-REACTI VE NON-REACT BETTYE [facility] Comment:THIS TEST WAS PERFOR MED AT:[facility] [address] [phone] MUHAMMAD MD Rapid Plasma Reagin Ab Titer TNP [facility] Blood Venous blood specimen / Unknown 03/19/2025 9:57 AM EDT 03/19/2025 2:07 PM EDT us Aisha Munson MD LAB BLOOD ORDERABLES Final Result Performing Organization Address [facility] de Phone Number [facility] [address] [place] [phone] * HIV-1/2 Antigen and Antibodies, Fourth Generation, with Reflexes (03/19/2025 9:57 AM EDT) [facility] HIV AB/AG Nonreactive Nonreactive [facility] Comment:HIV-1 p24 Ag and/or HIV-1/HIV-2 Ab not detected.A test result that is nonreactive does not exclude thepossibility of exposure to or infection with HIV-1 and/orHIV-2. Nonreactive results in this assay for individualswith prior exposure to HIV-1 and/or HIV-2 may be due toantigen and antibody levels that are below the limit ofdetection of this assay.The Simph[employer]ity HIV Ag/Ab Combo assay result andsupplemental assay results should be interpreted inconjunction with the patient's clinical presentation,history and other laboratory results. If the results areinconsistent with clinical evidence, additional testing issuggested to confirm the result. Blood Venous blood specimen / Unknown 03/19/2025 9:57 AM EDT 03/19/2025 2:07 PM EDT us Aisha Munson MD LAB BLOOD ORDERABLES Final Result [facility] [address] [place] [phone] * (ABNORMAL) Pap Smear (06/08/2022) Pap Epithelial cell abnormality(A ) Negative for intraephithelial lesion or malignancy, Other Comment:ASCUS HPV Not Detected Undetected, Indeterminate, Quantitative, Not Detected Historical Provider HEALTH MAINTENANCE Final Result from Last 3 Months or Most Recently Relevant to Health Maintenance Insurance [facility] C[address] NEELAM Curiel [id number] Care Teams Evening Or Night Nurse Supervisor Relationship Specialty Start Date End Date Davis Lucas CNP PCP - General Family Medicine 01/14/25
--- OUTSIDE RECORDS SUMMARY | 2025-05-05 18:45 | XMS_ITS | Encounter Summary ---
Author Organization [employer] Address 75 [facility] 7 [place] [address] Care Team Providers Care Magazine Journalist Name Role Phone Davis Lucas CNP Primary Care Provider +1 [phone] Encounter Details Date Type Department Care Team ([facility] Contact Info) Description 03/06/2025 Orders Only [facility] MED & PEDS [address] [place] [address] Aisha Munson MD 505 [place] [address] Bacterial vaginosis (Primary Dx) Social History Tobacco [...] Upcoming Encounters Date Type Department Care Team ([facility] Contact Info) Description 05/08/2025 1:30 PM EST Office Visit [facility] MED & PEDS [address] [place] [address] Kelley Tran MD [address] [place] [address] 05/13/2025 9:15 AM EST Office Visit [facility] MED & PEDS [address] [place] [address] Davis Lucas CNP 505 [place] [address] documented as of this encounter Procedures Procedure Name Priority Date/Time Associated Diagnosis Comments URINALYSIS, COMPLETE, WITH REFLEX TO CULTURE Routine 03/19/2025 10:09 AM EDT Bacterial vaginosis CULTURE, URINE, ROUTINE Routine 03/19/2025 12:00 AM EDT Bacterial vaginosis documented in this encounter Results * (ABNORMAL) Urinalysis, Complete, with Reflex to Culture (03/19/2025 10:09 AM EDT) Color Urine Yellow [facility] Appearance Urine Clear [facility] PH 5.5 5.0 - 9.0 [facility] Glucose Urine UA Negative Negative mg/dL [facility] Urine Blood Negative Negative [facility] Specific [place] - Urine 1.020 1.005 - 1.025 [facility] Urine Protein Negative Neg-Trace mg/dL [facility] Urine Ketones Negative Negative mg/dL [facility] Nitrite Urine Negative Negative [facility] Leukocyte Esterase Urine Small (1+)(A) Negative [facility] RBC Urine 0-2 0 - 2 /HPF [facility] Urine WBC 0-5 0 - 5 /HPF [facility] Urine Squamous Epithelial Cell 3-5 0 - 2 /HPF [facility] Urine Bacteria Trace None Seen [facility] Hyaline Casts, Urine 0-2 0 - 2 /LPF [facility] 03/19/2025 10:0 9 AM EDT 03/19/2025 1:58 PM EDT Narrative [facility] - 03/19/2025 2:32 PM EDT [id number], Clean Catch us Aisha Munson MD LAB URINE ORDERABLES Final Result [facility] [address] [place] [address] [phone] * Culture, Urine, Routine (03/19/2025 12:00 AM EDT) Urine Urine specimen obtained by clean catch procedure / Unknown 03/19/2025 03/19/2025 Comment:UACC Narrative [facility] - 03/20/2025 10:56 AM EDT Urine Culture No growth. Specimen Source: Urine clean catch us Aisha Munson MD LAB MICROBIOLOGY - GENERAL ORDERABLES Final Result [facility] [address] [place] [address] [phone] documented in this encounter Visit Diagnoses Diagnosis Bacterial vaginosis- Primary Unspecified vaginitis and vulvovaginitis documented in this encounter Care Teams Magazine Journalist Relationship Specialty Start Date End Date Davis Lucas CNP PCP - General Family Medicine 01/14/25 documented as of this encounter
--- OUTSIDE RECORDS SUMMARY | 2025-05-05 18:45 | XMS_ITS | Encounter Summary ---
Author Organization [employer] Address 75 [facility] 7 [place] [address] Care Team Providers Care Production Maintenance Mechanic Name Role Phone Davis Lucas CNP Primary Care Provider [phone] Encounter Details Date Type Department Care Team ([facility] Contact Info) Description 04/14/2025 Results Follow-Up [facility] MED & PEDS [address] [place] [address] Aisha Munson MD 505 [place] [address] Hemoglobin A1c, Basic Metabolic Panel Social History Tobacco Use Types Packs/Day [...] Upcoming Encounters Date Type Department Care Team ([facility] Contact Info) Description 05/08/2025 1:30 PM EST Office Visit [facility] MED & PEDS [address] [place] [address] Kelley Tran MD [address] [place] [address] 05/13/2025 9:15 AM EST Office Visit [facility] MED & PEDS [address] [place] [address] Davis Lucas CNP [address] [place] [address] documented as of this encounter Visit Diagnoses Not on filedocumented in this encounter Care Teams Production Maintenance Mechanic Relationship Specialty Start Date End Date Davis Lucas CNP PCP - General Family Medicine 01/14/25 documented as of this encounter
--- OUTSIDE RECORDS SUMMARY | 2025-05-05 18:45 | XMS_ITS | Encounter Summary ---
Author Organization [employer] Address 75 [facility] 7t [place] [address] Care Team Providers Care Director Pharmacy Services Name Role Phone Davis Lucas CNP Primary Care Provider [phone] [phone] Encounter Details Date Type Department Care Team (Latest Contact Info) Description 05/05/2025 Travel Social History Tobacco Use Types Packs/Day [...] Description 05/08/2025 1:30 PM EST Office Visit [facility] MED & PEDS [address] [place] [address] Kelley Tran MD [address] [place] [address] 05/13/2025 9:15 AM EST Office Visit [facility] MED [facility] PEDS [address] [place] [address] Davis Lucas CNP 505 [place] [address] documented as of this encounter Visit Diagnoses Not on filedocumented in this encounter Care Teams Director Pharmacy Services Relationship Specialty Start Date End Date Davis Lucas CNP PCP - General Family Medicine 01/14/25 documented as of this encounter
--- OUTSIDE RECORDS SUMMARY | 2025-05-05 18:45 | XMS_ITS | Clinical Summary ---
Author Organization [facility] [facility] ity Address [address] [place] [address] Care Team Providers Care Chief Bank Examiner Name Role Phone Balaji See MD Primary Care Provider [phone] Social History Tobacco Use Types Packs/Day Years [...] (1 - 3-dose SCD M series) 2017 Depression Screening 06/05/2024 COVID-19 Vaccine (1 - 2024-2 6 season) 2025 Influenza Vaccine [...] age to complete this topic Care Teams Chief Bank Examiner Relationship Specialty Start Date End Date Balaji See MD [address] [place] [address] PCP - General Internal Medicine 05/16/16
--- OUTSIDE RECORDS SUMMARY | 2025-05-05 18:45 | XMS_ITS | Encounter Summary ---
Author Organization [employer] Address 75 [facility] 7t [place] [address] Care Team Providers Care Store Person Name Role Phone Davis Lucas CNP Primary Care Provider [phone] Encounter Details Date Type Department Care Team ([facility] Contact Info) Description 03/20/2025 Results Follow-Up [facility] MED & PEDS [address] [place], [place] [phone] Aisha Munson MD [address] [place], [place] [phone] POCT Urinalysis, Chlamydia/N. Gonorrhoeae RNA, TMA, Vaginal, [...] Upcoming Encounters Date Type Department Care Team ([facility] Contact Info) Description 05/08/2025 1:30 PM EST Office Visit [facility] MED & PEDS [address] [place], [place] [phone] Kelley Tran MD [address] [place], [place] [phone] 05/13/2025 9:15 AM EST Office Visit [facility] MED & PEDS [address] [place] [address] Davis Lucas CNP 505 [place] [address] documented as of this encounter Visit Diagnoses Not on filedocumented in this encounter Care Teams Store Person Relationship Specialty Start Date End Date Davis Lucas CNP PCP - General Family Medicine 01/14/25 documented as of this encounter
[2025-05-06 05:29] LABS: Bacterial Vaginosis PCR NEGATIVE (Negative); Candida Group PCR NOT DETECTED (Not Detect); Candida glab krusei PCR NOT DETECTED (Not Detect); Trichomonas vaginalis PCR NOT DETECTED (Not Detect)
[2025-05-06 09:10] LABS: CT PCR NOT DETECTED (Not Detect.); NG PCR NOT DETECTED (Not Detect.)
== END 2025-05-05 16:25 | disposition home or self-care (01) ==
LOC: HO.LNP 16:24
PROVIDERS: Visit Provider Emergency Medicine
DX: Z20.2 Contact with and (suspected) exposure to infections with a predominantly sexual mode of transmission (principal); R03.0 Elevated blood-pressure reading, without diagnosis of hypertension
CPT/HCPCS: 81515; 87491; 87591

== ENCOUNTER 2025-05-08 18:37 | Outpatient (REF) | payer MEDICAID, SELFPAY ==
--- OUTSIDE RECORDS SUMMARY | 2025-05-05 09:20 | XMS_ITS | Encounter Summary ---
Author Organization [employer] Address [address] [facility] [address] [place] [address] Care Team Providers Care Carbon Paper Coating Machine Setter Name Role Phone Davis Lucas CNP Primary Care Provider [phone] Reason for Visit * Reason Comments Abdominal Pain Encounter Details Date Type Department Care Team ([facility] Contact Info) Description 05/05/2025 9:20 AM EST Office Visit [facility] [address] [place] [address] Vidal Newton MD [address] [place] [address] Dysuria (Primary Dx); Suprapubic pain; Vaginal discharge; Elevated blood pressure reading in office without diagnosis of hypertension Social History Tobacco Use Types Packs/Day Years Used Date Smoking Tobacco: Former Cigarettes Smokeless Tobacco: Never Comments:Smokes 5 cig [...] Sign Reading Time Taken Comments Blood Pressure 141/89 05/05/2025 9:24 AM EST Pulse 85 05/05/2025 9:24 AM EST Temperature 36.7 C (98 F) 05/05/2025 9:24 AM EST Respiratory Rate 16 05/05/2025 9:24 AM EST Oxygen Saturation 99% 05/05/2025 9:24 AM EST Inhaled Oxygen Concentration - - Weight 71.7 kg (158 lb) 05/05/2025 9:24 AM EST Height - - Body Mass Index 28.9 04/14/2025 10:54 AM EST documented in this encounter Progress Notes * Vidal Newton MD - 05/05/2025 9:20 AM EST Subjective Patient ID: Soumya Garcia is a 35 y.o. female. HPI Soumya had recurrence of urinary frequency, itching when urinating, vaginal discharge, suprapubicdiscomfort, nausea without vomiting. Symptoms first started years ago, comes and goes, and she states is usually caused by BV. She thinks that symptoms may also be because of possible allergy to synthetic underwear. Yesterday threw away all her synthetic underwear. Denies fever, chills, n/v, flank pain. Last 3 urine cultures going back to 05/24/2023 all had no growth. History of appendectomy. Lives with 3 children. LMP=2 weeks ago. Has Nexplanon and partner uses condoms. Not employed. Quit smoking 1 month ago. The following portions of the chart were reviewed this encounter and updated as appropriate: Review of Systems Constitutional: Negative for fever. Respiratory: Negative for shortness of breath. Cardiovascular: Negative for chest pain. Gastrointestinal: Positive for abdominal pain. Genitourinary: Positive for dysuria, frequency and vaginal discharge. Skin: Negative for rash. Neurological: Negative for headaches. Objective Physical Exam Constitutional: Appearance: Normal appearance. HENT: Left Ear: Ear canal normal. Nose: Nose normal. Eyes: Conjunctiva/sclera: Conjunctivae normal. Pupils: Pupils are equal, round, and reactive to light. Cardiovascular: Rate and Rhythm: Normal rate and regular rhythm. Heart sounds: No murmur heard. Pulmonary: Effort: Pulmonary effort is normal. Breath sounds: Normal breath sounds. Abdominal: General: Abdomen is flat. Palpations: Abdomen is soft. Tenderness: There is abdominal tenderness (mild suprapubic). There is no right CVA tenderness, leftCVA tenderness, guarding or rebound. Musculoskeletal: General: Normal range of motion. Cervical back: No tenderness. Skin: Findings: No rash. Neurological: Mental Status: She is alert. Gait: Gait is intact. Psychiatric: Mood and Affect: Mood normal. Behavior: Behavior normal. Procedures Assessment/Plan Diagnoses and all orders for this visit: Dysuria Urine C&S pending. Will call patient with results. Return to clinic if not improving Suprapubic pain Urine C&S, self vaginal swabs for BV, CT/GC pending. Will call patient with results. Prescribed acetaminophen. Return to clinic if not improving Vaginal discharge As above. Prescribed Flagyl tablets. Referred to Gina Dickson because of the patient's several year history of recurrent symptoms. Elevated blood pressure reading in office without diagnosis of hypertension Prescribed home BP monitor. Reviewed BP parameters, given written BP log that includes BP parameters, to keep daily. Call if BP readings are elevated. - POCT urinalysis dipstick manually resulted (CPT 01315) - POCT , urine manually resulted - Bacterial Vaginosis - Chlamydia/N. Gonorrhoeae RNA, TMA, Urogenitial Other orders - acetaminophen (Tylenol) 500 MG tablet; Take 2 tablets (1,000 mg) by mouth every 6 (six) hours if needed for moderate pain or fever for up to 25 doses. - Blood Pressure kit; 1 each 2 times daily. - metroNIDAZOLE (Flagyl) 500 MG tablet; Take 1 tablet (500 mg) by mouth after breakfast and after evening meal for 7 days. documented in this encounter Plan of Treatment Upcoming Encounters Date Type Department Care Team (Late st Contact Info) Description 05/13/2025 9:15 AM EST Office Visit [facility] [address] [place] [address] Davis Lucas CNP [address] [place] [address] 05/13/2025 1:00 PM EST Office Visit [facility] [address], [place] [phone] Gina Dickson CNM [address] [place] [address] documented as of this encounter Procedures Procedure Name Priority Date/Time Associated Diagnosis Comments POCT , URINE Routine 05/05/2025 10:34 AM EST Elevated blood pressure reading in office without diagnosis of hypertension POCT URINALYSIS DIPSTICK Routine 05/05/2025 10:34 AM EST Elevated blood pressure reading in office without diagnosis of hypertension BACTERIAL VAGINOSIS PANEL Routine 05/05/2025 10:26 AM EST Elevated blood pressure reading in office without diagnosis of hypertension CHLAMYDIA/N. GONORRHOEAE RNA, TMA, UROGENITAL Routine 05/05/2025 10:26 AM EST Elevated blood pressure reading in office without diagnosis of hypertension documented in this encounter Results * POCT , urine manually resulted (05/05/2025 10:34 AM EST) Preg Test, Ur Negative Negative, Indeterminate, None Detected, Trace, 3+, Specimen unsatisfactory for evaluation, Weakly Positive, 1+, 2+ Urine 05/05/2025 10:3 4 AM EST us Vidal Newton MD POINT OF CARE TEST ENTER/EDIT OR DERABLES Final Result * (ABNORMAL) POCT urinalysis dipstick manually resulted (CPT 14426) (05/05/2025 10:34 AM EST) Color, UA Yellow Clarity, UA Clear Glucose, UA Negative Bilirubin, UA Negative Ketones, UA Negative Spec Grav, UA 1.030 Blood, UA Positive(A) Negative, None Detected Comment:Trace pH, UA 5.5 Protein, UA Negative Urobilinogen, UA 0.2 Leukocytes, UA Negative Negative, Rare, Trace, 1+ (17), 2+ (35), 3+ (70), Trace (15) Nitrite, UA Negative Negative, None Detected Appearance, UA OK Urine (Urine, Random) 05/05/2025 10:34 AM EST us Vidal Newton MD POINT OF CARE TEST ENTER/EDIT OR DERABLES Final Result * Chlamydia/N. Gonorrhoeae RNA, TMA, Urogenitial (05/05/2025 10:26 AM EST) CT PCR NOT DETECTED Not Detect. [facility] Comment:A not detected test result [...] psychologicalconsequences. NG PCR NOT DETECTED Not Detect. [facility] Comment:A not detected test result [...] medical, social or psychologicalconsequences. Swab (Vaginal Swab) 05/05/2025 10:26 AM EST 05/05/2025 4:25 PM EST us Vidal Newton MD LAB MICROBIOLOGY - GENERAL ORDER ANAIS Final Result [facility] [address] [place] [phone] * Bacterial Vaginosis (05/05/2025 10:26 AM EST) TRICHOMONAS VAGINALIS DETECTION BY PCR NOT DETECTED Not Detect [facility] BACTERIAL VAGINOSIS DETECTION BY PCR NEGATIVE Negative [facility] Comment:The BV organism targ ets [...] DETECTION BY PCR NOT DETECTED Not Detect [facility] Emma glab krusei PCR NOT DETECTED Not Detect [facility] Swab Vaginal structure / Unknown 05/05/2025 10:26 AM EST 05/05/2025 4:25 PM EST Vidal Newton MD LAB MICROBIOLOGY - GENERAL ORDER ANAIS Final Result [facility] [address] [place] [address] [phone] documented in this encounter Visit Diagnoses Diagnosis Dysuria- Primary Suprapubic pain Abdominal pain, other specified site Vaginal discharge Leukorrhea, not specified as infective Elevated blood pressure reading in office without diagnosis of hypertension documented in this encounter Care Teams Carbon Paper Coating Machine Setter Relationship Specialty Start Date End Date Davis Lucas CNP PCP - General Family Medicine 01/14/25 documented as of this encounter
--- OUTSIDE RECORDS SUMMARY | 2025-05-08 13:30 | XMS_ITS | Encounter Summary ---
Author Organization [employer] Address 75 [facility] 7t [place] [address] Care Team Providers Care Breaker Mechanic Name Role Phone Davis Lucas CNP Primary Care Provider [phone] [phone] Encounter Details Date Type Department Care Team ([facility] st Contact Info) Description 05/08/2025 1:30 PM EST Office Visit [facility] MED & PEDS [address] [place], [place] [phone] Kelley Tran MD [address] [place], [place] [phone] Cervical cancer screening (Primary Dx) Social History [...] 1:32 PM EST documented in this encounter Plan of Treatment Upcoming Encounters Date Type Department Care Team (Late st Contact Info) Description 05/13/2025 9:15 AM EST Office Visit [facility] MED & PEDS [address] [place] [address] Davis Lucas CNP [address] [place] [address] 05/13/2025 1:00 PM EST Office Visit [facility] MEDICINE [address] [place] [address] Gina Dickson CNM [address] [place], [place] [phone] Scheduled Orders Name Type Priority Associated Diagnoses Orde r Schedule Pap Smear Pathology and Cytology Routine Cervical cancer screening Ordered: 05/08/2025 HPV High Risk with Reflex to Subtypes Lab Routine Cervical cancer screening Ordered: 05/08/2025 documented as of this encounter Visit Diagnoses Diagnosis Cervical cancer screening- Primary Screening for malignant neoplasm of the cervix documented in this encounter Care Teams Breaker Mechanic Relationship Specialty Start Date End Date Davis Lucas CNP PCP - General Family Medicine 01/14/25 documented as of this encounter
--- OUTSIDE RECORDS SUMMARY | 2025-05-08 22:19 | XMS_ITS | Encounter Summary ---
Author Organization [employer] Address 75 [facility] 7 [place] [address] Care Team Providers Care Strapper Operator Name Role Phone Davis Lucas CNP Primary Care Provider [phone] [phone] Encounter Details Date Type Department Care Team ([facility] Contact Info) Description 04/14/2025 Results Follow-Up [facility] MED & PEDS [address] [place], [place] [phone] Aisah Munson MD 505 [place], [place] [phone] Hemoglobin A1c, Basic Metabolic Panel Social History [...] Upcoming Encounters Date Type Department Care Team ([facility] Contact Info) Description 05/13/2025 9:15 AM EST Office Visit [facility] MED & PEDS [address] [place], [place] [phone] Davis Lucas CNP [address] [place] [address] 05/13/2025 1:00 PM EST Office Visit [facility] [address] [place], [place] [phone] Gina Dickson CNM [address] [place] [address] documented as of this encounter Visit Diagnoses Not on filedocumented in this encounter Care Teams Strapper Operator Relationship Specialty Start Date End Date Davis Lucas CNP PCP - General Family Medicine 01/14/25 documented as of this encounter
--- OUTSIDE RECORDS SUMMARY | 2025-05-08 22:19 | XMS_ITS | Encounter Summary ---
Author Organization [employer] Address 75 [facility] 7 [place] [address] Care Team Providers Care Primary Products Inspectors Name Role Phone Davis Lucas CNP Primary Care Provider [phone] [phone] Encounter Details Date Type Department Care Team (Latest Contact Info) Description 05/08/2025 Travel Social History Tobacco Use Types Packs/Day [...] Description 05/13/2025 9:15 AM EST Office Visit [facility] MED & PEDS [address] [place] [address] Davis Lucas CNP [address] [place] [address] 05/13/2025 1:00 PM EST Office Visit [facility] MEDICINE [address] [place] [address] Gina Dickson CNM [address] [place] [address] documented as of this encounter Visit Diagnoses Not on filedocumented in this encounter Care Teams Primary Products Inspectors Relationship Specialty Start Date End Date Davis Lucas CNP PCP - General Family Medicine 01/14/25 documented as of this encounter
--- OUTSIDE RECORDS SUMMARY | 2025-05-08 22:19 | XMS_ITS | Encounter Summary ---
Author Organization [employer] Address 75 [facility] 7t [place] [address] Care Team Providers Care Ironer Or Presser Name Role Phone Davis Lucas CNP Primary Care Provider [phone] Encounter Details Date Type Department Care Team ([facility] Contact Info) Description 03/20/2025 Results Follow-Up [facility] MED & PEDS [address] [place], [place] [phone] Aisha Munson MD 505 [place], [place] [phone] POCT Urinalysis, Chlamydia/N. Gonorrhoeae RNA, TMA, Vaginal, [...] Department Care Team (Late Contact Info) Description 05/13/2025 9:15 AM EST Office Visit [facility] MED & PEDS [address] [place], [place] [phone] Davis Lucas CNP [address] [place] [address] 05/13/2025 1:00 PM EST Office Visit [facility] [address] [place] [address] Gina Dickson, JOSEP [address] [place] [address] documented as of this encounter Visit Diagnoses Not on filedocumented in this encounter Care Teams Ironer Or Presser Relationship Specialty Start Date End Date Davis Lucas CNP PCP - General Family Medicine 01/14/25 documented as of this encounter
--- OUTSIDE RECORDS SUMMARY | 2025-05-08 22:19 | XMS_ITS | Clinical Summary ---
Author Organization [facility] ity Address [address] [place] [address] Care Team Providers Care Group Supervisor Yard Name Role Phone Balaji See MD Primary Care Provider [phone] Social History Tobacco Use Types Packs/Day Years [...] age to complete this topic Care Teams Group Supervisor Yard Relationship Specialty Start Date End Date Balaji See MD [address] [place] [address] PCP - General Internal Medicine 05/16/16
--- OUTSIDE RECORDS SUMMARY | 2025-05-08 22:19 | XMS_ITS | Encounter Summary ---
Author Organization [employer] Address 75 [facility] 7 [place] [address] Care Team Providers Care Change Management Manager Name Role Phone Davis Lucas CNP Primary Care Provider [phone] [phone] Encounter Details Date Type Department Care Team [...] Description 05/13/2025 9:15 AM EST Office Visit [facility] MED & PEDS [address] [place] [address] Davis Lucas CNP [address] [place] [address] 05/13/2025 1:00 PM EST Office Visit [facility] MEDICINE [address] [place] [address] Gina Dickson CNM [address] [place] [address] documented as of this encounter Visit Diagnoses Not on filedocumented in this encounter Care Teams Change Management Manager Relationship Specialty Start Date End Date Davis Lucas CNP PCP - General Family Medicine 01/14/25 documented as of this encounter
--- OUTSIDE RECORDS SUMMARY | 2025-05-08 22:19 | XMS_ITS | Encounter Summary ---
Author Organization [employer] Address 75 [facility] 7 [place] [address] Care Team Providers Care Cushion Former Name Role Phone Davis Lucas CNP Primary Care Provider [phone] Encounter Details Date Type Department Care Team ([facility] Contact Info) Description 03/06/2025 Orders Only [facility] MED & PEDS [address] [place] [address] Aisha Munson MD [address] [place], [place] [phone] Bacterial vaginosis (Primary Dx) Social History Tobacco [...] Care Team ([facility] Contact Info) Description 05/13/2025 9:15 AM EST Office Visit [facility] MED & PEDS [address] [place] [address] Davis Lucas CNP [address] [place] [address] 05/13/2025 1:00 PM EST Office Visit [facility] MEDICINE [address] [place] [address] Gina Dickson CNM [address] [place] [address] documented as of this encounter Procedures Procedure Name Priority Date/Time Associated Diagnosis Comments URINALYSIS, COMPLETE, WITH REFLEX TO CULTURE Routine 03/19/2025 10:09 AM EDT Bacterial vaginosis CULTURE, URINE, ROUTINE Routine 03/19/2025 12:00 AM EDT Bacterial vaginosis documented in this encounter Results * (ABNORMAL) Urinalysis, Complete, with Reflex to Culture (03/19/2025 10:09 AM EDT) Color Urine Yellow [facility] Appearance Urine Clear [facility] PH 5.5 5.0 - 9.0 [facility] Glucose Urine UA Negative Negative mg/dL [facility] Urine Blood Negative Negative [facility] Specific [place] - Urine 1.020 1.005 - 1.025 [facility] Urine Protein Negative Neg-Trace mg/dL [facility] Urine Ketones Negative Negative mg/dL [facility] Nitrite Urine Negative Negative [facility] Leukocyte Esterase Urine Small (1+)(A) Negative [facility] RBC Urine 0-2 0 - 2 /HPF [facility] Urine WBC 0-5 0 - 5 /HPF [facility] Urine Squamous Epithelial Cell 3-5 0 - 2 /HPF [facility] Urine Bacteria Trace None Seen [facility] Hyaline Casts, Urine 0-2 0 - 2 /LPF [facility] 03/19/2025 10:0 9 AM EDT 03/19/2025 1:58 PM EDT Narrative [facility] - 03/19/2025 2:32 PM EDT [id number], Clean Catch us Aisha Munson MD LAB URINE ORDERABLES Final Result [facility] [address] [place] [address] [phone] * Culture, Urine, Routine (03/19/2025 12:00 AM EDT) Urine Urine specimen obtained by clean catch procedure / Unknown 03/19/2025 03/19/2025 Comment:UACC Narrative [facility] - 03/20/2025 10:56 AM EDT Urine Culture No growth. Specimen Source: Urine clean catch us Aisha Munson MD LAB MICROBIOLOGY - GENERAL ORDERABLES Final Result [facility] [address] [place] [address] [phone] documented in this encounter Visit Diagnoses Diagnosis Bacterial vaginosis- Primary Unspecified vaginitis and vulvovaginitis documented in this encounter Care Teams Cushion Former Relationship Specialty Start Date End Date Davis Lucas CNP PCP - General Family Medicine 01/14/25 documented as of this encounter
--- OUTSIDE RECORDS SUMMARY | 2025-05-08 22:19 | XMS_ITS | Clinical Summary ---
Author Organization [employer] Address [address] [facility] [address] [place] [address] Care Team Providers Care Layout Man Name Role Phone Davis Lucas CNP Primary Care Provider [phone] [phone] Allergies No known active allergies Medications aluminum chloride (Drysol) 20 % external solution Leave on skin for 6-8 hrs; wash off next morning with soap & water. Wear a t-shirt while sleeping. Wait at least 2 hours after bathing before applying. Do not apply to wounds or broken, irritated skin. 35 mL 3 3 Active oxybutynin (Ditropan) 5 MG tabletIndications :Urinary frequency Take 1 tablet (5 mg) by mouth 3 times daily. 90 tablet 11 5 026 Active acetaminophen (Tylenol) 500 MG tablet Take 2 tablets (1,000 mg) by mouth every 6 (six) hours if needed for moderate pain or fever for up to 25 doses. 50 tablet 05/05/2025 11:14 AM EST 5 Active Blood Pressure kit 1 each 2 times daily. 1 kit 5 026 Active metroNIDAZOLE (Flagyl) 500 MG tablet Take 1 tablet (500 mg) by mouth after breakfast and after evening meal for 7 days. 14 tablet 05/05/2025 11:14 AM EST 5 025 Active etonogestrel-elut ing 68 mg contraceptive implant 1 each by Implant route 1 (one) time. Active polyethylene glycol, PEG, 3350 (MiraLax) 17 GM/SCOOP powder Take 17 g by mouth Once per day. 527 g 2 5 Active senna-docusate sodium (Senokot-S) 8.6-50 MG tablet Take 1 tablet by mouth Once per day. 180 tablet Active docusate sodium (Colace) 100 MG capsule Take 1 capsule (100 mg) by mouth 2 times daily. 60 capsule 5 Active levonorgestrel (Plan B One-Step) 1.5 MG tablet Take 1 tablet by mouth. 0 025 Discontin ued(Thera py completed ) Active Problems Problem Noted Date Diagnosed Date Bacterial vaginosis 05/08/2025 Class 2 obesity 05/08/2025 Genitourinary Chlamydia infection 05/08/2025 S/P appendectomy 05/05/2025 Encounters Date Type Department Care Team Description 05/08/2025 1:30 PM EST Office Visit [facility] [address] [place] [address] Kelley Tran MD Cervical cancer screening (Primary Dx) 05/08/2025 Travel 05/06/2025 Telephone [facility] [address] [place] [phone] Vidal Newton MD 05/05/2025 9:20 AM EST Office Visit [facility] [address] [place] [address] Vidal Newton MD Dysuria (Primary Dx); Suprapubic pain; Vaginal discharge; Elevated blood pressure reading in office without diagnosis of hypertension 05/05/2025 Travel 04/28/2025 Patient Outreach [facility] [address] [place] [address] Davis Lucas CNP Pre-visit Planning ([facility] unable to reach [facility]) 04/14/2025 10:45 AM EST Office Visit [facility] [address] [place] [address] Aisha Munson MD Urinary frequency (Primary Dx) 04/14/2025 Results Follow-Up [facility] [address] [place] [address] Aisha Munson MD Hemoglobin A1c, Basic Metabolic Panel 04/14/2025 Travel 04/09/2025 Telephone [facility] [address] [place] [address] Davis Lucas CNP Nurse Triage 03/24/[address] [address] Davis Lucas CNP Results 03/20/2025 Results Follow-Up [facility] [address] [place] [address] Aisha Munson MD POCT Urinalysis, Chlamydia/N. Gonorrhoeae RNA, TMA, Vaginal, Bacterial Vaginosis Panel 03/19/2025 2:45 PM EDT Office Visit [facility] [address] [place] [address] Aisha Munson MD Acute vaginitis (Primary Dx); Urinary frequency; Dietary counseling; Exercise counseling; Overweight 03/19/2025 Travel 03/19/[address] [address] Davis Lucas CNP Nurse Triage 03/06/2025 Results Follow-Up [facility] [address] [place] [address] Ledy Rees, CUONG POCT Urinalysis, Bacterial Vaginosis Panel 03/06/2025 Orders Only [facility] [address] [place] [address] Aisha Munson MD Bacterial vaginosis (Primary Dx) 03/05/2025 2:40 PM EDT Office Visit [facility] [address] [place] [address] Aisha Munson MD Urinary frequency (Primary Dx); Screen for STD (sexually transmitted disease) 03/05/2025 Travel 03/05/[address] [address] Davis Lucas CNP Nurse Triage from Last 3 Months Immunizations Immunization Administration Dates Next Due Tdap 09/15/2022 Social History Tobacco Use Types Packs/Day Years [...] 20 05/08/2025 1:32 PM EST Oxygen Saturation 99% 05/05/2025 9:24 AM EST Inhaled Oxygen Concentration - - Weight 72.6 kg (160 lb) 05/08/2025 1:32 PM EST Height 157.5 cm (5' 2 ) 05/08/2025 1:32 PM EST Body Mass Index 29.26 05/08/2025 1:32 PM EST Plan of Treatment Upcoming Encounters Date Type Department Care Team (Late st Contact Info) Description 05/13/2025 9:15 AM EST Office Visit [facility] [address] [place] [address] Davis Lucas, POLE [employer]ER [address] [place] [address] 05/13/2025 1:00 PM EST Office Visit [facility] [address] [place] [address] Gina Dickson CNM [address] [place] [address] Health Maintenance Due Date Last Done Comments Depression Screening 1990 SDOH Screening 1990 Disability Screening 1990 Alcohol/Substance Use Screening 2002 Family Planning (PISQ) 2005 HPV Vaccines (1 - 3-dose series) 2005 Hepatitis B Vaccines (1 of 3 - 19+ 3-dose series) 2009 COVID-19 Vaccine (2024-2 6 season) 2025 Influenza Vaccine (#1) 2025 Cervical Cancer Screening 06/08/2025 HPV/Cotest 06/08/2025 06/08/2022 Pap Smear 06/08/2025 06/08/2022 Tobacco Screening 05/08/2026 05/08/2025 DTaP/Tdap/Td Vaccines (2 - T d or [...] (ABNORMAL) POCT urinalysis dipstick manually resulted (CPT 73320) (05/05/2025 10:34 AM EST) Only the most [...] TEST ENTER/EDIT OR DERABLES Final Result * Bacterial Vaginosis (05/05/2025 10:26 AM EST) Only the most recent of3 resultswithin the time period is included. TRICHOMONAS VAGINALIS DETECTION BY PCR NOT DETECTED Not Detect [facility] BACTERIAL VAGINOSIS DETECTION BY PCR NEGATIVE Negative [facility] Comment:The BV organism targ ets [...] DETECTION BY PCR NOT DETECTED Not Detect [facility] Emma glab krusei PCR NOT DETECTED Not Detect [facility] Swab Vaginal structure / Unknown 05/05/2025 10:26 AM EST 05/05/2025 4:25 PM EST us Vidal Newton MD LAB MICROBIOLOGY - GENERAL ORDER ANAIS Final Result [facility] [address] [place] [address] [phone] * Chlamydia/N. Gonorrhoeae RNA, TMA, Urogenitial (05/05/2025 10:26 AM EST) Only the most recent of2 resultswithin the time period is included. CT PCR NOT DETECTED Not Detect. [facility] Comment:A not detected test result [...] psychologicalconsequences. NG PCR NOT DETECTED Not Detect. [facility] Comment:A not detected test result [...] MICROBIOLOGY - GENERAL ORDER ANAIS Final Result Performing Organization Address [facility] Co de Phone Number [facility] [address] [place] [address] [phone] * Hemoglobin A1c (04/14/2025 11:57 AM EST) Hemoglobin A1c 5.3 <6.0 % [facility] Comment:Hemoglobin A1C Refer ence Range Adults: 4.8 - 6.0 % Non diabetic: < 6.0 % Goal: < 7.0 %Additional Action Suggested: > 8.0 %Note: Hemoglobin A1c results are invalid for patients with abnormal amounts of HbF. Blood transfusions may impact the HbA1c concentration in the patient sample. Estimated Average Glucose 105 mg/dL [facility] Comment:eAG = Estimated ave rage glucose which is %A1C expressed asaverage glucose, using the formula of the F9Q-XelazphKyextph Glucose study (ADAG), Diabetes Care, Vol.31,#8,Jan. 2007 Blood Venous blood specimen / Unknown 04/14/2025 11:57 AM EST 04/14/2025 2:20 PM EST us Aisha Munson MD LAB BLOOD ORDERABLES Final Result Performing Organization Address [facility] Co de Phone Number [facility] [address] [place] [phone] * (ABNORMAL) Basic Metabolic Panel (04/14/2025 11:57 AM EST) Sodium 139 135 - 145 mmol/L [facility] Potassium 3.6 3.3 - 5.1 mmol/L [facility] Chloride 106 96 - 108 mmol/L [facility] Carbon Dioxide 25 22 - 29 mmol/L [facility] Anion Gap 12 12 - 20 [facility] Urea Nitrogen (BUN) 8(L) 9 - 16 mg/dL [facility] Creatinine, Serum 0.63 0.5 - 1.4 mg/dL [facility] Estimated Glomerular Filt Rate >60 [facility] Comment:Chronic Kidney Disea se: Estimated GFR < 60 mL/min/1.27a7Vesevx Kidney Disease: Estimated GFR < 15 mL/min/1.73m2 Glucose 86 60 - 115 mg/dL [facility] Calcium 9.4 8.4 - 10.2 mg/dL [facility] Blood Venous blood specimen / Unknown 04/14/2025 11:57 AM EST 04/14/2025 2:21 PM EST us Aisha Munson MD LAB BLOOD ORDERABLES Final Result Performing Organization Address [facility] Co de Phone Number [facility] [address] [place] [address] [phone] * Culture, Urine, Routine (03/19/2025 3:37 PM EDT) Only the most recent of2 resultswithin the time period is included. Urine Urine specimen obtained by clean catch procedure / Unknown 03/19/2025 3:37 PM EDT 03/19/2025 6:41 PM EDT Comment:UACC Narrative [facility] - 03/21/2025 10:22 AM EDT Urine Culture No growth. Specimen Source: Urine clean catch Aisha Mnuson MD LAB MICROBIOLOGY - GENERAL ORDERABLES Final Result Performing Organization Address City/[facility]/ZIP Co de Phone Number [facility] [address] [place] [address] [phone] * (ABNORMAL) Urinalysis, Complete, with Reflex to Culture (03/19/2025 10:09 AM EDT) Color Urine Yellow [facility] Appearance Urine Clear [facility] PH 5.5 5.0 - 9.0 [facility] Glucose Urine UA Negative Negative mg/dL [facility] Urine Blood Negative Negative [facility] Specific [place] - Urine 1.020 1.005 - 1.025 [facility] Urine Protein Negative Neg-Trace mg/dL [facility] Urine Ketones Negative Negative mg/dL [facility] Nitrite Urine Negative Negative [facility] Leukocyte Esterase Urine Small (1+)(A) Negative [facility] RBC Urine 0-2 0 - 2 /HPF [facility] Urine WBC 0-5 0 - 5 /HPF [facility] Urine Squamous Epithelial Cell 3-5 0 - 2 /HPF [facility] Urine Bacteria Trace None Seen [facility] Hyaline Casts, Urine 0-2 0 - 2 /LPF [facility] 03/19/2025 10:0 9 AM EDT 03/19/2025 1:58 PM EDT Narrative [facility] - 03/19/2025 2:32 PM EDT [id number], Clean Catch us Aisha Munson MD LAB URINE ORDERABLES Final Result [facility] [address] [place] [phone] * Hepatitis C Antibody with Reflex to HCV, RNA, Quantitative, Real-Time PCR (03/19/2025 9:57 AM EDT) Hepatitis C Antibody Nonreactive Nonreactive [facility] Comment:Antibodies to HCV no t detected; does not exclude early acuteHCV infection. Blood Venous blood specimen / Unknown 03/19/2025 9:57 AM EDT 03/19/2025 2:07 PM EDT us Aisha Munson MD LAB BLOOD ORDERABLES Final Result Performing Organization Address [facility] Co de Phone Number [facility] [address] [place] [address] [phone] * RPR (Monitor) with Reflex to??Titer (03/19/2025 9:57 AM EDT) RPR (Monitor) w/Refl Titer NON-REACTI VE NON-REACT BETTYE [facility] Comment:THIS TEST WAS PERFOR MED AT:[employer] [place] [phone] MUHAMMAD MD Rapid Plasma Reagin Ab Titer TNP [facility] Blood Venous blood specimen / Unknown 03/19/2025 9:57 AM EDT 03/19/2025 2:07 PM EDT us Aisha Munson MD LAB BLOOD ORDERABLES Final Result Performing Organization Address [facility] Co de Phone Number [facility] [address] [place] [phone] * HIV-1/2 Antigen and Antibodies, Fourth Generation, with Reflexes (03/19/2025 9:57 AM EDT) HIV AB/AG Nonreactive Nonreactive [facility] Comment:HIV-1 p24 Ag and/or HIV-1/HIV-2 Ab not detected.A test result that is nonreactive does not exclude thepossibility of exposure to or infection with HIV-1 and/orHIV-2. Nonreactive results in this assay for individualswith prior exposure to HIV-1 and/or HIV-2 may be due toantigen and antibody levels that are below the limit ofdetection of this assay.The [employer] HIV Ag/Ab Combo assay result andsupplemental assay results should be interpreted inconjunction with the patient's clinical presentation,history and other laboratory results. If the results areinconsistent with clinical evidence, additional testing issuggested to confirm the result. Blood Venous blood specimen / Unknown 03/19/2025 9:57 AM EDT 03/19/2025 2:07 PM EDT Aisha Munson MD LAB BLOOD ORDERABLES Final Result [facility] [address] [place] [phone] [phone] * (ABNORMAL) Pap Smear (06/08/2022) Pap Epithelial cell abnormality(A ) Negative for intraephithelial lesion or malignancy, Other Comment:ASCUS HPV Not Detected Undetected, Indeterminate, Quantitative, Not Detected Historical Provider HEALTH MAINTENANCE Final Result from Last 3 Months or Most Recently Relevant to Health Maintenance Insurance [employer] C3 Care Teams Layout Man Relationship Specialty Start Date End Date Davis Lucas CNP PCP - General Family Medicine 01/14/25
--- OUTSIDE RECORDS SUMMARY | 2025-05-08 22:19 | XMS_ITS | Encounter Summary ---
Author Organization [employer] Address [address] [facility] [address] [place] [address] Care Team Providers Care Food And Beverage Lead Name Role Phone Davis Lucas CNP Primary Care Provider [phone] Encounter Details Date Type Department Care Team (Late Contact Info) Description 05/06/2025 Telephone [facility] [address] [place] [address] Vidal Newton MD [address] [place] [address] Social History Tobacco Use Types Packs/Day Years [...] encounter Miscellaneous Notes * Telephone Encounter - Vidal Newton MD - 05/06/2025 1:17 PM EST I notified Nuris of yesterday's negative lab test results, and advised stopping taking Flagyl. Apparently there was not enough urine to send for C&S. I asked her to return to the [facility] lab to give another urine specimen for C&S and we will contact her with the results. documented in this encounter Plan of Treatment Upcoming Encounters Date Type Department Care Team (Late Contact Info) Description 05/13/2025 9:15 AM EST Office Visit [facility] [address] [place] [address] Davis Lucas CNP [address] [place] [address] 05/13/2025 1:00 PM EST Office Visit [facility] [address] [place], [place] [phone] Gina Dickson CNM [address] [place], [place] [phone] Scheduled Orders Name Type Priority Associated Diagnoses Orde r Schedule Culture, Urine, Routine Microbiology Routine Dysuria Expected: 05/06/2025 (Approximate), Expires: 05/06/2026 documented as of this encounter Visit Diagnoses Diagnosis Dysuria- Primary documented in this encounter Care Teams Food And Beverage Lead Relationship Specialty Start Date End Date Davis Lucas CNP PCP - General Family Medicine 01/14/25 documented as of this encounter
== END 2025-05-08 18:38 | disposition home or self-care (01) ==
LOC: HO.HHCLNP 18:37
PROVIDERS: Visit Provider Family Medicine
DX: Z12.4 Encounter for screening for malignant neoplasm of cervix (principal)
CPT/HCPCS: 88175

== ENCOUNTER 2025-05-13 16:34 | Outpatient (REF) | payer MEDICAID, SELFPAY ==
--- OUTSIDE RECORDS SUMMARY | 2025-05-08 13:30 | XMS_ITS | Encounter Summary ---
Author Organization [employer] Address 75 [facility] 7t [place] [address] Care Team Providers Care Pulper Operator Name Role Phone Davis Lucas CNP Primary Care Provider [phone] Reason for Visit * Reason Comments Well woman exam Encounter Details Date Type Department Care Team ([facility] Contact Info) Description 05/08/2025 1:30 PM EST Office Visit [facility] MED & PEDS [address] [place], [place] [phone] Kelley Tran MD 505 [place], [place] [phone] Cervical cancer screening (Primary Dx) Social History Tobacco Use Types [...] Sign Reading Time Taken Comments Blood Pressure 135/87 05/08/2025 1:32 PM EST Pulse 78 05/08/2025 1:32 PM EST Temperature 37.1 C (98.7 F) 05/08/2025 1:32 PM EST Respiratory Rate 20 05/08/2025 1:32 PM EST Oxygen Saturation - - Inhaled Oxygen Concentration - - Weight 72.6 kg (160 lb) 05/08/2025 1:32 PM EST Height 157.5 cm (5' 2 ) 05/08/2025 1:32 PM EST Body Mass Index 29.26 05/08/2025 1:32 PM EST documented in this encounter Progress Notes * Kelley Tran MD - 05/08/2025 1:30 PM EST Subjective Patient ID: Soumya Garcia is a 35 y.o. female who presents for Well woman exam. Soumya Garcia is a female patient presenting for routine pap smear follow-up after having a previous pap with atypical cells but no HPV, with recommendation for repeat testing in 3 years. The patient reports recurrent bacterial vaginosis (BV) and irritation during intercourse. She started taking BV medication on Monday. She has concerns that her partner may have BV and could be causing recurrent infections. She has ongoing urinary symptoms with a history of being prescribed oxybutynin by Dr. Galindo, but reports it is not helping her symptoms. She also experiences constipation. The patient has headaches and light sensitivity that she plans to discuss with her new primary care provider. For contraception, she currently has a Nexplanon implant. She has a scheduled follow-up appointmentwith her new primary care provider. Review of Systems HEENT: Positive for headaches and light sensitivity. Gastrointestinal: Positive for constipation. Genitourinary: Positive for recurrent bacterial vaginosis, irritation during intercourse, and urinary symptoms. Review of Systems Constitutional: Negative for appetite change, fatigue and fever. HENT: Negative for congestion, postnasal drip and rhinorrhea. Eyes: Negative for discharge and redness. Respiratory: Negative for apnea, cough, chest tightness and shortness of breath. Cardiovascular: Negative for chest pain. Gastrointestinal: Negative for abdominal pain. Endocrine: Negative for polyphagia. Genitourinary: Negative for difficulty urinating, dysuria and urgency. Musculoskeletal: Negative for arthralgias. Neurological: Negative for dizziness, light-headedness, numbness and headaches. Hematological: Negative for adenopathy. Does not bruise/bleed easily. Objective BP 135/87 (BP Location: Left arm, Patient Position: Sitting, BP Cuff Size: Adult) Pulse 78 Temp98.7 ??F (37.1 ??C) (Oral) Resp 20 Ht 5' 2 (1.575 m) Wt 160 lb (72.6 kg) LMP 04/14/2025 BMI 29.26 kg/m?? Physical Exam Vitals reviewed. Exam conducted with a cloth shearer present. HENT: Head: Normocephalic and atraumatic. Pulmonary: Effort: Pulmonary effort is normal. Chest: Chest wall: No deformity, tenderness or crepitus. Breasts: Breasts are symmetrical. Right: Normal. No inverted nipple, mass, nipple discharge, skin change or tenderness. Left: Normal. No inverted nipple, mass, nipple discharge, skin change or tenderness. Comments: Dense breast Genitourinary: Urethra: No prolapse. Vagina: Normal. Cervix: Normal. Rectum: Normal. Musculoskeletal: Cervical back: Normal range of motion. Lymphadenopathy: Upper Body: Right upper body: No supraclavicular, axillary or pectoral adenopathy. Left upper body: No supraclavicular, axillary or pectoral adenopathy. Psychiatric: Mood and Affect: Mood normal. Assessment/Plan Problem List Items Addressed This Visit Cervical cancer screening - Primary 35 y.o. here for cervical cancer screening. Will continue monitoring following ASCCP guidelines. Relevant Medications etonogestrel-eluting 68 mg contraceptive implant Other Relevant Orders Pap Smear HPV High Risk with Reflex to Subtypes documented in this encounter Miscellaneous Notes * Assessment & Plan Note - Kelley Tran MD - 05/09/2025 8:19 AM EST Associated Problem(s): Cervical cancer screening 35 y.o. here for cervical cancer screening. Will continue monitoring following ASCCP guidelines. documented in this encounter Plan of Treatment Scheduled Orders Name Type Priority Associated Diagnoses Orde r Schedule Pap Smear Pathology and Cytology Routine Cervical cancer screening Ordered: 05/08/2025 HPV High Risk with Reflex to Subtypes Lab Routine Cervical cancer screening Ordered: 05/08/2025 documented as of this encounter Visit Diagnoses Diagnosis Cervical cancer screening- Primary Screening for malignant neoplasm of the cervix documented in this encounter Care Teams Pulper Operator Relationship Specialty Start Date End Date Davis Lucas CNP PCP - General Family Medicine 01/14/25 documented as of this encounter
--- OUTSIDE RECORDS SUMMARY | 2025-05-13 13:00 | XMS_ITS | Encounter Summary ---
Author Organization [employer] Address [address] [facility] [address] [place] [address] Care Team Providers Care Barback Name Role Phone Davis Lucas CNP Primary Care Provider [phone] [phone] Reason for Visit * Reason Comments pelvic Encounter Details Date Type Department Care Team ([facility] Contact Info) Description 05/13/2025 1:00 PM EST Office Visit [facility] [address] [place] [address] Gina Dickson CN [address] [place] [address] Dysuria (Primary Dx); Vaginal discharge Social History Tobacco Use Types Packs/Day Years Used Date Smoking Tobacco: Former Cigarettes Smokeless Tobacco: Never Tobacco Cessation:Counseling Given: Not Answered Comments:Smokes 5 cig a day x the last 2 years. Depression Answer Date Recorded Patient Health Questionnaire-9 Score 11 05/13/2025 Patient Health Questionnaire-9 Score 11 05/13/2025 Last PHQ-9: Questionnaire Data Not on file 1 07/14/2024 Depression Answer Date Recorded Patient Health Questionnaire-2 Score 3 05/13/2025 Comments No Intention Date Recorded No desire to become (finding) 1 07/14/2024 Sex and Gender Information Value Date Recorded Sex Assigned at Female 04/04/2022 10:33 AM EDT Legal Sex Female 10:33 AM EDT Gender Identity Female 04/04/2022 10:33 AM EDT Sexual Orientation Straight 08/23/2024 3: 38 PM EDT documented as of this encounter Last Filed Vital Signs Vital Sign Reading Time Taken Comments Blood Pressure 146/84 05/13/2025 1:14 PM EST Pulse 82 05/13/2025 1:14 PM EST Temperature 37.2 C (98.9 F) 05/13/2025 1:14 PM EST Respiratory Rate 16 05/13/2025 1:14 PM EST Oxygen Saturation 98% 05/13/2025 1:14 PM EST Inhaled Oxygen Concentration - - Weight 72.1 kg (159 lb) 05/13/2025 1:14 PM EST Height - - Body Mass Index 29.08 05/08/2025 1:32 PM EST documented in this encounter Functional Status * Over the past 2 weeks, how often have you been bothered by any of the following problems? Question Answer Date of Assessment Author Patient Health Questionnaire-2 Score 3 02/2025 1:16 PM EST Cece Saldana [place] * Little interest or pleasure in doing things Answer Date of Assessment Author Several days 05/13/2025 1:16 PM EST Cece Saldana [place] * Feeling down, depressed, or hopeless Answer Date of Assessment Author More than half the days 05/13/2025 1:16 PM EST S Cece tucker [place] * Trouble falling or staying asleep, or sleeping too much Answer Date of Assessment Author More than half the days 05/13/2025 1:16 PM EST Cece Ly [place] * Feeling tired or having little energy Answer Date of Assessment Author Not at all 05/13/2025 1:16 PM EST Cece Saldana [place] * Poor appetite or overeating Answer Date of Assessment Author More than half the days 05/13/2025 1:16 PM EST S Cece tucker [place] * Feeling bad about yourself - or that you are a failure or have let yourself or your family down Answer Date of Assessment Author Not at all 05/13/2025 1:16 PM EST Cece Saldana [place] * Trouble concentrating on things, such as reading the newspaper or watching television Answer Date of Assessment Author Nearly every day 05/13/2025 1:16 PM EST Cece Saldana [place] * Moving or speaking so slowly that other people could have noticed? Or the opposite - being so fidgety or restless that you have been moving around a lot more than usual. Answer Date of Assessment Author Several days 05/13/2025 1:16 PM EST Cece Saldana MA * Thoughts that you would be better off or hurting yourself in some way Answer Date of Assessment Author Not at all 05/13/2025 1:16 PM Cece Garzon [place] * Patient Health Questionnaire-9 Score Answer Date of Assessment Author 11 05/13/2025 1:16 PM Cece Garzon [place] * Over the last 2 weeks, how often have you been bothered by any of the following problems? Question Answer Date of Assessment Author Feeling nervous, anxious, or on edge 2 02/2025 1:17 PM Cece Garzon MA Not being able to stop or co ntrol worrying 1 05/13/2025 1:17 PM Cece Garzon M A Worrying too much about diff erent things 2 05/13/2025 1:17 PM Cece Garzon M A Trouble relaxing 1 05/13/2025 1:17 PM Cece Back MA Being so restless that it is hard to sit still 1 05/13/2025 1:17 PM Cece Garzon M A Becoming easily annoyed or irritable 1 02/2025 1:17 PM Cece Garzon MA Feeling afraid as if somethi ng awful might happen 1 05/13/2025 1:17 PM Cece Garzon M A ALFONSO-7 Total Score 9 05/13/2025 1:17 PM Cece Garzon MA * How difficult have these problems made it for you to do your work, take care of things at home, or get along with other people? Answer Date of Assessment Author Somewhat difficult 05/13/2025 1:16 PM Cece Quigley MA documented as of this encounter Progress Notes * Gina Dickson CNM - 05/13/2025 1:00 PM EST Subjective Patient ID: Soumya Garcia is a 35 y.o. female who presents for vaginal symptoms Here to discuss options for recurrent bacterial vaginosis. Gonorrhea/Chlamydia/trichomonas/yeast/bacterial vaginosis neg 05/05/2025. Treated presumptively for bacterial vaginosis. Just finished metronidazole 2 days ago. UA positive for blood 05/05. Urine culture ordered, not run. Bacterial vaginosis positive 08/2024 and 03/2025. No change in partner. Using condoms to help reduce bacterial vaginosisrisk. Pap ASCUS/HPV neg 06/2022. Pap/HPV pending from earlier this month. Has Nexplanon, happy with method. Not planning in the next year. Inserted 2 years ago. Review of Systems Constitutional: Negative for chills and fever. Genitourinary: Positive for dysuria and frequency. Negative for flank pain, vaginal bleeding, vaginal discharge and vaginal pain. Objective BP (!) 146/84 (BP Location: Left arm, Patient Position: Sitting, BP Cuff Size: Adult) Pulse 82 Temp 98.9 ??F (37.2 ??C) (Oral) Resp 16 Wt 159 lb (72.1 kg) LMP 04/14/2025 SpO2 98% BMI 29.08 kg/m?? Physical Exam Constitutional: Appearance: Normal appearance. Abdominal: Tenderness: There is no right CVA tenderness or left CVA tenderness. Neurological: Mental Status: She is alert. Psychiatric: Mood and Affect: Mood normal. Behavior: Behavior normal. Assessment/Plan Diagnoses and all orders for this visit: Dysuria Will send urine C&S today as previously ordered. Vaginal discharge Trial suppressive MetroGel for bacterial vaginosis prevention. For office visit if vaginal symptomsrecur. Newer research shows that treating partners may help reduce bacterial vaginosis recurrences for you. Your partner can come see a provider here if they are a patient at the [facility] (or go to [facility] if not) to see if treatment for them might be a good idea. This would include a pill (metronidazole) taken twice a day and using 2 cm of 2% clindamycin cream applied to the head of the penis andthe upper shaft twice a day for 7 days. It is best to abstain from sex x 7 days (during treatment). Happy with implant. Remove/replace by 5 years from insertion. Other orders - metroNIDAZOLE (Metrogel) 0.75 % vaginal gel; One applicatorful twice a week for 12 weeks. documented in this encounter Plan of Treatment Not on file documented as of this encounter Visit Diagnoses Diagnosis Dysuria- Primary Vaginal discharge Leukorrhea, not specified as infective documented in this encounter Additional Health Concerns Assessment Noted Time PHQ-9 Depression Total Score: 11 025 1:16 PM EST documented as of this encounter Care Teams Barback Relationship Specialty Start Date End Date Davis Lucas CNP PCP - General Family Medicine 01/14/25 documented as of this encounter
--- OUTSIDE RECORDS SUMMARY | 2025-05-13 23:00 | XMS_ITS | Encounter Summary ---
Author Organization [employer] Address [address] [facility] 7 [place] [address] Care Team Providers Care Sap Abap Developer Name Role Phone Júnior Lucasabdifatah JACOBSON Primary Care Provider [phone] [phone] Reason for Visit * Reason Onset Date Comments chart prep 05/12/2025 Encounter Details Date Type Department Care Team ([facility] st Contact Info) Description 05/12/2025 Telephone [facility] CHC MED & PEDS [address] [place], [place] [phone] Davis Lucas CNP [address] [place], [place] [phone] chart prep Social History Tobacco Use Types Packs/Day Years Used Date Smoking Tobacco: Former Cigarettes Smokeless Tobacco: Never Comments:Smokes 5 cig a day x the last 2 years. Depression Answer Date Recorded Patient Health Questionnaire-9 Score 11 05/13/2025 Patient Health Questionnaire-9 Score 11 05/13/2025 Last PHQ-9: Questionnaire Data Not on file 1 07/14/2024 Depression Answer Date Recorded Patient Health Questionnaire-2 Score 3 05/13/2025 Comments Unknown Sex and Gender Information Value Date Recorded Sex Assigned at Female 04/04/2022 10:33 AM EDT Legal Sex Female 10:33 AM EDT Gender Identity Female 04/04/2022 10:33 AM EDT Sexual Orientation Straight 08/23/2024 3: 38 PM EDT documented as of this encounter Miscellaneous Notes * Telephone Encounter - Julia Looney MA - 05/12/2025 1:45 PM EST Chart Prep Labs: not applicable Images: not applicable Referrals: not applicable Vaccines due: Covid, Flu, Hep B, and HPV Screenings: not applicable Overdue care gaps: SBIRT, SDOH, PHQ-9, and ALFONSO-7 documented in this encounter Plan of Treatment Not on file documented as of this encounter Visit Diagnoses Not on filedocumented in this encounter Care Teams Sap Abap Developer Relationship Specialty Start Date End Date Davis Lucas CNP PCP - General Family Medicine 01/14/25 documented as of this encounter
--- OUTSIDE RECORDS SUMMARY | 2025-05-13 23:00 | XMS_ITS | Encounter Summary ---
Author Organization [employer] Address 75 [facility] 7t [place] [address] Care Team Providers Care Tower Operator Name Role Phone Davis Lucas CNP Primary Care Provider [phone] [phone] Reason for Visit * Reason Onset Date Comments CHART PREP 05/12/2025 Encounter Details Date Type Department Care Team ([facility] st Contact Info) Description 05/12/2025 Telephone [facility] [address] [place] [address] Gina Dickson CNM [address] [place] [address] CHART PREP Social History Tobacco Use Types Packs/Day Years [...] encounter Miscellaneous Notes * Telephone Encounter - Beatrice Chavira MA - 05/12/2025 9:17 AM EST .Chart Prep Labs: not applicable Images: not applicable Vaccines due: Hep B Due Referrals: Not Applicable Screenings: LMP Overdue care gaps: Sbirt, SDOH, PHQ9, GAD7, Disability , and Oral Health documented in this encounter Plan of Treatment Not on file documented as of this encounter Visit Diagnoses Not on filedocumented in this encounter Care Teams Tower Operator Relationship Specialty Start Date End Date Davis Lucas CNP PCP - General Family Medicine 01/14/25 documented as of this encounter
--- OUTSIDE RECORDS SUMMARY | 2025-05-13 23:00 | XMS_ITS | Encounter Summary ---
Author Organization [employer] Address [address] [facility] [address] [place] [address] Care Team Providers Care Diamond Cleaner Name Role Phone Davis Lucas CNP Primary Care Provider [phone] [phone] Encounter Details Date Type Department Care Team [...] on filedocumented in this encounter Care Teams Diamond Cleaner Relationship Specialty Start Date End Date Davis Lucas CNP PCP - General Family Medicine 01/14/25 documented as of this encounter
--- OUTSIDE RECORDS SUMMARY | 2025-05-13 23:00 | XMS_ITS | Encounter Summary ---
Author Organization [employer] Address 75 [facility] 7t [place] [address] Care Team Providers Care Port Purser Name Role Phone Davis Lucas CNP Primary Care Provider [phone] [phone] Encounter Details Date Type Department Care Team ([facility] st Contact Info) Description 03/20/2025 Results Follow-Up [facility] CHC MED & PEDS [address] [place], [place] [phone] Aisha Munson MD 505 [place] [address] POCT Urinalysis, Chlamydia/N. Gonorrhoeae RNA, TMA, Vaginal, [...] on filedocumented in this encounter Care Teams Port Purser Relationship Specialty Start Date End Date Davis Lucas CNP PCP - General Family Medicine 01/14/25 documented as of this encounter
--- OUTSIDE RECORDS SUMMARY | 2025-05-13 23:00 | XMS_ITS | Encounter Summary ---
Author Organization [employer] Address [address] [facility] 7t [place] [address] Care Team Providers Care Deputy Sheriff K9 Handler Name Role Phone Davis Lucas CNP Primary Care Provider [phone] [phone] Encounter Details Date Type Department Care Team ([facility] st Contact Info) Description 04/14/2025 Results Follow-Up [facility] CHC MED & PEDS [address] [place], [place] [phone] Aisha Munson MD 505 [place] [address] Hemoglobin A1c, Basic Metabolic Panel Social History [...] on filedocumented in this encounter Care Teams Deputy Sheriff K9 Handler Relationship Specialty Start Date End Date Davis Lucas CNP PCP - General Family Medicine 01/14/25 documented as of this encounter
--- OUTSIDE RECORDS SUMMARY | 2025-05-13 23:00 | XMS_ITS | Encounter Summary ---
Author Organization [employer] Address [address] [facility] 7t [place] [address] Care Team Providers Care Raftsman Name Role Phone Davis Lucas CNP Primary Care Provider [phone] [phone] Encounter Details Date Type Department Care Team (Latest Contact Info) Description 05/13/2025 Travel Social History Tobacco Use Types Packs/Day [...] Health Questionnaire-2 Score 3 05/13/2025 Comments No Sex and Gender Information Value Date Recorded Sex Assigned at Female 04/04/2022 10:33 AM EDT Legal Sex Female 10:33 AM EDT Gender Identity Female 04/04/2022 10:33 AM EDT Sexual Orientation Straight 08/23/2024 3: 38 PM EDT documented as of this encounter Functional Status * Over the past 2 weeks, how often have you been bothered by any of the following problems? Question Answer Date of Assessment Author Patient Health Questionnaire-2 Score 3 12/0 02/2025 1:16 PM Cece Garzon MA * Little interest or pleasure in doing things Answer Date of Assessment Author Several days 05/13/2025 1:16 PM Cece Garzon MA * Feeling down, depressed, or hopeless Answer Date of Assessment Author More than half the days 05/13/2025 1:16 PM Cece Back MA * Trouble falling or staying asleep, or sleeping too much Answer Date of Assessment Author More than half the days 05/13/2025 1:16 PM Cece Back MA * Feeling tired or having little energy Answer Date of Assessment Author Not at all 05/13/2025 1:16 PM Cece Garzon MA * Poor appetite or overeating Answer Date of Assessment Author More than half the days 05/13/2025 1:16 PM Cece Back MA * Feeling bad about yourself - or that you are a failure or have let yourself or your family down Answer Date of Assessment Author Not at all 05/13/2025 1:16 PM Cece Garzon MA * Trouble concentrating on things, such as reading the newspaper or watching television Answer Date of Assessment Author Nearly every day 05/13/2025 1:16 PM Cece Garzon MA * Moving or speaking so slowly that other people could have noticed? Or the opposite - being so fidgety or restless that you have been moving around a lot more than usual. Answer Date of Assessment Author Several days 05/13/2025 1:16 PM Cece Garzon MA * Thoughts that you would be [...] Quigley MA documented as of this encounter Plan of Treatment Not on file documented as of this encounter Visit Diagnoses Not on filedocumented in this encounter Additional Health Concerns Assessment Noted Time PHQ-9 Depression Total Score: 11 025 1:16 PM EST documented as of this encounter Care Teams Raftsman Relationship Specialty Start Date End Date Davis Lucas CNP PCP - General Family Medicine 01/14/25 documented as of this encounter
--- OUTSIDE RECORDS SUMMARY | 2025-05-13 23:00 | XMS_ITS | Clinical Summary ---
Author Organization [employer] Address 75 [facility] 7t [place] [address] Care Team Providers Care Respiratory Therapy Aide Name Role Phone Davis Lucas CNP Primary Care Provider [phone] [phone] Allergies No known active allergies Medications aluminum chloride (Drysol) 20 % external solution Leave on skin for 6-8 hrs; wash off next morning with soap & water. Wear a t-shirt while sleeping. Wait at least 2 hours after bathing before applying. Do not apply to wounds or broken, irritated skin. 35 mL 3 05/24/20 23 Active oxybutynin (Ditropan) 5 MG tabletIndication s:Urinary frequency Take 1 tablet (5 mg) by mouth 3 times daily. 90 tablet 04/14/20 25 026 Active acetaminophen (Tylenol) 500 MG tablet Take 2 tablets (1,000 mg) by mouth every 6 (six) hours if needed for moderate pain or fever for up to 25 doses. 50 tablet 5 11:14 AM EST 05/05/20 25 Active Blood Pressure kit 1 each 2 times daily. 1 kit 05/05/20 25 026 Active etonogestrel-elu ting 68 mg contraceptive implant 1 each by Implant route 1 (one) time. Active polyethylene glycol, PEG, 3350 (MiraLax) 17 GM/SCOOP powder Take 17 g by mouth Once per day. 527 g 2 5 5:36 PM EST 05/08/20 25 Active senna-docusate sodium (Senokot-S) 8.6-50 MG tablet Take 1 tablet by mouth Once per day. 180 tablet 5 5:36 PM EST 05/08/20 25 Active docusate sodium (Colace) 100 MG capsule Take 1 capsule (100 mg) by mouth 2 times daily. 60 capsule 5 5:36 PM EST 05/08/20 25 Active metroNIDAZOLE (Metrogel) 0.75 % vaginal gel One applicatorful twice a week for 12 weeks. 70 g 4 5 1:58 PM EST 05/13/20 25 Active metroNIDAZOLE (Flagyl) 500 MG tablet Take 1 tablet (500 mg) by mouth after breakfast and after evening meal for 7 days. 14 tablet 5 11:14 AM EST 05/05/20 25 025 levonorgestrel (Plan B One-Step) 1.5 MG tablet Take 1 tablet by mouth. 10/01/19 20 025 Discontinu ed(Therapy completed) Active Problems Problem Noted Date Diagnosed Date Cervical cancer screening 05/09/2025 Assessment & Plan (05/09/2025 8:19 AM EST): 35 y.o. here for cervical cancer screening. Will continue monitoring following ASCCP guidelines. Bacterial vaginosis 05/08/2025 Class 2 obesity 05/08/2025 Genitourinary Chlamydia infection 05/08/2025 S/P appendectomy 05/05/2025 Encounters Date Type Department Care Team Description 05/13/2025 1:00 PM EST Office Visit [facility] [address] [place] [phone] Gina Dickson CNM Dysuria (Primary Dx); Vaginal discharge 05/13/2025 Travel 05/12/2025 Telephone [facility] [address] [place] [address] Davis Lucas CNP chart prep 05/12/2025 Telephone [facility] [address] [place] [address] Gina Dickson CNM CHART PREP 05/08/2025 1:30 PM EST Office Visit [facility] [address] [place] [address] Kelley Tran MD Cervical cancer screening (Primary Dx) 05/08/2025 Travel 05/06/[address] [address] Vidal Newton MD 05/05/2025 9:20 AM EST Office Visit [facility] WALK-IN [address] [address] Vidal Newton MD Dysuria (Primary Dx); Suprapubic pain; Vaginal discharge; Elevated blood pressure reading in office without diagnosis of hypertension 05/05/2025 Travel 04/28/2025 Patient Outreach [facility] [address] [place] [address] Davis Lucas CNP Pre-visit Planning ([facility] unable to reach [facility]) 04/14/2025 10:45 AM EST Office Visit [facility] [address] [place] [address] Aisha Munson MD Urinary frequency (Primary Dx) 04/14/2025 Results Follow-Up [facility] [address] [place] [address] Aisha Munson MD Hemoglobin A1c, Basic Metabolic Panel 04/14/2025 Travel 04/09/2025 Telephone [facility] [address] [place] [address] Davis Lucas CNP Nurse Triage 03/24/[address] [address] Davis Lucas CNP Results 03/20/2025 Results Follow-Up [facility] [address] [place] [address] Aisha Munson MD POCT Urinalysis, Chlamydia/N. Gonorrhoeae RNA, TMA, Vaginal, Bacterial Vaginosis Panel 03/19/2025 2:45 PM EDT Office Visit [facility] [address] [place] [address] Aisha Munson MD Acute vaginitis (Primary Dx); Urinary frequency; Dietary counseling; Exercise counseling; Overweight 03/19/2025 Travel 03/19/[address] [address] Davis Lucas CNP Nurse Triage 03/06/2025 Results Follow-Up [facility] [address] [place] [address] Ledy Rees, RN POCT Urinalysis, Bacterial Vaginosis Panel 03/06/2025 Orders Only [facility] [address] [place] [address] Aisha Munson MD Bacterial vaginosis (Primary Dx) 03/05/2025 2:40 PM EDT Office Visit [facility] [address] [place] [address] Aisha Munson MD Urinary frequency (Primary Dx); Screen for STD (sexually transmitted disease) 03/05/2025 Travel 03/05/2025 Telephone [facility] [address] [place] [address] Davis Lucas CNP Nurse Triage from Last [...] (159 lb) 05/13/2025 1:14 PM EST Height 157.5 cm (5' 2 ) 05/08/2025 1:32 PM EST Body Mass Index 29.08 05/08/2025 1:32 PM EST Plan of Treatment Health Maintenance Due Date Last Done Comments SDOH Screening 1990 Disability Screening 1990 HPV Vaccines (1 - 3-dose series) 2005 Hepatitis B Vaccines (1 of 3 - 19+ 3-dose series) 2009 COVID-19 Vaccine (2024-2 6 season) 2025 Influenza Vaccine (#1) 2025 Cervical Cancer Screening 06/08/2025 HPV/Cotest 06/08/2025 06/08/2022 Pap Smear 06/08/2025 06/08/2022 Depression Monitoring 11/11/2025 05/13/2025 , 05/13/2025 Alcohol/Substance Use Screening 05/13/2026 05/13/2025 Family Planning (PISQ) 05/13/2026 05/13/2025 Tobacco Screening 05/13/2026 05/13/2025 DTaP/Tdap/Td Vaccines (2 - T d or [...] 2+ Urine 05/05/2025 10:3 4 AM EST Vidal Newton MD POINT OF CARE TEST ENTER/EDIT OR DERABLES Final Result * (ABNORMAL) POCT urinalysis dipstick manually resulted (CPT 14125) (05/05/2025 10:34 AM EST) Only the most [...] DETECTION BY PCR NOT DETECTED Not Detect [facility] BACTERIAL VAGINOSIS DETECTION BY PCR NEGATIVE Negative [facility] Comment:The BV organism targ ets [...] DETECTION BY PCR NOT DETECTED Not Detect [facility] Emma glab krusei PCR NOT DETECTED Not Detect [facility] Swab Vaginal structure / Unknown 05/05/2025 10:26 AM EST 05/05/2025 4:25 PM EST us Vidal Newton MD LAB MICROBIOLOGY - GENERAL ORDER ANAIS Final Result [facility] [address] [place] [phone] * Chlamydia/N. Gonorrhoeae RNA, TMA, Urogenitial (05/05/2025 10:26 AM EST) Only the most recent of2 resultswithin the time period is included. CT PCR NOT DETECTED Not Detect. [facility] Comment:A not detected test result [...] psychologicalconsequences. NG PCR NOT DETECTED Not Detect. [facility] Comment:A not detected test result [...] MICROBIOLOGY - GENERAL ORDER ANAIS Final Result [facility] [address] [place] [phone] * Hemoglobin A1c (04/14/2025 11:57 AM EST) Hemoglobin A1c 5.3 <6.0 % [facility] Comment:Hemoglobin A1C Refer ence Range Adults: 4.8 - 6.0 % Non diabetic: < 6.0 % Goal: < 7.0 %Additional Action Suggested: > 8.0 %Note: Hemoglobin A1c results are invalid for patients with abnormal amounts of HbF. Blood transfusions may impact the HbA1c concentration in the patient sample. Estimated Average Glucose 105 mg/dL [facility] Comment:eAG = Estimated ave rage glucose which is %A1C expressed asaverage glucose, using the formula of the F9F-YwiimxwDtsqadz Glucose study (ADAG), Diabetes Care, Vol.31,#8,2007 Blood Venous blood specimen / Unknown 04/14/2025 11:57 AM EST 04/14/2025 2:20 PM EST us Aisha Munson MD LAB BLOOD ORDERABLES Final Result [facility] [address] [place] [address] [phone] * (ABNORMAL) Basic Metabolic Panel (04/14/2025 11:57 AM EST) Sodium 139 135 - 145 mmol/L [facility] Potassium 3.6 3.3 - 5.1 mmol/L [facility] Chloride 106 96 - 108 mmol/L [facility] Carbon Dioxide 25 22 - 29 mmol/L [facility] Anion Gap 12 12 - 20 [facility] Urea Nitrogen (BUN) 8(L) 9 - 16 mg/dL [facility] Creatinine, Serum 0.63 0.5 - 1.4 mg/dL [facility] Estimated Glomerular Filt Rate >60 [facility] Comment:Chronic Kidney Disea se: Estimated GFR < 60 mL/min/1.74a3Vxkxax Kidney Disease: Estimated GFR < 15 mL/min/1.73m2 Glucose 86 60 - 115 mg/dL [facility] Calcium 9.4 8.4 - 10.2 mg/dL [facility] Blood Venous blood specimen / Unknown 04/14/2025 11:57 AM EST 04/14/2025 2:21 PM EST us Aisha Munson MD LAB BLOOD ORDERABLES Final Result [facility] [address] [place] [address] [phone] * Culture, Urine, Routine (03/19/2025 3:37 PM EDT) Only the most recent of2 resultswithin the time period is included. Urine Urine specimen obtained by clean catch procedure / Unknown 03/19/2025 3:37 PM EDT 03/19/2025 6:41 PM EDT Comment:UACC Narrative [facility] - 03/21/2025 10:22 AM EDT Urine Culture No growth. Specimen Source: Urine clean catch us Aisha Munson MD LAB MICROBIOLOGY - GENERAL ORDERABLES Final Result [facility] [address] [place] [address] [phone] * (ABNORMAL) Urinalysis, Complete, with Reflex to Culture (03/19/2025 10:09 AM EDT) Color Urine Yellow [facility] Appearance Urine Clear [facility] PH 5.5 5.0 - 9.0 [facility] Glucose Urine UA Negative Negative mg/dL [facility] Urine Blood Negative Negative [facility] Specific [place] - Urine 1.020 1.005 - 1.025 [facility] Urine Protein Negative Neg-Trace mg/dL [facility] Urine Ketones Negative Negative mg/dL [facility] Nitrite Urine Negative Negative [facility] Leukocyte Esterase Urine Small (1+)(A) Negative [facility] RBC Urine 0-2 0 - 2 /HPF [facility] Urine WBC 0-5 0 - 5 /HPF [facility] Urine Squamous Epithelial Cell 3-5 0 - 2 /HPF [facility] Urine Bacteria Trace None Seen [facility] Hyaline Casts, Urine 0-2 0 - 2 /LPF [facility] 03/19/2025 10:0 9 AM EDT 03/19/2025 1:58 PM EDT Narrative [facility] - 03/19/2025 2:32 PM EDT [id number], Clean Catch us Aisha Munson MD LAB URINE ORDERABLES Final Result Performing Organization Address City/[facility]/ZIP Co de Phone Number [facility] [address] [place] [phone] * Hepatitis C Antibody with Reflex to HCV, RNA, Quantitative, Real-Time PCR (03/19/2025 9:57 AM EDT) Hepatitis C Antibody Nonreactive Nonreactive [facility] Comment:Antibodies to HCV no t detected; does not exclude early acuteHCV infection. Blood Venous blood specimen / Unknown 03/19/2025 9:57 AM EDT 03/19/2025 2:07 PM EDT us Aisha Munson MD LAB BLOOD ORDERABLES Final Result Performing Organization Address [facility]/ZIP Co de Phone Number [facility] [address] [place] [phone] * RPR (Monitor) with Reflex to??Titer (03/19/2025 9:57 AM EDT) RPR (Monitor) w/Refl Titer NON-REACTI VE NON-REACT BETTYE [facility] Comment:THIS TEST WAS PERFOR MED AT:[facility] [place] [phone] MUHAMMAD MD Rapid Plasma Reagin Ab Titer TNP [facility] Blood Venous blood specimen / Unknown 03/19/2025 9:57 AM EDT 03/19/2025 2:07 PM EDT us Aisha Munson MD LAB BLOOD ORDERABLES Final Result Performing Organization Address [facility]/ZIP Co de Phone Number [facility] [address] [place] [phone] * HIV-1/2 Antigen and Antibodies, Fourth Generation, with Reflexes (03/19/2025 9:57 AM EDT) HIV AB/AG Nonreactive Nonreactive [facility] Comment:HIV-1 p24 Ag and/or HIV-1/HIV-2 Ab not detected.A test result that is nonreactive does not exclude thepossibility of exposure to or infection with HIV-1 and/orHIV-2. Nonreactive results in this assay for individualswith prior exposure to HIV-1 and/or HIV-2 may be due toantigen and antibody levels that are below the limit ofdetection of this assay.The [employer] HIV Ag/Ab Combo assay result andsupplemental assay results should be interpreted inconjunction with the patient's clinical presentation,history and other laboratory results. If the results areinconsistent with clinical evidence, additional testing issuggested to confirm the result. Blood Venous blood specimen / Unknown 03/19/2025 9:57 AM EDT 03/19/2025 2:07 PM EDT Aisha Munson MD LAB BLOOD ORDERABLES Final Result [facility] [address] [place] [phone] * (ABNORMAL) Hm Pap Smear (06/08/2022) Pap Epithelial cell abnormality(A ) Negative for intraephithelial lesion or malignancy, Other Comment:ASCUS HPV Not Detected Undetected, Indeterminate, Quantitative, Not Detected [facility] Provider HEALTH MAINTENANCE Final Result from Last 3 Months or Most Recently Relevant to Health Maintenance Insurance * Guarantor: Soumya Garcia Account Type Relation to Patient Date of Phone Billing Address Personal/Family Self 1990 [address] [address] [employer] C3 Care Teams Respiratory Therapy Aide Relationship Specialty Start Date End Date Davis Lucas CNP PCP - General Family Medicine 01/14/25
--- OUTSIDE RECORDS SUMMARY | 2025-05-13 23:00 | XMS_ITS | Encounter Summary ---
Author Organization [employer] Address [address] [facility] [address] [place] [address] Care Team Providers Care Assembly Detailer Name Role Phone Davis Lucas CNP Primary Care Provider [phone] Encounter Details Date Type Department Care Team (Late st Contact Info) Description 03/06/2025 Orders Only [facility] [address] [place], [place] [phone] Aisha Munson MD [address] [place] [address] Bacterial vaginosis (Primary Dx) Social History Tobacco [...] on file documented as of this encounter Procedures Procedure Name Priority Date/Time Associated Diagnosis Comments URINALYSIS, COMPLETE, WITH REFLEX TO CULTURE Routine 03/19/2025 10:09 AM EDT Bacterial vaginosis CULTURE, URINE, ROUTINE Routine 03/19/2025 12:00 AM EDT Bacterial vaginosis documented in this encounter Results * (ABNORMAL) Urinalysis, Complete, with Reflex to Culture (03/19/2025 10:09 AM EDT) Color Urine Yellow [facility] Appearance Urine Clear [facility] PH 5.5 5.0 - 9.0 [facility] Glucose Urine UA Negative Negative mg/dL [facility] Urine Blood Negative Negative [facility] Specific [place] - Urine 1.020 1.005 - 1.025 [facility] Urine Protein Negative Neg-Trace mg/dL [facility] Urine Ketones Negative Negative mg/dL [facility] Nitrite Urine Negative Negative [facility] Leukocyte Esterase Urine Small (1+)(A) Negative [facility] RBC Urine 0-2 0 - 2 /HPF [facility] Urine WBC 0-5 0 - 5 /HPF [facility] Urine Squamous Epithelial Cell 3-5 0 - 2 /HPF [facility] Urine Bacteria Trace None Seen [facility] Hyaline Casts, Urine 0-2 0 - 2 /LPF [facility] 03/19/2025 10:0 9 AM EDT 03/19/2025 1:58 PM EDT Narrative [facility] - 03/19/2025 2:32 PM EDT [id number], Clean Catch us Aisha Munson MD LAB URINE ORDERABLES Final Result Performing Organization Address [facility] Co de Phone Number [facility] [address] [place] [phone] * Culture, Urine, Routine (03/19/2025 12:00 AM EDT) Urine Urine specimen obtained by clean catch procedure / Unknown 03/19/2025 03/19/2025 Comment:UACC Narrative [facility] - 03/20/2025 10:56 AM EDT Urine Culture No growth. Specimen Source: Urine clean catch Aisha Munson MD LAB MICROBIOLOGY - GENERAL ORDERABLES Final Result Performing Organization Address [facility]/ZIP Co de Phone Number [facility] [address] [place] [phone] documented in this encounter Visit Diagnoses Diagnosis Bacterial vaginosis- Primary Unspecified vaginitis and vulvovaginitis documented in this encounter Care Teams Assembly Detailer Relationship Specialty Start Date End Date Davis Lucas CNP PCP - General Family Medicine 01/14/25 documented as of this encounter
--- OUTSIDE RECORDS SUMMARY | 2025-05-13 23:00 | XMS_ITS | Clinical Summary ---
Author Organization [facility] ity Address [address] [place] [address] Care Team Providers Care Marriage Performer Name Role Phone Balaji See MD Primary Care Provider [phone] Social History Tobacco Use Types Packs/Day Years [...] age to complete this topic Care Teams Marriage Performer Relationship Specialty Start Date End Date Balaji See MD [address] [place] [address] PCP - General Internal Medicine 05/16/16
== END 2025-05-13 16:35 ==
LOC: HO.HHCLNP 16:34
PROVIDERS: Visit Provider Emergency Medicine
DX: R30.0 Dysuria (principal)
CPT/HCPCS: 87086

== ENCOUNTER 2025-05-22 16:08 | Outpatient (REF) | payer MEDICAID, SELFPAY ==
--- OUTSIDE RECORDS SUMMARY | 2025-05-22 13:40 | XMS_ITS | Encounter Summary ---
Author Organization [employer] Address [address] [facility] [address] [place] [address] Care Team Providers Care Saddle Cutter Name Role Phone Davis Lucas CNP Primary Care Provider [phone] Encounter Details Date Type Department Care Team (Late st Contact Info) Description 05/22/2025 1:40 PM EST Office Visit [facility] [address] [place], [place] [phone] Burning with urination (Primary Dx) Social History Tobacco Use Types Packs/Day Years Used Date Smoking Tobacco: Former Cigarettes Passive Smoke Exposure: Past Smokeless Tobacco: Never Tobacco Cessation:Counseling Given: Not [...] Sign Reading Time Taken Comments Blood Pressure 137/82 05/22/2025 1:12 PM EST Pulse 72 05/22/2025 1:12 PM EST Temperature 36.1 C (97 F) 05/22/2025 1:12 PM EST Respiratory Rate 20 05/22/2025 1:12 PM EST Oxygen Saturation 99% 05/22/2025 1:12 PM EST Inhaled Oxygen Concentration - - Weight 73.2 kg (161 lb 6 oz) 05/22/2025 1:12 PM EST Height 157.5 cm (5' 2 ) 05/22/2025 1:12 PM EST Body Mass Index 29.52 05/22/2025 1:12 PM EST documented in this encounter Plan of Treatment Scheduled Orders Name Type Priority Associated Diagnoses Orde r Schedule Bacterial Vaginosis Microbiology Routine Burning with urination Ordered: 05/22/2025 Chlamydia/N. Gonorrhoeae RNA, TMA, Urogenitial Microbiology Routine Burning with urination Ordered: 05/22/2025 Culture, Urine, Routine Microbiology Routine Burning with urination Ordered: 05/22/2025 documented as of this encounter Procedures Procedure Name Priority Date/Time Associated Diagnosis Comments POCT , URINE Routine 05/22/2025 1:18 PM EST Burning with urination POCT URINALYSIS DIPSTICK Routine 05/22/2025 1:14 PM EST Burning with urination documented in this encounter Results * POCT Urine (05/22/2025 1:18 PM EST) Preg Test, Ur Negative Negative, Indeterminate, None Detected, Trace, 3+, Specimen unsatisfactory for evaluation, Weakly Positive, 1+, 2+ QC Media Lot # [id number] Lot# Expiration Date 122, Urine 05/22/2025 1:18 PM EST Dalia Crawford DO POINT OF CARE TEST ENTER/PORTIA T ORDERABLES Final Result * POCT Urinalysis (05/22/2025 1:14 PM EST) Color, UA Light Yellow Clarity, UA Clear Glucose, UA Negative Bilirubin, UA Negative Ketones, UA Negative Spec Grav, UA 1.025 Blood, UA Negative Negative, None Detected pH, UA 7.5 Protein, UA Negative Urobilinogen, UA 1.0 Leukocytes, UA Negative Negative, Rare, Trace, 1+ (17), 2+ (35), 3+ (70), Trace (15) Nitrite, UA Negative Negative, None Detected Appearance, UA clear QC Media Lot # [id number] Lot# Expiration Date [id number] Urine (Urine, Random) 05/22/2025 1:14 PM EST Dalia Crawford DO POINT OF CARE TEST ENTER/PORTIA T ORDERABLES Final Result documented in this encounter Visit Diagnoses Diagnosis Burning with urination- Primary Dysuria documented in this encounter Additional Health Concerns Assessment Noted Time PHQ-9 Depression Total Score: 11 025 1:16 PM EST documented as of this encounter Care Teams Saddle Cutter Relationship Specialty Start Date End Date Davis Lucas CNP PCP - General Family Medicine 01/14/25 documented as of this encounter
--- OUTSIDE RECORDS SUMMARY | 2025-05-22 19:37 | XMS_ITS | Encounter Summary ---
Author Organization [employer] Address [address] [facility] [address] [place] [address] Care Team Providers Care Industrial Spray Painter Name Role Phone Davis Lucas CNP Primary Care Provider [phone] Encounter Details Date Type Department Care Team (Late st Contact Info) Description 05/16/2025 Results Follow-Up [facility] [address] [place] [address] Vidal Newton MD [address] [place] [address] Culture, Urine, Routine Social History Tobacco Use Types Packs/Day Years [...] documented as of this encounter Care Teams Industrial Spray Painter Relationship Specialty Start Date End Date Davis Lucas CNP PCP - General Family Medicine 01/14/25 documented as of this encounter
--- OUTSIDE RECORDS SUMMARY | 2025-05-22 19:37 | XMS_ITS | Encounter Summary ---
Author Organization [employer] Address [address] [facility] [address] [place] [address] Care Team Providers Care Barrel Raiser Name Role Phone Davis Lucas CNP Primary Care Provider [phone] Encounter Details Date Type Department Care Team ([facility] st Contact Info) Description 04/14/2025 Results Follow-Up [facility] [address] [place], [place] [phone] Aisha Munson MD [address] [place] [address] Hemoglobin A1c, Basic Metabolic Panel Social History [...] on filedocumented in this encounter Care Teams Barrel Raiser Relationship Specialty Start Date End Date Davis Lucas CNP PCP - General Family Medicine 01/14/25 documented as of this encounter
--- OUTSIDE RECORDS SUMMARY | 2025-05-22 19:37 | XMS_ITS | Clinical Summary ---
Author Organization [employer] Address [address] [facility] 7t [place] [address] Care Team Providers Care Fish Liver Sorter Name Role Phone Davis Lucas CNP Primary Care Provider [phone] Allergies No known active allergies Medications aluminum [...] 5 1:58 PM EST 05/13/20 25 Active fluconazole (Diflucan) 150 MG tablet Take 1 tablet (150 mg) by mouth 1 (one) time for 1 dose. Repeat in 3 days 2 tablet 5 2:25 PM EST 05/22/20 25 025 Active terconazole (Terazol 7) 0.4 % vaginal cream Insert 1 applicator into the vagina at bedtime for 7 days. 45 g 5 2:25 PM EST 05/22/20 25 026 Active metroNIDAZOLE (Flagyl) 500 MG tablet [...] Encounters Date Type Department Care Team Description 05/22/2025 1:40 PM EST Office Visit [facility] [address] [place] [phone] Burning with urination (Primary Dx) 05/22/2025 Travel 05/16/2025 Results Follow-Up [facility] [address] [place] [phone] Vidal Newton MD Culture, Urine, Routine 05/13/2025 1:00 PM EST Office Visit [address] [address] Gina Dickson CNM Dysuria (Primary Dx); Vaginal discharge 05/13/2025 Travel 05/12/2025 Telephone [facility] [address] [place] [address] Davis Lucas CNP chart prep 05/12/[address] [address] Gina Dickson CNM CHART PREP 05/08/2025 1:30 PM EST Office Visit [facility] [address] [place] [address] Kelley Tran MD Cervical cancer screening (Primary Dx) 05/08/2025 Travel 05/06/[address] [address] Vidal Newton MD 05/05/2025 9:20 AM EST Office Visit [facility] [address] [place] [phone] Vidal Newton MD Dysuria (Primary Dx); Suprapubic pain; Vaginal discharge; Elevated blood pressure reading in office without diagnosis of hypertension 05/05/2025 Travel 04/28/2025 Patient Outreach [facility] [address] [place] [address] Davis Lucas CNP Pre-visit Planning ([facility] unable to reach [facility]) 04/14/2025 10:45 AM EST Office Visit [facility] [address] [place] [address] Aisha Munson MD Urinary frequency (Primary Dx) 04/14/2025 Results Follow-Up [facility] [address] [place] [address] Aisha Munson MD Hemoglobin A1c, Basic Metabolic Panel 04/14/2025 Travel 04/09/2025 Telephone [facility] [address] [place] [address] Davis Lucas CNP Nurse Triage 03/24/[address] [address] Davis Lucas CNP Results 03/20/2025 Results Follow-Up [facility] [address] [place] [address] Aisha Munson MD POCT Urinalysis, Chlamydia/N. Gonorrhoeae RNA, TMA, Vaginal, Bacterial Vaginosis Panel 03/19/2025 2:45 PM EDT Office Visit [facility] [address] [place] [address] Aisha Munson MD Acute vaginitis (Primary Dx); Urinary frequency; Dietary counseling; Exercise counseling; Overweight 03/19/2025 Travel 03/19/[address] [address] Davis Lucas CNP Nurse Triage 03/06/2025 Results Follow-Up [facility] [address] [place] [address] Ledy Rees, CUONG POCT Urinalysis, Bacterial Vaginosis Panel 03/06/2025 Orders Only [facility] [address] [place] [address] Aisha Munson MD Bacterial vaginosis (Primary Dx) 03/05/2025 2:40 PM EDT Office Visit [facility] [address] [place] [address] Aisha Munson MD Urinary frequency (Primary Dx); Screen for STD (sexually transmitted disease) 03/05/2025 Travel 03/05/[address] [address] Davis Lucas CNP Nurse Triage from Last [...] Mass Index 29.52 05/22/2025 1:12 PM EST Plan of Treatment Health Maintenance Due Date Last Done Comments SDOH Screening 1990 Disability Screening 1990 HPV Vaccines (1 - 3-dose series) 2005 Hepatitis B Vaccines (1 of 3 - 19+ 3-dose series) 2009 COVID-19 Vaccine ( - 2024-2 6 season) 2025 Influenza Vaccine (#1) 2025 HPV/Cotest 06/08/2025 06/08/2022 Depression Monitoring 11/11/2025 05/13/2025 , 05/13/2025 Alcohol/Substance Use Screening 05/13/2026 05/13/2025 Family Planning (PISQ) 05/13/2026 05/13/2025 Tobacco Screening 05/22/2026 05/22/2025 Cervical Cancer Screening 05/08/2028 Pap Smear 05/08/2028 05/08/2025, 06/08/2022 DTaP/Tdap/Td Vaccines (2 - T d [...] 05/22/2025 1:14 PM EST Burning with urination CULTURE, URINE, ROUTINE Routine 05/13/2025 12:00 PM EST Dysuria PAP SMEAR Routine 05/08/2025 12:00 AM EST Cervical cancer screening POCT , URINE Routine 05/05/2025 10:34 AM [...] Relevant to Health Maintenance Results * POCT Urine (05/22/2025 1:18 PM EST) Only the most recent of2 resultswithin the time period is included. Preg Test, Ur Negative Negative, Indeterminate, None Detected, Trace, 3+, Specimen unsatisfactory for evaluation, Weakly Positive, 1+, 2+ QC Media Lot # [id number] Lot# Expiration Date [id number] Urine 05/22/2025 1:18 PM EST OrderGroovejaden ARKeX POINT OF CARE TEST ENTER/PORTIA T ORDERABLES Final Result * POCT Urinalysis (05/22/2025 1:14 PM EST) Only the most recent of4 resultswithin the time period is included. Color, UA Light Yellow Clarity, UA Clear [...] Media Lot # [id number] Lot# Expiration Date [id number] Urine (Urine, Random) 05/22/2025 1:14 PM EST SayNowedith ARKeX POINT OF CARE TEST ENTER/PORTIA T ORDERABLES Final Result * Culture, Urine, Routine (05/13/2025 12:00 PM EST) Only the most recent of3 resultswithin the time period is included. Urine Urine specimen obtained by clean catch procedure / Unknown 05/13/2025 12:00 PM EST 05/13/2025 4:34 PM EST Comment:[facility] - 05/15/2025 10:31 AM EST Urine Culture No growth. Specimen Source: Urine clean catch us Vidal Newton MD LAB MICROBIOLOGY - GENERAL ORDER ANAIS Final Result [facility] [address] [place] [phone] * Pap Smear (05/08/2025 12:00 AM EST) Swab Cervical swab / Unknown 05/08/2025 05/09/2025 7:53 AM EST [facility] - 05/16/2025 3:54 PM EST ----- ------- Name: Soumya Garcia Age/Sex: 35/F : 1990 Unit#: [id number] Attend Dr: Kelley Tran MD Re05/08/25 Status: DEP REF Location: HO.HHCLNP Disch: ----- ------- SPEC : [id number] RECD: 05/09/25-0753 STATUS: NERY WILDER NUM: [id number] NICKO: 05/08/25-[address]: Kelley Tran MD ENTERED: 05/09/25 SP TYPE: Pap [facility] DR: ORDERED: Pap Smear, PAP path review Interpretation ABNORMAL PAP TEST. Satisfactory for evaluation, with mildly dysplastic squamous cells / HPV cytopathic change (DANE 1; low grade squamous intraepithelial lesion). Clinical Information LMP: 04/14/2025 Previous PAP test: Unknown date, ASCUS, nHRHPV Other history: Cervical cancer screening Material Received ThinPrep-Vaginal/Cervical PAP Disclaimer As of March 27, 2024, the technical services to include automated prescreening performed by the ThinPrep Imaging System, PAP screening and HPV testing will be performed at [facility] (CLIA #[id number]), [address] [place] [address]. Testing for HPV was performed using the [email or web address] DripDrop0 system. The presence of HPV in the female genital tract is associated with a number of diseases, including cervical carcinoma. The HPV DNA high risk pool tests for HPV 31, 33, 35, 39, 45, 51, 52, 56, 58, 59, 66 and 68. The testing for HPV 16 and 18 genotypes has also been performed. A positive result indicates detection of nucleic acid sequences from one or more subtypes, whereas a negative result indicates such sequences were not detected. All professional services are performed by [facility] ([address] [place] [address]; ; CLIA #[id number]). The PAP Test is a screening procedure with the inherent possibility of both false negative and false positive results. Results should be interpreted in the context of historic and current clinical findings. Reliability of the PAP Test is enhanced by performing the test on a regular repetitive basis. ----- ------- Signed (signature on file) Suyapa Reina MD 05/16/25 1554 ----- ------- END OF REPORT Kelley Tran MD LAB CYTOLOGY ORDERABLES Final Result Performing Organization Address [facility] Co de Phone Number [facility] [address] [place] [address] [phone] * Bacterial Vaginosis (05/05/2025 10:26 AM EST) Only the most recent of3 resultswithin the time period is included. TRICHOMONAS VAGINALIS DETECTION BY PCR NOT DETECTED Not Detect [facility] BACTERIAL VAGINOSIS DETECTION BY PCR NEGATIVE Negative [facility] Comment:The BV organism targ ets of [...] DETECTION BY PCR NOT DETECTED Not Detect [facility] Emma glab krusei PCR NOT DETECTED Not Detect [facility] Swab Vaginal structure / Unknown 05/05/2025 10:26 AM EST 05/05/2025 4:25 PM EST Vidal Newton MD LAB MICROBIOLOGY - GENERAL ORDER ANAIS Final Result Performing Organization Address [facility] Co de Phone Number [facility] [address] [place] [address] [phone] * Chlamydia/N. Gonorrhoeae RNA, TMA, Urogenitial (05/05/2025 10:26 AM EST) Only the most recent of2 resultswithin the time period is included. CT PCR NOT DETECTED Not Detect. [facility] Comment:A not detected test result does [...] psychologicalconsequences. NG PCR NOT DETECTED Not Detect. [facility] Comment:A not detected test result does [...] MICROBIOLOGY - GENERAL ORDER ANAIS Final Result [facility] [address] [place] [phone] * Hemoglobin A1c (04/14/2025 11:57 AM EST) Hemoglobin A1c 5.3 <6.0 % [facility] Comment:Hemoglobin A1C Refer ence Range Adults: 4.8 - 6.0 % Non diabetic: < 6.0 % Goal: < 7.0 %Additional Action Suggested: > 8.0 %Note: Hemoglobin A1c results are invalid for patients with abnormal amounts of HbF. Blood transfusions may impact the HbA1c concentration in the patient sample. Estimated Average Glucose 105 mg/dL [facility] Comment:eAG = Estimated ave rage glucose which is %A1C expressed asaverage glucose, using the formula of the T0C-DamoycaOrljepu Glucose study (ADAG), Diabetes Care, Vol.31,#8,Jan. 2007 Blood Venous blood specimen / Unknown 04/14/2025 11:57 AM EST 04/14/2025 2:20 PM EST us Aisha Munson MD LAB BLOOD ORDERABLES Final Result [facility] [address] [place] [phone] * (ABNORMAL) Basic Metabolic Panel (04/14/2025 11:57 AM EST) Sodium 139 135 - 145 mmol/L [facility] Potassium 3.6 3.3 - 5.1 mmol/L [facility] Chloride 106 96 - 108 mmol/L [facility] Carbon Dioxide 25 22 - 29 mmol/L [facility] Anion Gap 12 12 - 20 [facility] Urea Nitrogen (BUN) 8(L) 9 - 16 mg/dL [facility] Creatinine, Serum 0.63 0.5 - 1.4 mg/dL [facility] Estimated Glomerular Filt Rate >60 [facility] Comment:Chronic Kidney Disea se: Estimated GFR < 60 mL/min/1.89v0Piusmf Kidney Disease: Estimated GFR < 15 mL/min/1.73m2 Glucose 86 60 - 115 mg/dL [facility] Calcium 9.4 8.4 - 10.2 mg/dL [facility] Blood Venous blood specimen / Unknown 04/14/2025 11:57 AM EST 04/14/2025 2:21 PM EST us Aisha Munson MD LAB BLOOD ORDERABLES Final Result Performing Organization Address City/[facility]/ZIP Co de Phone Number [facility] [address] [place] [phone] * (ABNORMAL) Urinalysis, Complete, with Reflex to Culture (03/19/2025 10:09 AM EDT) Color Urine Yellow [facility] Appearance Urine Clear [facility] PH 5.5 5.0 - 9.0 [facility] Glucose Urine UA Negative Negative mg/dL [facility] Urine Blood Negative Negative [facility] Specific [place] - Urine 1.020 1.005 - 1.025 [facility] Urine Protein Negative Neg-Trace mg/dL [facility] Urine Ketones Negative Negative mg/dL [facility] Nitrite Urine Negative Negative [facility] Leukocyte Esterase Urine Small (1+)(A) Negative [facility] RBC Urine 0-2 0 - 2 /HPF [facility] Urine WBC 0-5 0 - 5 /HPF [facility] Urine Squamous Epithelial Cell 3-5 0 - 2 /HPF [facility] Urine Bacteria Trace None Seen [facility] Hyaline Casts, Urine 0-2 0 - 2 /LPF [facility] 03/19/2025 10:0 9 AM EDT 03/19/2025 1:58 PM EDT Narrative [facility] - 03/19/2025 2:32 PM EDT [id number], Clean Catch us Aisha Munson MD LAB URINE ORDERABLES Final Result Performing Organization Address [facility]/ZIP Co de Phone Number [facility] [address] [place] [phone] * Hepatitis C Antibody with Reflex to HCV, RNA, Quantitative, Real-Time PCR (03/19/2025 9:57 AM EDT) Pathologist [facility] Hepatitis C Antibody Nonreactive Nonreactive [facility] Comment:Antibodies to HCV no t detected; does not exclude early acuteHCV infection. Blood Venous blood specimen / Unknown 03/19/2025 9:57 AM EDT 03/19/2025 2:07 PM EDT us Aisha Munson MD LAB BLOOD ORDERABLES Final Result Performing Organization Address [facility]/ZIP Co de Phone Number [facility] [address] [place] [phone] * RPR (Monitor) with Reflex to??Titer (03/19/2025 9:57 AM EDT) [facility] RPR (Monitor) w/Refl Titer NON-REACTI VE NON-REACT BETTYE [facility] Comment:THIS TEST WAS PERFOR MED AT:[facility] [address] [phone] MUHAMMAD MD Rapid Plasma Reagin Ab Titer TNP [facility] Blood Venous blood specimen / Unknown 03/19/2025 9:57 AM EDT 03/19/2025 2:07 PM EDT us Aisha Munson MD LAB BLOOD ORDERABLES Final Result Performing Organization Address [facility]/ZIP Co de Phone Number [facility] [address] [place] [phone] * HIV-1/2 Antigen and Antibodies, Fourth Generation, with Reflexes (03/19/2025 9:57 AM EDT) Pathologist [facility] HIV AB/AG Nonreactive Nonreactive [facility] Comment:HIV-1 p24 Ag and/or HIV-1/HIV-2 Ab not detected.A test result that is nonreactive does not exclude thepossibility of exposure to or infection with HIV-1 and/orHIV-2. Nonreactive results in this assay for individualswith prior exposure to HIV-1 and/or HIV-2 may be due toantigen and antibody levels that are below the limit ofdetection of this assay.The [employer] HIV Ag/Ab Combo assay result andsupplemental assay results should be interpreted inconjunction with the patient's clinical presentation,history and other laboratory results. If the results areinconsistent with clinical evidence, additional testing issuggested to confirm the result. Blood Venous blood specimen / Unknown 03/19/2025 9:57 AM EDT 03/19/2025 2:07 PM EDT Aisha Munson MD LAB BLOOD ORDERABLES Final Result [facility] [address] [place] [phone] * (ABNORMAL) Pap Smear (06/08/2022) Pap Epithelial cell abnormality(A ) Negative for intraephithelial lesion or malignancy, Other Comment:ASCUS HPV Not Detected Undetected, Indeterminate, Quantitative, Not Detected Historical Provider HEALTH MAINTENANCE Final Result from Last 3 Months or Most Recently Relevant to Health Maintenance [facility] Care Teams Fish Liver Sorter Relationship Specialty Start Date End Date Davis Lucas CNP PCP - General Family Medicine 01/14/25
--- OUTSIDE RECORDS SUMMARY | 2025-05-22 19:37 | XMS_ITS | Encounter Summary ---
Author Organization [employer] Address [address] [facility] [address] [place] [address] Care Team Providers Care Rug Cutter Name Role Phone Davis Lucas CNP Primary Care Provider [phone] Encounter Details Date Type Department Care Team (Latest Contact Info) Description 05/22/2025 Travel Social History Tobacco Use Types Packs/Day Years Used Date Smoking Tobacco: Former Cigarettes Passive Smoke Exposure: Past Smokeless Tobacco: Never Comments:Smokes 5 cig a [...] documented as of this encounter Care Teams Rug Cutter Relationship Specialty Start Date End Date Davis Lucas CNP PCP - General Family Medicine 01/14/25 documented as of this encounter
--- OUTSIDE RECORDS SUMMARY | 2025-05-22 19:37 | XMS_ITS | Encounter Summary ---
Author Organization [employer] Address [address] [facility] [address]t [place] [address] Care Team Providers Care Drug Coordinator Name Role Phone Davis Lucas CNP Primary Care Provider [phone] Encounter Details Date Type Department Care Team (Late st Contact Info) Description 03/06/2025 Orders Only [facility] [address] [place], [place] [phone] Aisha Munson MD [address] [place] [address] Bacterial vaginosis (Primary Dx) Social History Tobacco [...] (03/19/2025 10:09 AM EDT) Color Urine Yellow [facility] Appearance Urine Clear [facility] PH 5.5 5.0 - 9.0 [facility] Glucose Urine UA Negative Negative mg/dL [facility] Urine Blood Negative Negative [facility] Specific [place] - Urine 1.020 1.005 - 1.025 [facility] Urine Protein Negative Neg-Trace mg/dL [facility] Urine Ketones Negative Negative mg/dL [facility] Nitrite Urine Negative Negative [facility] Leukocyte Esterase Urine Small (1+)(A) Negative [facility] RBC Urine 0-2 0 - 2 /HPF [facility] Urine WBC 0-5 0 - 5 /HPF [facility] Urine Squamous Epithelial Cell 3-5 0 - 2 /HPF [facility] Urine Bacteria Trace None Seen [facility] Hyaline Casts, Urine 0-2 0 - 2 /LPF [facility] 03/19/2025 10:0 9 AM EDT 03/19/2025 1:58 PM EDT Narrative [facility] - 03/19/2025 2:32 PM EDT [id number], Clean Catch us Aisha Munson MD LAB URINE ORDERABLES Final Result Performing Organization Address [facility] Co de Phone Number [facility] [address] [place] [phone] * Culture, Urine, Routine (03/19/2025 12:00 AM EDT) Urine Urine specimen obtained by clean catch procedure / Unknown 03/19/2025 03/19/2025 Comment:UACC Narrative [facility] - 03/20/2025 10:56 AM EDT Urine Culture No growth. Specimen Source: Urine clean catch Aisha Munson MD LAB MICROBIOLOGY - GENERAL ORDERABLES Final Result Performing Organization Address [facility]/ZIP Co de Phone Number [facility] [address] [place] [phone] documented in this encounter Visit Diagnoses Diagnosis Bacterial vaginosis- Primary Unspecified vaginitis and vulvovaginitis documented in this encounter Care Teams Drug Coordinator Relationship Specialty Start Date End Date Davis Lucas CNP PCP - General Family Medicine 01/14/25 documented as of this encounter
--- OUTSIDE RECORDS SUMMARY | 2025-05-22 19:37 | XMS_ITS | Clinical Summary ---
Author Organization [facility] Address [address] [place] [address] Care Team Providers Care Mobile Equipment Servicer Name Role Phone Balaji See MD Primary Care Provider Social History Tobacco Use Types Packs/Day Years [...] age to complete this topic Care Teams Mobile Equipment Servicer Relationship Specialty Start Date End Date Balaji See MD [address] [place] [address] PCP - General Internal Medicine 05/16/16
--- OUTSIDE RECORDS SUMMARY | 2025-05-22 19:37 | XMS_ITS | Encounter Summary ---
Author Organization [employer] Address [address] [facility] 7t [place] [address] Care Team Providers Care Fire Ranger Name Role Phone Davis Lucas CNP Primary Care Provider [phone] Encounter Details Date Type Department Care Team ([facility] st Contact Info) Description 03/20/2025 Results Follow-Up [facility] [address] [place], [place] [phone] Aisha Munson MD [address] [place] [address] POCT Urinalysis, Chlamydia/N. Gonorrhoeae RNA, TMA, Vaginal, [...] Health Questionnaire-2 Score 3 02/2025 1:16 PM Cece Garzon [place] * Little interest or pleasure in doing things Answer Date of Assessment Author Several days 05/13/2025 1:16 PM Cece Garzon [place] * Feeling down, depressed, or hopeless Answer Date of Assessment Author More than half the days 05/13/2025 1:16 PM EST Cece Ly [place] * Trouble falling or staying asleep, [...] on filedocumented in this encounter Care Teams Fire Ranger Relationship Specialty Start Date End Date Davis Lucas CNP PCP - General Family Medicine 01/14/25 documented as of this encounter
[2025-05-23 00:37] LABS: Bacterial Vaginosis PCR NEGATIVE (Negative); Candida Group PCR NOT DETECTED (Not Detect); Candida glab krusei PCR NOT DETECTED (Not Detect); Trichomonas vaginalis PCR NOT DETECTED (Not Detect)
[2025-05-23 01:08] LABS: CT PCR NOT DETECTED (Not Detect.); NG PCR NOT DETECTED (Not Detect.)
== END 2025-05-22 16:09 | disposition home or self-care (01) ==
LOC: HO.HHCLNP 16:08
PROVIDERS: Visit Provider Family Medicine
DX: R30.0 Dysuria (principal); Z20.2 Contact with and (suspected) exposure to infections with a predominantly sexual mode of transmission
CPT/HCPCS: 81515; 87086; 87491; 87591